=== PATIENT | female | born 1975 | race Caucasian/White ===

== ENCOUNTER 2020-05-12 14:20 | Outpatient (REF) | payer OTHER, SELFPAY ==
--- NOTE | 2020-05-12 14:57 | XR_ITS ---
EXAMINATION: XR FOOT, RIGHT CLINICAL INFORMATION: Pain in right foot COMPARISON: 04/17/2019 right ankle radiographs TECHNIQUE: AP, lateral, and oblique views of the right foot. FINDINGS: There is no fracture or dislocation. Alignment is anatomic. Joint spaces are maintained. The soft tissues are unremarkable. There is moderate hypertrophic spurring of the Achilles insertion to the calcaneus. XR/XR foot RT 2V IMPRESSION: Prominent Achilles heel spur. Otherwise unremarkable study.
== END 2020-05-12 14:21 | disposition home or self-care (01) ==
LOC: HO.XRAY 14:20
PROVIDERS: PCP Internal Medicine Geriatric Medicine; Visit Provider Internal Medicine Geriatric Medicine
DX: M79.671 Pain in right foot (principal)
CPT/HCPCS: 73620

== ENCOUNTER 2020-06-11 09:32 | Outpatient (REF) | payer OTHER, SELFPAY ==
--- NOTE | 2020-06-11 09:45 | EMG_ITS ---
Right median and ulnar motor and sensory studies were performed. Right radial sensory study was performed and paraspinal muscles were tested. IMPRESSION: Mild right median neuropathy across carpal tunnel. MD THERESA Swift/DOLLY / [id number]
== END 2020-06-11 09:33 | disposition home or self-care (01) ==
LOC: HO.NEURO 09:32
PROVIDERS: PCP Internal Medicine Geriatric Medicine; Visit Provider Internal Medicine Geriatric Medicine
DX: R20.0 Anesthesia of skin (principal)
CPT/HCPCS: 95886; 95909

== ENCOUNTER 2020-10-19 15:09 | Outpatient (REF) | payer OTHER, SELFPAY ==
[2020-10-19 16:20] LABS: MANUAL DIFF FLAG NO
[2020-10-19 16:29] LABS: Basophils Percent Auto 0.2 % (0-2); Eosinophils Absolute Auto 0.2 X10*3/uL (0.0-0.4); Eosinophils Percent Auto 1.6 % (0-4); Hematocrit 38.1 % (37-47); Hemoglobin 12.1 g/dl (12.0-16.0); Imm Gran Abs Auto 0.03 X10*3/uL (0.00-0.03); Imm Gran Pct Auto 0.3 % (0.0-0.4); Lymphocytes Absolute Auto 3.2 X10*3/uL (1.2-4.9); Lymphocytes Percent Auto 35.4 % (20-40); Mean Corpuscular HGB Conc 31.8 g/dl (31.0-35.0); Mean Corpuscular Hemoglobin 28.7 pg (27.0-33.0); Mean Corpuscular Volume 90.3 fL (80-98); Mean Platelet Volume 10.3 fL (9.4-12.3); Monocytes Absolute Auto 0.6 X10*3/uL (0.1-1.2); Monocytes Percent Auto 6.8 % (2-11); Neutrophils Absolute Auto 5.1 X10*3/uL (2.0-8.3); Neutrophils Percent Auto 55.7 % (45-73); Platelet Count 377 X10*3/uL (160-400); Red Blood Count 4.22 X10*6/uL (4.20-5.50); Red Cell Distribution Width 13.2 % (11.0-16.0); White Blood Count 9.1 X10*3/uL (4.8-10.8)
[2020-10-19 17:03] LABS: Alanine Aminotransferase 15 U/L (0-31); Albumin Level 4.3 g/dL (3.5-5.0); Alkaline Phosphatase 71 U/L (39-117); Amylase 29 U/L (28-100); Anion Gap 14 (12-20); Aspartate Amino Transferase 14 U/L (5-31); Bilirubin Total 0.2 mg/dL (0.0-1.0); Blood Urea Nitrogen 9 mg/dL (9-16); Calcium 9.3 mg/dL (8.4-10.2); Carbon Dioxide 27 mmol/L (22-29); Chloride 105 mmol/L (96-108); Estimated Glomerular Filt Rate 60; Glucose Random 91 mg/dL (60-115); Lipase 19 U/L (8-78); Potassium 3.7 mmol/L (3.3-5.1); Sodium 142 mmol/L (135-145); Total Protein 7.1 g/dL (6.5-8.0)
[2020-10-19 17:51] LABS: Free T4 (Free Thyroxine) 1.21 ng/dL (0.71-1.85)
[2020-10-19 18:02] LABS: Glucose Urine UA NEG (NEG); Leukocyte Esterase Urine NEG (NEG); Nitrite Urine NEG (NEG); PH 5.5 (5.0-8.0); Specific Gravity - Urine >= 1.030 (1.005-1.025); Urine Blood TRACE (NEG); Urine Ketones 5 MG/DL (NEG); Urine Protein TRACE MG/DL (NEG-TRACE)
[2020-10-19 18:05] LABS: Appearance Urine CLEAR; Color Urine AMBER
[2020-10-19 18:29] LABS: Bacteria Urine 3+ /LPF; RBC Urine 0-2 /HPF (0); Squamous Epithelial Cell Urine 3+ /LPF
== END 2020-10-19 15:10 | disposition home or self-care (01) ==
LOC: HO.HMGCLDS 15:09
PROVIDERS: PCP Internal Medicine Geriatric Medicine; Visit Provider Nurse Practitioner Family
DX: R10.9 Unspecified abdominal pain (principal)
CPT/HCPCS: 36415; 80053; 81001; 81003; 82150; 83690; 84439; 84443; 85025

== ENCOUNTER → 2021-03-16 14:08 | Outpatient (REF) | payer OTHER, SELFPAY | LOC: HO.SL 14:08 | PROVIDERS: PCP Internal Medicine Geriatric Medicine; Visit Provider Internal Medicine Geriatric Medicine | DX: R06.81 Apnea, not elsewhere classified (principal); R06.83 Snoring; R40.0 Somnolence; R51.9 Headache, unspecified | CPT/HCPCS: 95806 ==

== ENCOUNTER 2021-05-04 14:33 | Outpatient (REF) | payer OTHER, SELFPAY ==
--- NOTE | ~2021-05-04 | XR_ITS ---
EXAMINATION: XR FOOT, RIGHT CLINICAL INFORMATION: Pain COMPARISON: Previous x-ray April 2020 TECHNIQUE: AP, lateral, and oblique views of the right foot. FINDINGS: Bone alignment is normal. No fracture or dislocation is seen. Joint spaces are normal. There is a calcaneal spur at the Achilles tendon insertion. XR/XR foot RT min 3V IMPRESSION: Calcaneal spur at the Achilles tendon insertion similar to previous exam.
--- NOTE | ~2021-05-04 | XR_ITS ---
EXAMINATION: XR LUMBOSACRAL SPINE WITH OBLIQUES CLINICAL INFORMATION: Pain COMPARISON: Previous x-ray March 2014 TECHNIQUE: AP, both oblique, and lateral views of the lumbar spine. Lateral view of the lumbosacral junction. FINDINGS: Bone alignment is normal. No fracture or dislocation is seen. There is mild disc space narrowing at L5-S1. There is lower lumbar spine facet arthritis. Paraspinal soft tissues are unremarkable. XR/XR lumbar spine 4V min IMPRESSION: Mild degenerative changes of the lower lumbar spine.
[2021-05-04 15:11] LABS: Hematocrit 35.1 % (37.0-47.0); Hemoglobin 11.6 g/dl (12.0-16.0); Mean Corpuscular Volume 87.8 fL (80.0-98.0); Mean Platelet Volume 9.8 fL (9.4-12.3); Platelet Count 354 X10*3/uL (160-400); Red Cell Distribution Width 13.1 % (11.0-16.0); White Blood Count 9.6 X10*3/uL (4.8-10.8)
[2021-05-04 15:24] LABS: Estimated Average Glucose 123 mg/dL; Hemoglobin A1c % 5.9 %
[2021-05-04 15:39] LABS: Alanine Aminotransferase 26 U/L (0-31); Albumin Level 4.4 g/dL (3.5-5.0); Alkaline Phosphatase 71 U/L (39-117); Anion Gap 12 (12-20); Aspartate Amino Transferase 18 U/L (5-31); Bilirubin Total 0.4 mg/dL (0.0-1.0); Blood Urea Nitrogen 6 mg/dL (9-16); Calcium 8.3 mg/dL (8.4-10.2); Carbon Dioxide 28 mmol/L (22-29); Chloride 105 mmol/L (96-108); Cholesterol 250 mg/dL; Estimated Glomerular Filt Rate > 60; Glucose Random 97 mg/dL (60-115); HDL Cholesterol 32 mg/dL; LDL Cholesterol Calculated 169 mg/dl; Potassium 3.9 mmol/L (3.3-5.1); Sodium 141 mmol/L (135-145); Total Protein 7.2 g/dL (6.5-8.0); Triglycerides 245 mg/dL
[2021-05-04 16:00] LABS: TSH reflex Free T4 0.29 uIU/mL (0.32-4.0)
[2021-05-04 17:28] LABS: Free T4 (Free Thyroxine) 1.15 ng/dL (0.71-1.85)
== END 2021-05-04 14:34 | disposition home or self-care (01) ==
LOC: HO.XRAY 14:33
PROVIDERS: PCP Internal Medicine Geriatric Medicine; Visit Provider Internal Medicine Geriatric Medicine
DX: Z00.00 Encounter for general adult medical examination without abnormal findings (principal); M54.59 Other low back pain; M79.671 Pain in right foot; E03.9 Hypothyroidism, unspecified; G89.29 Other chronic pain; M54.50 Low back pain, unspecified; Z13.1 Encounter for screening for diabetes mellitus; Z13.220 Encounter for screening for lipoid disorders; Z72.0 Tobacco use
CPT/HCPCS: 36415; 72110; 73630; 80053; 80061; 83036; 84439; 84443; 85027

== ENCOUNTER 2021-05-07 13:58 | Outpatient (REF) | payer OTHER, SELFPAY ==
--- NOTE | ~2021-05-07 | XR_ITS ---
EXAMINATION: XR KNEE, RIGHT CLINICAL INFORMATION: Pain COMPARISON: None TECHNIQUE: Four views of the right knee. FINDINGS: Bones and soft tissues are normal. No fracture or joint effusion. Alignment is anatomic. Joint spaces are well maintained. No abnormal soft tissue calcification. XR/XR knee RT 4V IMPRESSION: Normal right knee.
== END 2021-05-07 13:59 | disposition home or self-care (01) ==
LOC: HO.XRAY 13:58
PROVIDERS: Visit Provider Internal Medicine Geriatric Medicine
DX: M25.561 Pain in right knee (principal)
CPT/HCPCS: 73564

== ENCOUNTER 2021-06-03 09:34 | Outpatient (REF) | payer OTHER, SELFPAY ==
--- NOTE | ~2021-06-03 | US_ITS ---
EXAMINATION: US SOFT TISSUE CLINICAL INFORMATION: Posterior right knee pain. Assess for popliteal fossa cyst. COMPARISON: Radiographs right knee 05/07/2021 TECHNIQUE: Ultrasound right popliteal fossa is performed using grayscale imaging and color Doppler. FINDINGS: There is a popliteal fossa cyst measuring 3.5 x 0.8 x 2.6 cm. There is a small satellite fluid extension measuring under 1 cm. US/US extremity nonvascular IMPRESSION: Small popliteal fossa cyst, larger component 3.5 x 0.8 x 2.6 cm.
== END 2021-06-03 09:35 | disposition home or self-care (01) ==
LOC: HO.HMGCX 09:34
PROVIDERS: PCP Internal Medicine Geriatric Medicine; Visit Provider Nurse Practitioner Primary Care
DX: M25.561 Pain in right knee (principal)
CPT/HCPCS: 76882

== ENCOUNTER 2021-06-28 12:50 | Outpatient (REF) | payer OTHER, SELFPAY | END 2021-06-28 12:51 | disposition home or self-care (01) | LOC: HO.HMGCLDS 12:50 | PROVIDERS: Visit Provider Internal Medicine | DX: Z20.822 Contact with and (suspected) exposure to COVID-19 (principal) | CPT/HCPCS: C9803; U0003; U0005 ==

== ENCOUNTER 2021-07-05 12:29 | Outpatient (REF) | payer OTHER, SELFPAY ==
[2021-07-05 13:14] LABS: Binax Internal Control QC Valid; Binax Now Covid-19 Ag Negative (Negative)
== END 2021-07-05 12:30 | disposition home or self-care (01) ==
LOC: HO.EMPCOV 12:29
PROVIDERS: Visit Provider Internal Medicine
DX: Z20.822 Contact with and (suspected) exposure to COVID-19 (principal)
CPT/HCPCS: 36415; C9803

== ENCOUNTER 2021-07-19 06:36 | Outpatient (REF) | payer OTHER, SELFPAY ==
[2021-07-19 07:33] LABS: Cholesterol 288 mg/dL; HDL Cholesterol 35 mg/dL; LDL Cholesterol Calculated 211 mg/dl; Triglycerides 214 mg/dL
== END 2021-07-19 06:37 | disposition home or self-care (01) ==
LOC: HO.LAB 06:36
PROVIDERS: PCP Internal Medicine Geriatric Medicine; Visit Provider Internal Medicine Geriatric Medicine
DX: M25.561 Pain in right knee (principal)
CPT/HCPCS: 36415; 80061

== ENCOUNTER 2021-10-19 14:55 | Outpatient (REF) | payer OTHER, SELFPAY ==
--- NOTE | ~2021-10-19 | MM_ITS ---
EXAMINATION: MM SCREENING DIGITAL BREAST TOMOSYNTHESIS, BILATERAL CLINICAL INFORMATION: Screening. Asymptomatic. The lifetime risk of breast cancer based on the Tyrer-Cuzick Model is 7%. COMPARISON: Mammography: 11/15/2018, 10/06/2016 TECHNIQUE: Digital breast tomosynthesis is performed in both the craniocaudal and mediolateral oblique views along with computer-aided detection (CAD). Synthesized 2D images are generated from the tomosynthesis. FINDINGS: There are scattered areas of fibroglandular density (ACR BI-RADS breast composition Category b). Findings fibronodular parenchymal pattern is similar to prior studies. No interval significant mass or architectural abnormality or abnormal calcifications. The axilla and skin contours are unremarkable. MM/MM tomosynthesis screening BI IMPRESSION: No significant changes from prior studies. ASSESSMENT: BI-RADS 2: Benign RECOMMENDATION: Routine annual mammography screening. This patient's information was entered into a reminder system with a target due date for their next mammogram.
== END 2021-10-19 14:56 | disposition home or self-care (01) ==
LOC: HO.MAMMO 14:55
PROVIDERS: PCP Internal Medicine Geriatric Medicine; Visit Provider Internal Medicine Geriatric Medicine
DX: Z12.31 Encounter for screening mammogram for malignant neoplasm of breast (principal)
CPT/HCPCS: 77063; 77067

== ENCOUNTER 2022-02-14 07:05 | Outpatient (REF) | payer OTHER, SELFPAY ==
[2022-02-14 08:33] LABS: Hematocrit 36.3 % (37.0-47.0); Hemoglobin 11.5 g/dl (12.0-16.0); Mean Corpuscular HGB Conc 31.7 g/dl (31.0-35.0); Mean Corpuscular Hemoglobin 27.6 pg (27.0-33.0); Mean Corpuscular Volume 87.3 fL (80.0-98.0); Mean Platelet Volume 10.3 fL (9.4-12.3); Platelet Count 407 X10*3/uL (160-400); Red Blood Count 4.16 X10*6/uL (4.20-5.50); Red Cell Distribution Width 13.4 % (11.0-16.0); White Blood Count 8.8 X10*3/uL (4.8-10.8)
[2022-02-14 08:38] LABS: Estimated Average Glucose 134 mg/dL; Hemoglobin A1c % 6.3 %
[2022-02-14 08:57] LABS: Alanine Aminotransferase 41 U/L (0-31); Albumin Level 4.2 g/dL (3.5-5.0); Alkaline Phosphatase 86 U/L (39-117); Anion Gap 16 (12-20); Aspartate Amino Transferase 30 U/L (5-31); Bilirubin Direct < 0.2 mg/dL (0.0-0.5); Bilirubin Total 0.2 mg/dL (0.0-1.0); Blood Urea Nitrogen 12 mg/dL (9-16); Calcium 9.3 mg/dL (8.4-10.2); Carbon Dioxide 26 mmol/L (22-29); Chloride 103 mmol/L (96-108); Cholesterol 272 mg/dL; Estimated Glomerular Filt Rate > 60; Glucose Random 137 mg/dL (60-115); HDL Cholesterol 37 mg/dL; LDL Cholesterol Calculated 200 mg/dl; Potassium 3.9 mmol/L (3.3-5.1); Sodium 141 mmol/L (135-145); Total Protein 7.3 g/dL (6.5-8.0); Triglycerides 179 mg/dL
[2022-02-14 10:06] LABS: Free T4 (Free Thyroxine) 0.55 ng/dL (0.71-1.85)
== END 2022-02-14 07:06 | disposition home or self-care (01) ==
LOC: HO.LAB 07:05
PROVIDERS: PCP Internal Medicine Geriatric Medicine; Visit Provider Internal Medicine Geriatric Medicine
DX: E03.9 Hypothyroidism, unspecified (principal); E78.00 Pure hypercholesterolemia, unspecified; R63.5 Abnormal weight gain; Z13.1 Encounter for screening for diabetes mellitus; Z79.899 Other long term (current) drug therapy
CPT/HCPCS: 36415; 80048; 80061; 80076; 83036; 84439; 84443; 85027

== ENCOUNTER 2022-03-11 07:17 | Outpatient (REF) | payer OTHER, SELFPAY ==
--- NOTE | ~2022-03-11 | MR_ITS ---
EXAMINATION: MR LUMBAR SPINE WITHOUT CONTRAST CLINICAL INFORMATION: Bilateral lower extremity weakness and numbness. COMPARISON: Lumbar spine radiographs 05/04/2021. TECHNIQUE: MRI of the lumbar spine was obtained using routine sequences without contrast. FINDINGS: Alignment is normal. Vertebral heights are preserved. No acute bone marrow signal changes. There is slight loss of intervertebral disc height and T2 signal intensity at L5-S1. There is a shallow left central protrusion at L5-S1 causing indentation of the thecal sac and abutment of both traversing S1 nerve roots. Otherwise no mass effect on the traversing or foraminal nerve roots elsewhere within the lumbar spine. No canal stenosis. The tip of the conus medullaris is located at L1. No mass effect on the conus. Visualized distal cord signal intensity is normal. Limited visualization of the retroperitoneal anatomy reveals no abnormal finding. Psoas and paraspinal superficial symmetric. MR/MR lumbar spine wo con IMPRESSION: There is a broad shallow left central protrusion at L5-S1 causing abutment of both traversing S1 nerve roots. Otherwise no substantial mass effect on the traversing or foraminal nerve roots elsewhere the lumbar spine. No canal stenosis.
== END 2022-03-11 07:18 | disposition home or self-care (01) ==
LOC: HO.MRI 07:17
PROVIDERS: Visit Provider Internal Medicine Geriatric Medicine
DX: M54.16 Radiculopathy, lumbar region (principal); R20.0 Anesthesia of skin; R20.2 Paresthesia of skin; R29.898 Other symptoms and signs involving the musculoskeletal system
CPT/HCPCS: 72148

== ENCOUNTER 2022-03-16 05:57 | Outpatient (REF) | payer OTHER, SELFPAY ==
--- NOTE | ~2022-03-16 | FL_ITS ---
EXAMINATION: XR FLUOROSCOPY WITH IMAGES CLINICAL INFORMATION: M54.16 - Radiculopathy, lumbar region COMPARISON: MR lumbar spine 03/11/2022 TECHNIQUE: Fluoroscopy performed by Dr. Tab Arroyo. Fluoroscopy time: 0.1 minutes. Cumulative Dose: 5.29 mGy. DAP: 0.667 Gy-cm2. Images: 2. FINDINGS: There is posterior interlaminar spinal needle at level of L5-S1. There is contrast in the epidural space. No visible vascular communication. FL/FL guidance in treatment room IMPRESSION: Fluoroscopy for pain management procedure.
== END 2022-03-16 05:58 | disposition home or self-care (01) ==
LOC: HO.RADIR 05:57
PROVIDERS: Visit Provider Internal Medicine
DX: M54.16 Radiculopathy, lumbar region (principal)
CPT/HCPCS: 62323; J1040

== ENCOUNTER 2022-05-09 06:23 | Outpatient (REF) | payer OTHER, SELFPAY ==
[2022-05-09 08:10] LABS: Estimated Average Glucose 137 mg/dL; Hemoglobin A1C 143.1744 umol/L; Hemoglobin A1c % 6.4 %
[2022-05-09 08:40] LABS: Anion Gap 16 (12-20); Blood Urea Nitrogen 12 mg/dL (9-16); Calcium 9.6 mg/dL (8.4-10.2); Carbon Dioxide 24 mmol/L (22-29); Chloride 108 mmol/L (96-108); Estimated Glomerular Filt Rate > 60; Glucose Random 115 mg/dL (60-115); Potassium 4.2 mmol/L (3.3-5.1); Sodium 144 mmol/L (135-145); TSH reflex Free T4 0.72 uIU/mL (0.32-4.0)
== END 2022-05-09 06:24 | disposition home or self-care (01) ==
LOC: HO.LAB 06:23
PROVIDERS: PCP Internal Medicine Geriatric Medicine; Visit Provider Internal Medicine Geriatric Medicine
DX: E03.9 Hypothyroidism, unspecified (principal); R73.03 Prediabetes
CPT/HCPCS: 36415; 80048; 83036; 84443

== ENCOUNTER 2022-06-28 16:00 | Outpatient (RCR) | payer OTHER, SELFPAY ==
--- NOTE | 2022-05-10 17:55 | MHC.PT.EP ---
[facility] [place] Office [place] Office [place] Office [address] Julissa Lyon [address] [phone] F: [phone] F: [phone] F: [phone] F: [phone] Physical Therapy Plan of Care Date of Evaluation: Date of Surgery: N/A Diagnosis: lumbar radiculopathy (RC) Assessment: pt is a 47 y/o female presenting to physical therapy w/ referring diagnosis of lumbar radiculopathy. MRI (+) for disc protrusion at level L5-S1 affected B nerve roots. Impairments include pain, decreased range of motion, decreased strength, impaired functional mobility, impaired postural awareness, and altered ambulation mechanics. pt is a good candidate for skilled PT due to age, potential remediation of impairments, typical disease/condition progression and prognosis, comorbidities, and motivation. pt would benefit from skilled PT intervention to provide a tailored strengthening and stretching exercise program, functional training, gait training, postural re-training, neuromuscular re-education, modalities as needed for pain, equipment safety demonstration. Frequency and Duration: The patient will be seen 2x/wk for 4 wks Short Term Goals: pt will be I w/ HEP to promote self-management of condition. pt will demo proper sitting posture w/ lumbar roll to promote neutral spine w/ seated ADLs. 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 pt will report a statistically significant improvement in self-reported outcome measure, Kaley, to promote return to PLOF. Treatment Plan: Modalities to reduce pain, spasms and effusion. Manual therapy to restore motion and function. Therapeutic exercise to improve strength and flexibility. Neuromuscular re-education for posture and balance. Therapeutic activities to return to functional activities of daily living. Electronically signed by: Daniela Locke PT, DPT Please sign and return to therapist. Thank you for your referral.
--- NOTE | 2022-07-27 15:09 | MHC.PT.DC ---
[facility] [place] Office [place] Office [place] Office [address] Julissa Lyon [address] [phone] F: [phone] F: [phone] F: [phone] F: [phone] Physical Therapy Discharge Report Diagnosis: lumbar radiculopathy (RC) Date of Surgery: N/A Date of Evaluation: 05/10/22 Date of Discharge: 07/27/22 Treatments to Date: 8 Cancellations to Date: 4 No Shows to Date: 1 Discharge Status: Improved Function Independent with HEP Discharge Summary: The patient has not followed-up with any additional appointments in nearly a month. At her last appointment on 06/28/22 she was reporting 2/10 pain and was compliant with home exercise program. She was educated in proper lifting mechanics and encouraged to continue with her exercise program at home. She is discharged from this physical therapy plan of care. Electronically signed by: Daniela Locke PT, DPT Please sign and return to therapist. Thank you for your referral.
== END 2022-07-27 15:09 | disposition home or self-care (01) ==
LOC: HO.PT 16:00
PROVIDERS: PCP Internal Medicine Geriatric Medicine; Visit Provider Internal Medicine
DX: M54.16 Radiculopathy, lumbar region (principal)
CPT/HCPCS: 97110; 97112; 97162; 97530

== ENCOUNTER → 2022-07-04 15:48 | Outpatient (BNVA) | payer OTHER, SELFPAY | PROVIDERS: PCP Internal Medicine Geriatric Medicine; Visit Provider Internal Medicine | DX: Z13.89 Encounter for screening for other disorder (principal) ==

== ENCOUNTER 2022-07-13 06:08 | Outpatient (REF) | payer OTHER, SELFPAY ==
--- NOTE | ~2022-07-13 | FL_ITS ---
EXAMINATION: XR FLUOROSCOPY WITH IMAGES CLINICAL INFORMATION: Radiculopathy lumbar region. COMPARISON: 03/16/2022 TECHNIQUE: Fluoroscopy Supervised By: Dr. Tab Arroyo. Fluoroscopy Time: 0.3 minutes. Cumulative Dose: 23.3 mGy. DAP: 1.88 Gycm2. Images: 2. FINDINGS: Very limited AP and oblique fluoroscopic images are available for review. On provided imaging, I cannot tell at what disc space the needle and contrast are. FL/FL guidance in treatment room IMPRESSION: Intraoperative fluoroscopy for pain management procedure.
== END 2022-07-13 06:09 | disposition home or self-care (01) ==
LOC: CF 06:08
PROVIDERS: Visit Provider Internal Medicine
DX: M54.16 Radiculopathy, lumbar region (principal)
CPT/HCPCS: 62323; J1040

== ENCOUNTER → 2022-08-12 10:02 | Outpatient (BNVA) | payer OTHER, SELFPAY | PROVIDERS: PCP Internal Medicine Geriatric Medicine; Visit Provider Internal Medicine | DX: Z13.89 Encounter for screening for other disorder (principal) ==

== ENCOUNTER → 2022-08-19 10:09 | Outpatient (BNVA) | payer OTHER, SELFPAY | PROVIDERS: PCP Internal Medicine Geriatric Medicine; Visit Provider Internal Medicine Gastroenterology | DX: Z13.89 Encounter for screening for other disorder (principal) ==

== ENCOUNTER 2022-08-24 14:15 | Outpatient (REF) | payer OTHER, SELFPAY ==
[2022-08-24 16:18] LABS: MANUAL DIFF FLAG NO
[2022-08-24 17:41] LABS: Basophils Percent Auto 0.3 % (0-2); Eosinophils Absolute Auto 0.2 X10*3/uL (0.0-0.4); Eosinophils Percent Auto 1.7 % (0-4); Hematocrit 38.1 % (37.0-47.0); Hemoglobin 12.1 g/dl (12.0-16.0); Imm Gran Abs Auto 0.09 X10*3/uL (0.00-0.03); Lymphocytes Absolute Auto 3.2 X10*3/uL (1.2-4.9); Lymphocytes Percent Auto 33.6 % (20-40); Mean Corpuscular HGB Conc 31.8 g/dl (31.0-35.0); Mean Corpuscular Hemoglobin 27.9 pg (27.0-33.0); Mean Corpuscular Volume 87.8 fL (80.0-98.0); Mean Platelet Volume 10.4 fL (9.4-12.3); Monocytes Absolute Auto 0.6 X10*3/uL (0.1-1.2); Monocytes Percent Auto 6.1 % (2-11); Neutrophils Absolute Auto 5.4 x10*3/uL (2.0-8.3); Neutrophils Percent Auto 57.3 % (45-73); Platelet Count 399 X10*3/uL (160-400); Red Blood Count 4.34 X10*6/uL (4.20-5.50); Red Cell Distribution Width 14.2 % (11.0-16.0); White Blood Count 9.4 X10*3/uL (4.8-10.8)
[2022-08-24 18:26] LABS: Alanine Aminotransferase 48 U/L (0-31); Albumin Level 4.3 g/dL (3.5-5.0); Alkaline Phosphatase 88 U/L (39-117); Anion Gap 13 (12-20); Aspartate Amino Transferase 34 U/L (5-31); Bilirubin Total 0.2 mg/dL (0.0-1.0); Blood Urea Nitrogen 9 mg/dL (9-16); Calcium 9.3 mg/dL (8.4-10.2); Carbon Dioxide 27 mmol/L (22-29); Chloride 104 mmol/L (96-108); Estimated Glomerular Filt Rate > 60; Glucose Random 105 mg/dL (60-115); Potassium 4.4 mmol/L (3.3-5.1); Sodium 140 mmol/L (135-145); Total Protein 7.6 g/dL (6.5-8.0)
[2022-08-24 18:45] LABS: Ferritin 42 ng/mL (10-250); Folate 10.4 ng/mL (> or = 4.0); Vitamin B12 202 pg/mL (200-900)
== END 2022-08-24 14:16 | disposition home or self-care (01) ==
LOC: HO.LAB 14:15
PROVIDERS: PCP Internal Medicine Geriatric Medicine; Visit Provider Internal Medicine Gastroenterology
DX: K75.81 Nonalcoholic steatohepatitis (NASH) (principal); D64.9 Anemia, unspecified; R10.9 Unspecified abdominal pain
CPT/HCPCS: 36415; 80053; 82607; 82728; 82746; 85025

== ENCOUNTER 2022-08-26 08:25 | Outpatient (REF) | payer OTHER, SELFPAY ==
--- NOTE | ~2022-08-26 | US_ITS ---
EXAMINATION: US COMPLETE ABDOMEN WITH LIVER ELASTOGRAPHY CLINICAL INFORMATION: Abdominal bloating and pain; anemia. COMPARISON: None. TECHNIQUE: Real-time imaging of the abdominal viscera. Noninvasive ultrasound liver fibrosis assessment is performed using Brigid ElastPQ point quantification shear wave elastography (2D-SWE) with a C5-2 MHz transducer. Multiple elastography samples are obtained. FINDINGS: PANCREAS: Largely obscured by overlapping bowel gas. ABDOMINAL AORTA: The proximal, middle, and distal aortic segments are normal in caliber. INFERIOR VENA CAVA: Visualized portions are normal. LIVER: The liver demonstrates normal size, contour and generally increased echogenicity. No focal lesion or intrahepatic biliary duct dilatation. The right lobe measures 22.2 cm in length. The left lobe measures 14.1 cm in length. Portal flow is towards the liver (hepatopetal). Shear wave liver elastography median stiffness is 1.33 m/s (reference: normal median stiffness is 1.3 m/s or less). IQR/median stiffness to assess sampling precision is 0.0. (reference: good quality data set is IQR/median stiffness of 0.15 or less). GALLBLADDER: Normal. The gallbladder is physiologically distended without evidence of stones, sludge, polyps, wall thickening or pericholecystic fluid. COMMON BILE DUCT: Normal in caliber measuring 0.6 cm in diameter. RIGHT KIDNEY: Normal. No hydronephrosis. No renal calculi or focal parenchymal lesions. The kidney measures 11.7 cm in maximum dimension. LEFT KIDNEY: Normal. No hydronephrosis. No renal calculi or focal parenchymal lesions. The kidney measures 11.6 cm in maximum dimension. SPLEEN: Normal. The spleen measures 9.3 cm in maximum dimension. FREE FLUID: None. US/US abdomen comp w elastography IMPRESSION: 1. There is generalized increase in hepatic echotexture, consistent with fatty infiltration or hepatocellular disease. Please correlate clinically. No focal hepatic mass or intrahepatic biliary dilatation is seen. 2. There is hepatomegaly. 3. Liver elastography: In the absence of other known clinical signs, measurements rule out compensated advanced chronic liver disease. If there are known clinical signs, further testing may be needed for confirmation. REFERENCE: Society of Radiologists in Ultrasound Liver Stiffness Thresholds (2020): LIVER STIFFNESS THRESHOLDS: *Liver Stiffness equal or less than 1.3 m/s: High probability of being normal. *Liver Stiffness less than 1.7 m/s: In the absence of other known clinical signs, rules out compensated advanced chronic liver disease. *Liver Stiffness 1.7-2.1 m/s: Suggestive of compensated advanced chronic liver disease but need further test for confirmation. *Liver Stiffness over 2.1 m/s: Rules in compensated advanced chronic liver disease. *Liver Stiffness over 2.4 m/s: Suggestive of clinically significant portal hypertension. QUALITY OF DATA SET: *IQR/Median value equal or less than 0.15 implies a quality data set. *IQR/Median value over 0.15 implies a poor quality data set. SIGNIFICANT CHANGE FROM PRIOR EXAM: Significant change if liver stiffness measurement is 10% or greater from prior exam. OTHER CONSIDERATIONS: The stage of liver fibrosis may be overestimated in the setting of acute hepatitis, liver inflammation, elevated liver function tests, hepatic vascular congestion, obstructive cholestasis, non-fasting state, and infiltrative diseases such as amyloidosis and lymphoma. In some patients with NAFLD, the liver stiffness thresholds for compensated advanced chronic liver disease may be lower. In causes other than viral hepatitis and NAFLD, liver stiffness thresholds are not well established.
== END 2022-08-26 08:26 | disposition home or self-care (01) ==
LOC: HO.US 08:25
PROVIDERS: Visit Provider Internal Medicine Gastroenterology
DX: D64.9 Anemia, unspecified (principal); R10.9 Unspecified abdominal pain
CPT/HCPCS: 76705; 76981

== ENCOUNTER → 2022-09-15 14:51 | Outpatient (BNVA) | payer OTHER, SELFPAY | PROVIDERS: PCP Internal Medicine Geriatric Medicine; Visit Provider Physician Assistant | DX: Z13.89 Encounter for screening for other disorder (principal) ==

== ENCOUNTER 2022-10-05 08:03 | Outpatient (REF) | payer OTHER, SELFPAY ==
--- NOTE | ~2022-10-05 | MR_ITS ---
EXAMINATION: MR ANKLE WITHOUT CONTRAST, RIGHT CLINICAL INFORMATION: Chronic heel pain, right. COMPARISON: X-ray of the right foot April 2021 and x-ray of the right ankle March 2019. TECHNIQUE: MRI of the right ankle performed without contrast on a high-field MRI scanner. FINDINGS: SUBCUTANEOUS SOFT TISSUES: Mild scattered edema circumferentially about the ankle and visualized foot. PLANTAR FASCIA: Normal. MUSCLES/TENDONS: Minimal heterogeneity of the distal Achilles tendon compatible with tendinosis. No definite tear. Remaining muscles and tendons are normal. NEUROVASCULAR STRUCTURES/TARSAL TUNNEL: Normal. LIGAMENTS: Normal. Subchondral cystic change. TALOCRURAL JOINT: Along the medial aspect of the weightbearing tibial articular surface, there is a 5 mm subchondral cystic change likely reflecting a subtle overlying cartilage abnormality/arthrosis. Talar cartilage is normal. No effusion. Overall mild/focal arthrosis. Remaining bone and joints normal. MR/MR ankle RT wo con IMPRESSION: 1. Mild edema in the subcutaneous soft tissues. 2. Mild arthrosis of the talocrural joint. 3. Minimal tendinosis of the distal Achilles tendon.
== END 2022-10-05 08:04 | disposition home or self-care (01) ==
LOC: HO.MRI 08:03
PROVIDERS: PCP Internal Medicine Geriatric Medicine; Visit Provider Internal Medicine Geriatric Medicine
DX: M79.671 Pain in right foot (principal); G89.29 Other chronic pain
CPT/HCPCS: 73721

== ENCOUNTER → 2022-12-09 09:29 | Outpatient (BNVA) | payer OTHER, SELFPAY | PROVIDERS: PCP Internal Medicine Geriatric Medicine; Visit Provider Internal Medicine Gastroenterology ==

== ENCOUNTER 2022-12-13 07:00 | Outpatient (RCR) | payer OTHER, SELFPAY ==
--- NOTE | 2022-11-07 14:44 | MHC.PT.EP ---
[facility] [place] Office [place] Office [place] Office [address] Julissa Lyon [address] [phone] F: [phone] F: [phone] F: [phone] F: [phone] Physical Therapy Plan of Care Date of Evaluation: Date of Surgery: Diagnosis: Rt LE PERONEAL AND ACHILLES' TENDONITIS-> ROM, GENTLE STRENGTH, PROPRIOCEPTION TRAINING, HEEL CORD STRETCHING Assessment: 47 YO FEMALE REF TO PT FOR Rt ACHILLES' / PERONEAL TENDONITIS GRADUALLY PROGRSSIVE SINCE 02/2020 AND THE Pt DENIESTRAUMA OR INCIDENT. Pt HAD ORTHO CONSULT IN 08/2022 AND WAS ISSUED A TALL WALKING BOOT, WHICH SHE USED BRIEFLY, W RELIEF, HOWEVER, SHE D/C'D BOOT DUE TO EXACERBATION OF HER SCIATICA. 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 SHE STATES HER PAIN IS WORSE W PROLONGED STANDING, SITTING, AND DESCENDING STAIRS. OBJECTIVE FINDINGS:DECR AROM REINALDO ANKLES AND HIPS, (+) GENU RECURVATUM, DECR LUMBOPELVIC STAB W (+) ASYMM, CORE AND PROX LEs WEAKNESS, AND PAIN IN MEDAIL Rt ANKLE/ AND ACHILLES Rt. THE Pt WOULD BENEFIT FROM PT TO ADDRESS THE ABOVE AND TREAT Rt PERONEAL/ ACHILLES' TENDONITIS. Frequency and Duration: The patient will be seen 2 X wk X 5 wks Short Term Goals: *DECR Rt ANKLE/FOOT PAIN TO 2-3/10 W REG ADLs *IMPROVE AROM/ FLEXIB REINALDO LEs, ESPEC DISTALLY *INITIATE LUMBOPELVIC STAB / STRENGTH TO REDUCE LLI EFFECT Dry Chain Operator Goals: *Pt DEMON EFFICIENT GAIT MECHANICS ON LEVEL GROUND AND STAIRS *Pt INDEP W HEP PROGRESSIONAND SELF SX MGMT STRATEGIES *Pt RESUME REG ADLs, ESPEC FITNESS WALKING, EVIDENTW IMPROVED LEFI SCORE (AT EVAL 48/80) *Pt INCRLE STRENGTH BY 1 GRADE Treatment Plan: Modalities to reduce pain, spasms and effusion. Manual therapy to restore motion and function. Therapeutic exercise to improve strength and flexibility. Neuromuscular re-education for posture and balance. Therapeutic activities to return to functional activities of daily living. Electronically signed by: ZOE ALEJO,PT Please sign and return to therapist. Thank you for your referral.
== END 2023-02-17 08:38 | disposition home or self-care (01) ==
LOC: HO.PT 07:00
PROVIDERS: PCP Internal Medicine Geriatric Medicine; Visit Provider Physician Assistant
DX: M76.71 Peroneal tendinitis, right leg (principal); M76.61 Achilles tendinitis, right leg
CPT/HCPCS: 97110; 97162; 97530

== ENCOUNTER 2023-01-11 06:48 | Outpatient (REF) | payer OTHER, SELFPAY ==
[2023-01-11 08:23] LABS: TSH reflex Free T4 17.44 uIU/mL (0.32-4.0)
[2023-01-11 08:39] LABS: Folate 5.9 ng/mL (> or = 4.0); Vitamin B12 211 pg/mL (200-900)
[2023-01-11 08:56] LABS: Free T4 (Free Thyroxine) 0.79 ng/dL (0.71-1.85)
[2023-01-15 18:43] LABS: Histamine Plasma <1.5 ng/mL (< OR = 1.8)
[2023-01-17 21:52] LABS: Intrinsic Factor Antibodies Negative (Negative)
[2023-01-18 16:38] LABS: Parietal Cell Antibody <=20.0 Unit (<=20.0)
== END 2023-01-11 06:49 | disposition home or self-care (01) ==
LOC: HO.LAB 06:48
PROVIDERS: Absent Provider Internal Medicine Gastroenterology; Visit Provider Internal Medicine Geriatric Medicine
DX: R19.7 Diarrhea, unspecified (principal); E53.8 Deficiency of other specified B group vitamins; Z91.018 Allergy to other foods
CPT/HCPCS: 36415; 82607; 82746; 83088; 83516; 83520; 84439; 84443; 86003; 86340

== ENCOUNTER 2023-02-02 08:30 | Outpatient (REF) | payer OTHER, SELFPAY | END 2023-02-02 08:31 | disposition home or self-care (01) | LOC: HO.LNP 08:30 | PROVIDERS: PCP Internal Medicine Geriatric Medicine; Visit Provider Surgery | DX: N76.4 Abscess of vulva (principal) | CPT/HCPCS: 10061; 87070; 87205 ==

== ENCOUNTER 2023-02-02 08:30 | Outpatient (AMB) | payer OTHER, SELFPAY ==
--- NOTE | 2023-02-02 08:37 | A.OFFVIS_ITS ---
Intake Vital Signs 02/02/23 08:41 Height 5 ft 2 in Weight 239 lb BMI 43.7 BP 128/60 Blood Pressure Location Lt brachial Position Standing Pulse 91 Intake Visit Reasons: cyst of groin Intake Note: This patient presents for an assessment for cyst on the genitalia. Patient c/o; reports pain and bleeding, denies draining. Manager Battery Required: No Accompanied by: Self / Same As Patient Allergies bupropion [From WELLBUTRIN] Allergy (Severe, Verified 02/02/23 08:37) HIVES hydrocodone [From VICODIN] Allergy (Severe, Verified 02/02/23 08:37) VOMITING oxycodone [From OXYCONTIN] Allergy (Severe, Verified 02/02/23 08:37) VOMITING, itching tramadol [TRAMADOL] Allergy (Severe, Verified 02/02/23 08:37) VOMITING adhesive tape Allergy (Mild, Verified 02/02/23 08:37) Rash APRICOT Allergy (Severe, Uncoded 02/02/23 08:37) HIVES NARCOTICS Allergy (Severe, Uncoded 02/02/23 08:37) VOMITING Medication List - Last Reconciled 02/02/23 by Jason Jasso MD citalopram 40 mg PO DAILY clindamycin phosphate 1% mL topical BID dextroamphetamine-amphetamine 10 mg 1 tab PO DAILY dextroamphetamine-amphetamine 30 mg ER 1 cap PO QAM levothyroxine 150 mcg PO DAILY naproxen 500 mg PO BID omeprazole 40 mg PO DAILY rifaximin 550 mg PO TID 2 weeks topiramate 50 mg PO BID vitamin B complex (B Complex-Vitamin B12 tablet) 1 tab PO DAILY HPI cyst of groin HPI Details [age] year old female who says she has had swelling and pain on the vulvar area for about 4 days now. This had been worsening. She now says she has severe pain and tenderness. 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 She has no fever or chills. She denies any trauma to the area. 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 Review of Systems Const Denies chills and Denies fever(s) Card Denies chest pain, Denies dyspnea and Denies dyspnea on exertion Resp Denies cough, Denies dyspnea and Denies dyspnea on exertion GI Denies hematochezia and Denies change in bowel habits Denies hematuria Musc Denies back pain and Denies limited range of motion Neuro Denies focal weakness and Denies convulsions Psych Denies depression and Denies mood swings Physical Exam Vital Signs: Last Vital Signs Pulse 91 02/02/23 08:41 BP 128/60 02/02/23 08:41 BMI result Body Mass Index 43.7 Const Other: Obese General: comfortable and no acute distress Orientation/consciousness: patient oriented x3 Neck Neck: Yes no lymphadenopathy Resp Auscultation: clear to auscultation bilaterally Cardio Rhythm: regular rhythm GI Palpation (GI): Soft to palpation, nontender and no guarding Other: Large Right labial swelling with fluctuant mass, very tender Neuro General: patient oriented x3 Office Procedures I&D Drain Details: She was in lithotomy position. The above was prepped and draped. Lidocaine 1% was used for local anesthesia. There was note of a fluctuant mass on the labia majora on the right side. An incision was made using blade 11. Large amounts of pus was drained as soon as the cavity was entered. I probed the cavity with a hemostat to make sure that there were no loculations. The procedure was completed. Cultures were taken. She tolerated procedure well. 20527-Bbteyeit of Skin Abscess, complex All charges added?: Procedure code (CPT) selection complete Assessment & Plan Assessment & Plan (1) Labial abscess: Code(s): N76.4 - Abscess of vulva Plan: I explained to her the technique of I and D of the labial abscess. She understood the procedure as well as the risks, benefits, and alternatives and she had given consent. I and D was done here in the office under local anesthesia. She tolerated procedure well. Large amounts of pus was drained. She will be prescribed antibiotics. Cultures had been taken. I explained to her to take ibuprofen and Tylenol for pain at home. She has to change dressings daily and keep the area clean and dry. Coding Level of Care Code New Pt Level 3 (22775) Diagnoses Labial abscess N76.4 CPT Codes I&D Drain - Drain 2: 22975-Svhtwrvt of Skin Abscess, complex ([id number])
[2023-02-02 08:41] VITALS: BP 128/60; PULSE 91; BMI 43.7
== END 2023-02-02 09:00 | disposition home or self-care (01) ==
PROVIDERS: PCP Internal Medicine Geriatric Medicine; Visit Provider Surgery
DX: N76.4 Abscess of vulva (principal)
CPT/HCPCS: 10061; 99203

== ENCOUNTER 2023-02-16 09:56 | Day surgery (SDC) | payer OTHER, SELFPAY ==
[2023-02-14 10:45] VITALS: BMI 44.4
--- NOTE | 2023-02-15 12:56 | HO.ANESPROP2 ---
Documented by User: Brandie Wood NP 02/15/23 12:57 HPI - Anesthesia Eval Consult details Narrative: 48yo F for Upper Endoscopy PMFSH Active Problems Active Problems: All Active Problems (Updated 02/14/23 @ 10:48 by Stacy Hood RN) Abdominal pain (Acute) Lumbar radiculopathy (Acute) Coccyx pain (Acute) Anemia (Acute) Peroneal tendonitis of right lower leg (Acute) Achilles tendinitis, right leg (Acute) B12 deficiency (Acute) Food allergy (Acute) Labial abscess (Acute) Past Medical History Medical History Anemia B12 deficiency History of postoperative nausea and vomiting Hx of pilonidal cyst Labial abscess Lumbar radiculopathy Family History Family History Brother HTN (hypertension) Brother HTN (hypertension) Father HTN (hypertension) Surgical History Surgical History History of esophagogastroduodenoscopy (EGD) History of hand surgery Hx of abdominoplasty Hx of colonoscopy Hx of elbow surgery Hx of hysterectomy Hx of shoulder surgery Social History Social History Patient Tobacco Use Status: Former Tobacco user Tobacco use type: Cigarette e-Cigarette/Vaping Use: Currently Using Use of substances other than those prescribed or required for medical reasons: No Have you been hit, kicked, punched, or otherwise hurt by someone within the past year? 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 Allergies Allergy/AdvReac Type Severity Reaction Status Date / Time bupropion [From WELLBUTRIN] Allergy Severe HIVES Verified 02/02/23 08:37 hydrocodone [From VICODIN] Allergy Severe VOMITING Verified 02/02/23 08:37 oxycodone [From OXYCONTIN] Allergy Severe VOMITING, Verified 02/02/23 08:37 itching tramadol [TRAMADOL] Allergy Severe VOMITING Verified 02/02/23 08:37 adhesive tape Allergy Mild Rash Verified 02/02/23 08:37 APRICOT Allergy Severe HIVES Uncoded 02/02/23 08:37 NARCOTICS Allergy Severe VOMITING Uncoded 02/02/23 08:37 Home Medications Medication Instructions Recorded Confirmed Last Taken Type citalopram 40 mg tablet 40 mg PO DAILY 10/19/20 02/14/23 Unknown History dextroamphetamine-amphetamine 10 1 tab PO DAILY 10/19/20 02/14/23 Unknown History mg tablet dextroamphetamine-amphetamine ER 1 cap PO QAM 10/19/20 02/14/23 Unknown History 30 mg 24hr capsule,extend release levothyroxine 150 mcg tablet 150 mcg PO DAILY 10/19/20 02/14/23 Unknown History naproxen 500 mg tablet 500 mg PO BID 10/19/20 02/14/23 Unknown History omeprazole 40 mg capsule,delayed 40 mg PO DAILY 10/19/20 02/14/23 Unknown History release clindamycin phosphate 1 % topical 1 appl topical BID 08/19/22 02/14/23 Unknown History solution topiramate 25 mg tablet 50 mg PO BID 02/02/23 02/14/23 Unknown History Exam Exam Date and Time: February 15, 2023 1256 Height,Weight and Vital Signs: Height 5 ft 2 in Weight 110.223 kg Assessment and Plan Assessment Anesthesia Assessment: Chart Reviewed Documented by User: Adali Contreras MD 02/16/23 10:24 [facility] Past Medical History Medical History Anemia B12 deficiency History of postoperative nausea and vomiting Hx of pilonidal cyst Labial abscess Lumbar radiculopathy Family History Family History Brother HTN (hypertension) Brother HTN (hypertension) Father HTN (hypertension) Family history of problems with anesthesia: No Surgical History Surgical History History of esophagogastroduodenoscopy (EGD) History of hand surgery Hx of abdominoplasty Hx of colonoscopy Hx of elbow surgery Hx of hysterectomy Hx of shoulder surgery History of Problems with Anesthesia: No Social History Social History Patient Tobacco Use Status: Former Tobacco user Tobacco use type: Cigarette e-Cigarette/Vaping Use: Currently Using Use of substances other than those prescribed or required for medical reasons: No Have you been hit, kicked, punched, or otherwise hurt by someone within the past year? 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 Allergies Allergy/AdvReac Type Severity Reaction Status Date / Time bupropion [From WELLBUTRIN] Allergy Severe HIVES Verified 02/02/23 08:37 hydrocodone [From VICODIN] Allergy Severe VOMITING Verified 02/02/23 08:37 oxycodone [From OXYCONTIN] Allergy Severe VOMITING, Verified 02/02/23 08:37 itching tramadol [TRAMADOL] Allergy Severe VOMITING Verified 02/02/23 08:37 adhesive tape Allergy Mild Rash Verified 02/02/23 08:37 APRICOT Allergy Severe HIVES Uncoded 02/02/23 08:37 NARCOTICS Allergy Severe VOMITING Uncoded 02/02/23 08:37 Home Medications Medication Instructions Recorded Confirmed Last Taken Type citalopram 40 mg tablet 40 mg PO DAILY 10/19/20 02/14/23 Unknown History dextroamphetamine-amphetamine 10 1 tab PO DAILY 10/19/20 02/14/23 Unknown History mg tablet dextroamphetamine-amphetamine ER 1 cap PO QAM 10/19/20 02/14/23 Unknown History 30 mg 24hr capsule,extend release levothyroxine 150 mcg tablet 150 mcg PO DAILY 10/19/20 02/14/23 Unknown History naproxen 500 mg tablet 500 mg PO BID 10/19/20 02/14/23 Unknown History omeprazole 40 mg capsule,delayed 40 mg PO DAILY 10/19/20 02/14/23 Unknown History release clindamycin phosphate 1 % topical 1 appl topical BID 08/19/22 02/14/23 Unknown History solution topiramate 25 mg tablet 50 mg PO BID 02/02/23 02/14/23 Unknown History Exam Airway Mallampati Class: II TM Dist: >3cm Neck ROM: Full Heart: rrr Lungs: cta Assessment and Plan Final Anesthetic Review Family History of Problems with Anesthesia: No History of Problems with Anesthesia: No ASA Class: II Final Preanesthetic Review: No Changes in Pt Med Stat, Meds/Allgs Chart Reviewed, Consent Obtained/Reviewed and Anes Risks/Benef Reviewed Patient Risk: Low Procedure Risk: Low Anesthetic Plan Anesthetic Plan: MAC: Disposition: Standard PACU
[2023-02-16 10:21] VITALS: BP 125/80; PULSE 79; RESP 18; TEMP 36.3; O2SAT 98; BMI 43.7
[2023-02-16 10:42] VITALS: BP 125/80; PULSE 79; RESP 18; TEMP 36.3; O2SAT 98
[2023-02-16] MEDS: Lactated Ringers 1,000 ML 100 ML IVCONT (10:54)
--- NOTE | 2023-02-16 11:12 | MHC.SHP ---
Pre-Procedural Eval Section A Date of Service: 02/16/23 Section B Chief Complaint: Unspecified abdominal pain,anemia, Relevant Family History (Specify if Yes): No Relevant Social History: Other (specify) (vaping) Present Medications: see Short Stay Collaborative assessment Medical History: Significant History (Anemia B12 deficiency History of postoperative nausea and vomiting Hx of pilonidal cyst Labial abscess Lumbar radiculopathy) History of Previous Operations: Relevant previous surgery/procedure and date(s) (History of esophagogastroduodenoscopy (EGD) History of hand surgery Hx of abdominoplasty Hx of colonoscopy Hx of elbow surgery Hx of hysterectomy Hx of shoulder surgery) Allergies: Allergies Allergy/AdvReac Type Severity Reaction Status Date / Time bupropion [From WELLBUTRIN] Allergy Severe HIVES Verified 02/02/23 08:37 hydrocodone [From VICODIN] Allergy Severe VOMITING Verified 02/02/23 08:37 oxycodone [From OXYCONTIN] Allergy Severe VOMITING, Verified 02/02/23 08:37 itching tramadol [TRAMADOL] Allergy Severe VOMITING Verified 02/02/23 08:37 adhesive tape Allergy Mild Rash Verified 02/02/23 08:37 APRICOT Allergy Severe HIVES Uncoded 02/02/23 08:37 NARCOTICS Allergy Severe VOMITING Uncoded 02/02/23 08:37 Review of Systems Sugical H&P ROS: Negative: Constitution, Cardiovascular, Respiratory, Neurological, Psychiatric, Hem-Onc, Allergic/Immunologic, Gastrointestinal, Genitourinary, Musculoskeletal, Integumentary, Endocrine and Eyes/Ears/Nose/Throat Exam Surgical H&P Exam: Normal: HEENT, Normal: Heart, Normal: Lungs, Normal: Extremities, Normal: Abdomen, Normal: Skin and Normal: Neurological Plan Diagnosis/Plan: Unchanged I have reviewed the history and physical and performed a pertinent physical examination on my patient. No changes have occurred unless specified. Time Spent With Patient Time: Total time managing care of this patient today ____ minutes.
--- NOTE | 2023-02-16 11:45 | W.PM.OPN ---
Operative Note Operative Note Date of Service: 02/16/23 Narrative: Procedure Description: EGD Indication: abdominal pain Anesthesia: MAC FLEXIBLE TRANSORAL UPPER GASTROINTESTINAL ENDOSCOPY UPPER ENDOSCOPY Consent: Indications for the procedure and potential complications of bleeding, perforation, reaction to medications and missed diagnosis were discussed with the patient and informed consent was obtained. Instrument: Olympus GIF H 190 J mid size upper endoscope Monitoring: Vital signs and clinical assessment, continuous EKG monitoring, Pulse oximetry, Carbon Dioxide monitoring and blood pressure monitoring were done throughout the procedure. Procedure: The patient was placed in the left lateral decubitis position and pre-procedure medications were administered and a bite block was placed. The endoscope was inserted into the mouth and advanced under direct vision to the third part of duodenum. A careful inspection was made as the upper endoscope was withdrawn including a retroflexed examination of the proximal stomach; Findings and interventions are described below. Findings: Larynx:normal Esophagus: GE junction at 38 cm, diaphragm hiatus at 38 cm, mild congestion at GEJ, bx taken from here and distal esophagus Stomach: Mild patchy gastric erythema. Biopsies were obtained. Grade 2 flap valve on retroflexed examination of the cardia. minimal gastric movement noted. Duodenum: Normal bulb and descending duodenum, bx taken Intervention: Biopsies as noted above Impression/Findings: mild gastritis mild esophagitis possible gastroparesis PLAN: Await bx GES to r/o gastroparesis
[2023-02-16 11:53] VITALS: BP 130/62; PULSE 90; RESP 16; TEMP 36.6; O2SAT 97
[2023-02-16 12:28] VITALS: BP 114/67; PULSE 69; RESP 18; TEMP 36.2; O2SAT 98
== END 2023-02-16 12:59 | disposition home or self-care (01) ==
PROVIDERS: PCP Internal Medicine Geriatric Medicine; Visit Provider Internal Medicine Gastroenterology
PROC: 0DJ08ZZ Inspection of Upper Intestinal Tract, Via Natural or Artificial Opening Endoscopic (ICD-10-PCS; CPT 43235; principal; 2023-02-16 11:40)
DX: D64.9 Anemia, unspecified (principal); R10.9 Unspecified abdominal pain; K20.80 Other esophagitis without bleeding; K29.70 Gastritis, unspecified, without bleeding; K44.9 Diaphragmatic hernia without obstruction or gangrene; E53.8 Deficiency of other specified B group vitamins; F17.290 Nicotine dependence, other tobacco product, uncomplicated; Z98.890 Other specified postprocedural states; Z88.5 Allergy status to narcotic agent; Z88.9 Allergy status to unspecified drugs, medicaments and biological substances; L23.1 Allergic contact dermatitis due to adhesives
CPT/HCPCS: 43239; 88305; 88342

== ENCOUNTER → 2023-02-16 09:56 | Outpatient (BNV) | payer OTHER, SELFPAY | PROVIDERS: PCP Internal Medicine Geriatric Medicine; Visit Provider Internal Medicine Gastroenterology | DX: R10.9 Unspecified abdominal pain (principal); K29.70 Gastritis, unspecified, without bleeding; K20.90 Esophagitis, unspecified without bleeding | CPT/HCPCS: 43239 ==

== ENCOUNTER 2023-03-03 09:33 | Outpatient (AMB) | payer OTHER, SELFPAY ==
--- NOTE | 2023-03-03 09:35 | A.OFFVIS_ITS ---
Intake Vital Signs 03/03/23 09:40 Weight 330 lb Intake Visit Reasons: S/p egd Intake Note: Patient is present for Procedure follow up States no change in medication Patient states that she is doing well after the procedure. States she feels the same Allergies bupropion [From WELLBUTRIN] Allergy (Severe, Verified 03/03/23 09:40) HIVES hydrocodone [From VICODIN] Allergy (Severe, Verified 03/03/23 09:40) VOMITING oxycodone [From OXYCONTIN] Allergy (Severe, Verified 03/03/23 09:40) VOMITING, itching tramadol [TRAMADOL] Allergy (Severe, Verified 03/03/23 09:40) VOMITING adhesive tape Allergy (Mild, Verified 03/03/23 09:40) Rash APRICOT Allergy (Severe, Uncoded 03/03/23 09:40) HIVES NARCOTICS Allergy (Severe, Uncoded 03/03/23 09:40) VOMITING HPI S/p egd HPI Details 48 yr old f here for f/u RECAP: she had been seeing September for IBS and constipation she feels like she digests food slowly she has a lot of bloating and gas for about 1 year--if this happens she gets pain in sides and epigastric stool is soft, and she goes daily she has GERD and takes omeprazole daily which helps a lot she drinks a lot of water she does not take alcohol, uses vape colonoscopy 2018-- hyperplastic polyps and diverticulosis EGD >10 yrs ago--normal per her recall Labs: 08/2022-- HGB 12 g/dl, b12 --200, ferritin- 42, AST/ALT midlly elevated US 08/2022--- fatty liver EGD 01/2023: Impression/Findings: mild gastritis mild esophagitis possible gastroparesis Path:mild inflammation at GEJ INTERIM: reviewed RAST pos for cows milk, eggs--takes eggs daily she has GES pending no blood in stool no nausea or vomiting no dysphagia second course of rifaximin didn't help as well as first course she has been compliant with b12 EXAM: GENERAL: The patient is well developed and nontoxic. VITAL SIGNS:see workflow HEENT: Nonicteric sclerae, PERRLA, EOMI. Oropharynx clear. Moist mucous membranes. Conjunctivae appear well perfused. No thyroid mass. CHEST: Chest wall is nontender. HEART: Regular rate and rhythm without murmurs. LUNGS: Clear to auscultation bilaterally. ABDOMEN: Soft, positive bowel sounds, nontender, no organomegaly.no flank tenderness SKIN: No rash, no excessive bruising, petechiae, or purpura. NEUROLOGIC: Cranial nerves II-XII intact without motor/sensory deficit. Psych: normal affect A/P: 1/ Bloating and gas -- maybe gastropares is, GES pending 2/ B12 defc, poss food allergy as well-- pos RAST for eggs and milk PLAN: 1/ recheck labs, b12 and abs 2/ avoid eggs and milk (allergy to prote ins that are heat resistant) 3/ GES pending 4/ f/u with PCP for thyroid PFSH Medical History Anemia B12 deficiency History of postoperative nausea and vomiting Hx of pilonidal cyst Labial abscess Lumbar radiculopathy Surgical History History of esophagogastroduodenoscopy (EGD) History of hand surgery Hx of abdominoplasty Hx of colonoscopy Hx of elbow surgery Hx of hysterectomy Hx of shoulder surgery Family History Brother HTN (hypertension) Brother HTN (hypertension) Father HTN (hypertension) Social History Patient Tobacco Use Status: Former Tobacco user Tobacco use type: Cigarette e-Cigarette/Vaping Use: Currently Using 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 Assessment & Plan Assessment & Plan (1) B12 deficiency: Code(s): E53.8 - Deficiency of other specified B group vitamins (2) Food allergy: Code(s): Z91.018 - Allergy to other foods Orders: Orders Vitamin B12 and Folate Today E53.8 - Deficiency of other specified B group vitamins, Z91.018 - Allergy to other foods Intrinsic Factor Antibodies Today E53.8 - Deficiency of other specified B group vitamins, Z91.018 - Allergy to other foods Parietal Cell Antibody Today E53.8 - Deficiency of other specified B group vitamins, Z91.018 - Allergy to other foods Coding Level of Care Code Est Pt Level 3 (38279) Diagnoses B12 deficiency E53.8 Food allergy Z91.018
== END 2023-03-03 10:54 | disposition home or self-care (01) ==
PROVIDERS: PCP Internal Medicine Geriatric Medicine; Visit Provider Internal Medicine Gastroenterology
DX: E53.8 Deficiency of other specified B group vitamins (principal); Z91.018 Allergy to other foods
CPT/HCPCS: 99213

== ENCOUNTER → 2023-03-03 09:33 | Outpatient (BNVA) | payer OTHER, SELFPAY | PROVIDERS: PCP Internal Medicine Geriatric Medicine; Visit Provider Internal Medicine Gastroenterology ==

== ENCOUNTER → 2023-03-09 07:52 | Outpatient (REF) | payer OTHER, SELFPAY ==
--- NOTE | ~2023-03-09 | NM_ITS ---
EXAMINATION: RADIONUCLIDE SOLID FOOD GASTRIC EMPTYING 4-HOUR STUDY CLINICAL INFORMATION: Early satiety. COMPARISON: No previous gastric emptying study is available for comparison. TECHNIQUE: A standard meal consisting of 4 oz of Egg Beaters brand equivalent tagged with 1.0 mCi Tc-99m Sulfur Colloid, 8 oz water and 2 slices of toast with jelly was administered orally to the patient. Images were obtained using a dual head gamma camera in the anterior and posterior projections over of the stomach immediately post ingestion and at hourly intervals up to 4 hours post ingestion. The anterior and posterior counts at each time interval were averaged using the geometric mean and expressed as percentage of the immediate post ingestion counts. FINDINGS: There is good visualization of activity in the stomach immediately post ingestion. As the study progresses, there is good clearance of activity from the stomach and visualization of progressively increasing small bowel activity. By the end of the study, there is almost no retention noted in the stomach. Retention in the stomach at each time interval was: 1 hour 71% (normal 37%-90%) 2 hours 20% (normal 30%-60%) 3 hours 6% 4 hours 5% (normal 0%-10%) NM/NM gastric emptying study IMPRESSION: Normal 4-hour solid food gastric emptying study.
== END ==
LOC: HO.NUCMED 07:52
PROVIDERS: PCP Internal Medicine Geriatric Medicine; Visit Provider Internal Medicine Gastroenterology
DX: R68.81 Early satiety (principal)
CPT/HCPCS: 78264; A9541

== ENCOUNTER 2023-05-25 10:35 | Emergency (ER) | payer OTHER, SELFPAY ==
[2023-05-25 10:44] VITALS: BP 134/80; PULSE 94; RESP 18; TEMP 36.2; O2SAT 98; BMI 41.5
--- NOTE | 2023-05-25 10:55 | ED_ITS ---
HPI - General Adult General Chief complaint: Upper Respiratory Symptoms Stated complaint: facial numbness Time Seen by Provider: 05/25/23 11:27 Source: patient and RN notes reviewed Mode of arrival: ambulatory Limitations: no limitations History of Present Illness HPI narrative: This is a 48-year-old female with a history of depression, anxiety, hypothyroidism, GERD, who presents emergency department with complaints of ongoing subjective fevers, chills, headache, cough, sore throat x1 week. Patient also endorsing intermittent headaches. She states that since 9:00 a.m. this morning she has had some numbness in her face. Denies any difficulty swallowing or breathing. No tingling into her tongue or tongue swelling. She has been taking DayQuil and NyQuil for her symptoms which has provided her with some relief. She denies any chest pain, shortness of breath, weakness. Denies any sick contacts. No other complaints or concerns at this time. MD complaint: Headache, sore throat, fatigue Onset (ago): week(s) Radiation: non-radiation Pain Consistency: constant Relieving factors: none Exacerbating factors: none Associated symptoms: cough, fever/chills, headaches and malaise Treatments prior to arrival: none Related Data Home Medications Medication Instructions Recorded Confirmed citalopram 40 mg tablet 40 mg PO DAILY 10/19/20 02/14/23 dextroamphetamine-amphetamine 10 1 tab PO DAILY 10/19/20 02/14/23 mg tablet dextroamphetamine-amphetamine ER 1 cap PO QAM 10/19/20 02/14/23 30 mg 24hr capsule,extend release levothyroxine 150 mcg tablet 150 mcg PO DAILY 10/19/20 02/14/23 naproxen 500 mg tablet 500 mg PO BID 10/19/20 02/14/23 omeprazole 40 mg capsule,delayed 40 mg PO DAILY 10/19/20 02/14/23 release clindamycin phosphate 1 % topical 1 appl topical BID 08/19/22 02/14/23 solution topiramate 25 mg tablet 50 mg PO BID 02/02/23 02/14/23 Previous Rx's Medication Instructions Recorded vitamin B complex (B 1 tab PO DAILY #90 tabs 12/09/22 Complex-Vitamin B12 tablet) Allergies Allergy/AdvReac Type Severity Reaction Status Date / Time bupropion [From WELLBUTRIN] Allergy Severe HIVES Verified 05/25/23 10:44 hydrocodone [From VICODIN] Allergy Severe VOMITING Verified 05/25/23 10:44 oxycodone [From OXYCONTIN] Allergy Severe VOMITING, Verified 05/25/23 10:44 itching tramadol [TRAMADOL] Allergy Severe VOMITING Verified 05/25/23 10:44 egg Allergy Intermediate Stomach Verified 05/25/23 10:44 Upset adhesive tape Allergy Mild Rash Verified 05/25/23 10:44 APRICOT Allergy Severe HIVES Uncoded 03/03/23 09:40 NARCOTICS Allergy Severe VOMITING Uncoded 03/03/23 09:40 Review of Systems Review of Systems: Yes all other systems are reviewed and are negative Constitutional: Constitutional: Reports as per HPI ENT: Reports Normal hearing present Neurologic: Reports Normal hearing present [facility] Past Medical History Attestation statement: The following information was validated with the patient. Medical History History of postoperative nausea and vomiting B12 deficiency Lumbar radiculopathy Anemia Labial abscess Hx of pilonidal cyst Surgical History Hx of elbow surgery History of hand surgery Hx of hysterectomy Hx of shoulder surgery Hx of abdominoplasty Hx of colonoscopy History of esophagogastroduodenoscopy (EGD) Family History Family History Brother HTN (hypertension) Brother HTN (hypertension) Father HTN (hypertension) Social History Social History Patient Tobacco Use Status: Former Tobacco user Tobacco use type: Cigarette Smoked in Last 30 Days: Yes e-Cigarette/Vaping Use: Currently Using Use of substances other than those prescribed or required for medical reasons: No Advance Directives: No Advance Directives Information Provided: Yes Patient : No 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 Vital Signs: Vital Signs - 24 hr 05/25/23 10:44 05/25/23 12:40 05/25/23 12:46 Temperature 97.1 F Pulse Rate 94 84 77 Respiratory Rate 18 Blood Pressure 134/80 113/77 124/68 Pulse Oximetry 98 Oxygen Delivery Method Room Air 05/25/23 12:46 05/25/23 12:47 Temperature Pulse Rate 84 94 Respiratory Rate Blood Pressure 123/80 119/78 Pulse Oximetry Oxygen Delivery Method BMI result Body Mass Index 41.5 Const General: cooperative, comfortable and no acute distress Orientation/consciousness: patient oriented x3 Limitations: no limitations HENMT Head: Yes normal to inspection, Yes normocephalic and Yes atraumatic Ears: hearing grossly normal bilaterally General nose exam: Normal external nose present Face and sinus: Yes normal facial exam Mouth: Normal oral and palatal mucosa present, oropharynx normal and moist mucous membranes Throat: Yes posterior oropharynx normal Eyes General: appearance normal, both eyes and all related structures Eyelids: Yes eyelids normal Conjunctivae: conjunctivae normal Sclerae: sclerae normal Pupils: Equal, round and reactive pupils present EOM: EOMs intact bilaterally Neck Neck: Yes normal visual inspection, Yes full ROM and Yes no lymphadenopathy Lymphatic: no lymphadenopathy noted Chest Chest palpation & inspection: normal inspection of the chest Resp Effort & Inspection: normal respiratory effort and able to speak in complete sentences Auscultation: clear to auscultation bilaterally, no crackles, no rales, no rhonchi and no wheezes Cardio Rate: regular rate Rhythm: regular rhythm Heart sounds: S1 normal heart sound present and S2 normal heart sound present GI Inspection: Yes normal to inspection Skin General skin exam: no rashes or lesions noted Trauma: no lacerations or abrasions Wounds: no wounds Neuro General: patient oriented x3 and moves all extremities Cranial nerves: Yes CN's II-XII intact bilaterally, Yes Facial sensation intact/muscles of mastication intact, Yes Equal, round and reactive pupils present, Yes Nystagmus not present, Yes Normal facial strength present, Yes Midline tongue present, Yes Symmetric palate elevation present, Yes Normal hearing present, Yes Ability to bilaterally rotate head present and Yes Ability to bilaterally elevate shoulders present Cognition (Neuro): normal cognition Gait exam (Neuro): Normal gait present Motor exam (neuro): 5/5 motor strength present throughout Sensory Exam: Normal double simultaneous stimulation for sensation Coordination: [id number] test normal and aokh-sl-lwoz test normal Romberg Test: Negative Extrem General: Yes normal to inspection Right upper extremity: normal to inspection Left upper extremity: normal to inspection Right lower extremity: normal to inspection Left lower extremity: normal to inspection Medical Decision Making Medical Decision Making MDM Narrative: This is a 48-year-old female presenting to the emergency department for evaluation of fevers, headache, chills, cough, sore throat the last week. Patient has been taking [id number] cold medicine with some relief. She has had some numbness to bilateral facial cheeks since 9:00 a.m. this morning. Patient is fully neurologically intact without any neuro deficits. Given that this is bilateral and not unilateral, this is reassuring and may be attributed to anxiety or viral process. Patient has no facial droop, and equal strength. I discussed these findings with my attending physician, . agrees that close monitoring symptoms is warranted however does not need further interventions given patient is fully neurologically intact with no facial droop. Sanchez's palsy was also considered however no facial droop was seen on exam. Patient does not spend any time outdoors, no recent tick bites or rashes seen. Discussed workup with patient. She understands and agrees with plan. Orthostatic vital signs were negative. Patient given return precautions. Patient stable for discharge Differential Diagnosis Differential Diagnoses: The differential diagnosis associated with the presentation includes Influenza, COVID, viral syndrome, sinusitis Lab Data MDM Lab Attestation statement: I reviewed the patient's lab results. Influenza a positive Labs: Lab Results 05/25/23 Range/Units 11:16 Influenza Type A (PCR) POSITIVE A (Negative) Influenza Type B (PCR) NEGATIVE (Negative) RSV RNA Qual (PCR) NEGATIVE (Negative) SARS-CoV-2 RNA (RT-PCR) NEGATIVE (Negative) Discharge Plan Discharge Clinical Impression: Influenza A Patient Disposition: Home, Self-Care Instructions: Influenza (ED) Additional Instructions: You tested positive for flu A today. This is a virus that does not require treatment. You can treat symptomatically with [id number] cold and cough medicines. Take Tylenol and Motrin as needed for pain and fevers. Drink plenty of fluids get plenty of rest. If any new or worsening symptoms occur including but not limited to worsening headache, facial droop, weakness, chest pain, shortness of breath, please return for re-evaluation. Prescriptions: No Action dextroamphetamine-amphetamine 30 mg capsule,extended release 24hr 1 cap PO QAM levothyroxine 150 mcg tablet 150 mcg PO DAILY dextroamphetamine-amphetamine 10 mg tablet 1 tab PO DAILY citalopram 40 mg tablet 40 mg PO DAILY omeprazole 40 mg capsule,delayed release(DR/EC) 40 mg PO DAILY naproxen 500 mg tablet 500 mg PO BID clindamycin phosphate 1 % solution 1 appl topical BID vitamin B complex [B Complex-Vitamin B12] Tablet 1 tab PO DAILY Qty: 90 3RF topiramate 25 mg tablet 50 mg PO BID Interventions: ED Discharge Assessment Last Done: 05/25/23 12:56 Discharge Date/Time: 05/25/23 12:59
--- NOTE | 2023-05-25 11:12 | PC.NURSE ---
today with numbness and tingling under both eyes down to chin. history of sore throat, cough, now resolved taking nyquil and day quil
[2023-05-25 12:17] LABS: Influenza A PCR POSITIVE (Negative); Influenza B PCR NEGATIVE (Negative); Resp Syncy Virus RNA Qual PCR NEGATIVE (Negative); SARS COV2 PCR INHOUSE NEGATIVE (Negative)
[2023-05-25 12:40] VITALS: BP 113/77; PULSE 84
[2023-05-25 12:46] VITALS: BP 123/80; BP 124/68; PULSE 77; PULSE 84
[2023-05-25 12:47] VITALS: BP 119/78; PULSE 94
== END 2023-05-25 12:59 | disposition home or self-care (01) ==
PROVIDERS: Emergency Provider Emergency Medicine Emergency Medical Services; PCP Internal Medicine Geriatric Medicine
DX: J10.1 Influenza due to other identified influenza virus with other respiratory manifestations (principal); Z20.822 Contact with and (suspected) exposure to COVID-19; Z20.828 Contact with and (suspected) exposure to other viral communicable diseases
CPT/HCPCS: 0241U; 99283; 99284

== ENCOUNTER 2023-08-08 06:17 | Outpatient (REF) | payer OTHER, SELFPAY ==
[2023-08-08 08:17] LABS: TSH reflex Free T4 8.19 uIU/mL (0.32-4.0)
[2023-08-08 08:55] LABS: Free T4 (Free Thyroxine) 0.74 ng/dL (0.71-1.85)
== END 2023-08-08 06:18 | disposition home or self-care (01) ==
LOC: CF 06:17
PROVIDERS: PCP Internal Medicine Geriatric Medicine; Visit Provider Internal Medicine Geriatric Medicine
DX: E03.9 Hypothyroidism, unspecified (principal)
CPT/HCPCS: 36415; 84439; 84443

== ENCOUNTER → 2023-11-24 15:15 | Outpatient (BNV) | payer OTHER, SELFPAY | PROVIDERS: Visit Provider Clinical Nurse Specialist Psychiatric/Mental Health | DX: F33.2 Major depressive disorder, recurrent severe without psychotic features (principal); F90.0 Attention-deficit hyperactivity disorder, predominantly inattentive type | CPT/HCPCS: 99204 ==

== ENCOUNTER → 2023-12-20 12:00 | Outpatient (BNV) | payer OTHER, SELFPAY | PROVIDERS: Visit Provider Psychiatry & Neurology Psychiatry | DX: F33.2 Major depressive disorder, recurrent severe without psychotic features (principal) | CPT/HCPCS: 90867; 90868 ==

== ENCOUNTER 2024-02-27 13:00 | Outpatient (RCR) | payer OTHER, SELFPAY ==
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
--- NOTE | 2023-12-06 12:13 | HO.TMSDAILY2 ---
TMS Daily Progress Note Daily TMS Progress Note Date of Service: 12/20/23 Week #: 1 Treatment #(07-25): 1 PHQ-9 Pre-Treatment (07-22): 20 PHQ-9 Most Recent (07-22): 17 Reviewed: TMS Mapping/Re-mapping completed Verification: I have reviewed the TMS Director Hris Note and agree with the contents. The patient remains a candidate to continue TMS treatment per protocol. Assessment and Plan (1) Major depressive disorder, recurrent severe without psychotic features: Status: Acute Plan Initial mapping completed much more success with Topamax being discontinued patient remains quite depressed good candidate for TMS initial treatment tolerated no adverse effects noted
--- NOTE | 2024-02-14 13:59 | P.PNPS_ITS ---
TMS Daily Progress Note Daily TMS Progress Note Date of Service: 12/21/23 Week #: 1 Treatment #(07-25): 2 PHQ-9 Pre-Treatment (07-22): 20 PHQ-9 Most Recent (07-22): 17 Reviewed: TMS Tech Note Reviewed Verification: I have reviewed the TMS Community Engagement Coordinator Note and agree with the contents. The patient remains a candidate to continue TMS treatment per protocol. Assessment and Plan (1) Major depressive disorder, recurrent severe without psychotic features: Status: Acute Plan MT increase to 80% patient tolerating treatment
--- NOTE | 2024-02-14 14:02 | P.PNPS_ITS ---
TMS Daily Progress Note Daily TMS Progress Note Date of Service: 12/22/23 Week #: 1 Treatment #(07-25): 3 PHQ-9 Pre-Treatment (07-22): 20 PHQ-9 Most Recent (07-22): 17 Reviewed: TMS Tech Note Reviewed Verification: I have reviewed the TMS Division Chair Note and agree with the contents. The patient remains a candidate to continue TMS treatment per protocol. Assessment and Plan (1) Major depressive disorder, recurrent severe without psychotic features: Status: Acute Plan MT at 80% patient tolerating treatment some soreness
--- NOTE | 2024-02-14 14:03 | HO.TMSDAILY2 ---
TMS Daily Progress Note Daily TMS Progress Note Date of Service: 12/25/23 Week #: 1 Treatment #(07-25): 4 PHQ-9 Pre-Treatment (07-22): 20 PHQ-9 Most Recent (07-22): 17 Reviewed: TMS Tech Note Reviewed Verification: I have reviewed the TMS Strike Warfare/Missile Systems Officer Note and agree with the contents. The patient remains a candidate to continue TMS treatment per protocol. Assessment and Plan (1) Major depressive disorder, recurrent severe without psychotic features: Status: Acute Plan MT inc 90 % some discomfort patient some soreness
--- NOTE | 2024-02-14 14:05 | P.PNPS_ITS ---
TMS Daily Progress Note Daily TMS Progress Note Date of Service: 12/26/23 Week #: 1 Treatment #(07-25): 5 PHQ-9 Pre-Treatment (07-22): 20 PHQ-9 Most Recent (07-22): 17 Reviewed: TMS Tech Note Reviewed Verification: I have reviewed the TMS Banking Consultant Note and agree with the contents. The patient remains a candidate to continue TMS treatment per protocol. Assessment and Plan (1) Major depressive disorder, recurrent severe without psychotic features: Status: Acute Plan Patient with relatively high MT 1.31 tolerated 90% threshold feeling okay some discomfort
--- NOTE | 2024-02-14 14:07 | P.PNPS_ITS ---
TMS Daily Progress Note Daily TMS Progress Note Date of Service: 12/27/23 Week #: 2 Treatment #(07-25): 6 PHQ-9 Pre-Treatment (07-22): 20 PHQ-9 Most Recent (07-22): 17 Reviewed: TMS Tech Note Reviewed Verification: I have reviewed the TMS Senior Director Of Strategy Note and agree with the contents. The patient remains a candidate to continue TMS treatment per protocol. Assessment and Plan (1) Major depressive disorder, recurrent severe without psychotic features: Status: Acute Plan Patient with relatively high MT 1.31 tolerated 95% threshold feeling okay some discomfort has chronic insomnia
--- NOTE | 2024-02-14 14:09 | HO.TMSDAILY2 ---
TMS Daily Progress Note Daily TMS Progress Note Date of Service: 12/29/23 Week #: 2 Treatment #(07-25): 7 PHQ-9 Pre-Treatment (07-22): 20 PHQ-9 Most Recent (07-22): 17 Reviewed: TMS Tech Note Reviewed Verification: I have reviewed the TMS Can Filling And Closing Machine Tender Note and agree with the contents. The patient remains a candidate to continue TMS treatment per protocol. Assessment and Plan (1) Major depressive disorder, recurrent severe without psychotic features: Status: Acute Plan Patient with relatively high MT 1.31 tolerated 100% threshold feeling okay some discomfort discomfort noted during treatment under the magnet when pulsing we have reviewed different strategies
--- NOTE | 2024-02-14 14:11 | P.PNPS_ITS ---
TMS Daily Progress Note Daily TMS Progress Note Date of Service: 01/01/24 Week #: 2 Treatment #(07-25): 8 PHQ-9 Pre-Treatment (07-22): 20 PHQ-9 Most Recent (07-22): 17 Reviewed: TMS Tech Note Reviewed Verification: I have reviewed the TMS Professor Of Biochemistry Note and agree with the contents. The patient remains a candidate to continue TMS treatment per protocol. Assessment and Plan (1) Major depressive disorder, recurrent severe without psychotic features: Status: Acute Plan Continue plan of care empty increased to 105 % may start on low-dose trazodone
--- NOTE | 2024-02-14 14:24 | P.PNPS_ITS ---
TMS Daily Progress Note Daily TMS Progress Note Date of Service: 01/02/24 Week #: 2 Treatment #(07-25): 9 PHQ-9 Pre-Treatment (07-22): 20 PHQ-9 Most Recent (07-22): 17 Reviewed: TMS Tech Note Reviewed Verification: I have reviewed the TMS It Infrastructure Manager Note and agree with the contents. The patient remains a candidate to continue TMS treatment per protocol. Assessment and Plan (1) Major depressive disorder, recurrent severe without psychotic features: Status: Acute Plan Continue plan of care patient stated 105% today some difficulty with side effects during treatment
--- NOTE | 2024-02-14 14:25 | P.PNPS_ITS ---
TMS Daily Progress Note Daily TMS Progress Note Date of Service: 01/04/24 Week #: 2 Treatment #(07-25): 10 PHQ-9 Pre-Treatment (07-22): 20 PHQ-9 Most Recent (07-22): 10 Reviewed: TMS Tech Note Reviewed Verification: I have reviewed the TMS Research Kennel Supervisor Note and agree with the contents. The patient remains a candidate to continue TMS treatment per protocol. Assessment and Plan (1) Major depressive disorder, recurrent severe without psychotic features: Status: Acute Plan Continue at 105% MT due to discomfort patient has shown a treatment response for both PHQ-9 in GED
--- NOTE | 2024-02-14 14:28 | P.PNPS_ITS ---
TMS Daily Progress Note Daily TMS Progress Note Date of Service: 01/05/24 Week #: 3 Treatment #(07-25): 11 PHQ-9 Pre-Treatment (07-22): 20 PHQ-9 Most Recent (07-22): 10 Reviewed: TMS Mapping/Re-mapping completed Verification: I have reviewed the TMS Circuit Board Inspector Note and agree with the contents. The patient remains a candidate to continue TMS treatment per protocol. Assessment and Plan (1) Major depressive disorder, recurrent severe without psychotic features: Status: Acute Plan MT increased to 110%
--- NOTE | 2024-02-14 14:33 | HO.TMSDAILY2 ---
TMS Daily Progress Note Daily TMS Progress Note Date of Service: 02/14/24 Week #: 3 Treatment #(07-25): 12 PHQ-9 Pre-Treatment (07-22): 20 PHQ-9 Most Recent (07-22): 6 Reviewed: TMS Tech Note Reviewed Verification: I have reviewed the TMS Holistic Health Practitioner Note and agree with the contents. The patient remains a candidate to continue TMS treatment per protocol. Assessment and Plan (1) Major depressive disorder, recurrent severe without psychotic features: Status: Acute Plan Patient is starting to feel like she is doing better
--- NOTE | 2024-02-14 14:34 | HO.TMSDAILY2 ---
TMS Daily Progress Note Daily TMS Progress Note Date of Service: 02/14/24 Week #: 3 Treatment #(07-25): 13 PHQ-9 Pre-Treatment (07-22): 20 PHQ-9 Most Recent (07-22): 6 Reviewed: TMS Tech Note Reviewed Verification: I have reviewed the TMS Airplane Designer Note and agree with the contents. The patient remains a candidate to continue TMS treatment per protocol. Assessment and Plan (1) Major depressive disorder, recurrent severe without psychotic features: Status: Acute Plan Improved tolerance of treatment
--- NOTE | 2024-02-14 21:11 | HO.TMSDAILY2 ---
TMS Daily Progress Note Daily TMS Progress Note Date of Service: 01/10/24 Week #: 3 Treatment #(07-25): 14 PHQ-9 Pre-Treatment (07-22): 20 PHQ-9 Most Recent (07-22): 6 Reviewed: TMS Tech Note Reviewed Verification: I have reviewed the TMS Hardboard Factory Worker Note and agree with the contents. The patient remains a candidate to continue TMS treatment per protocol. Assessment and Plan (1) Major depressive disorder, recurrent severe without psychotic features: Status: Acute Plan improved continue plan of care
--- NOTE | 2024-02-14 21:14 | HO.TMSDAILY2 ---
TMS Daily Progress Note Daily TMS Progress Note Date of Service: 01/11/24 Week #: 3 Treatment #(07-25): 15 PHQ-9 Pre-Treatment (07-22): 20 PHQ-9 Most Recent (07-22): 6 Reviewed: TMS Tech Note Reviewed Verification: I have reviewed the TMS Game Trapper Note and agree with the contents. The patient remains a candidate to continue TMS treatment per protocol. Assessment and Plan (1) Major depressive disorder, recurrent severe without psychotic features: Status: Acute Plan did have headache
--- NOTE | 2024-02-14 21:17 | HO.TMSDAILY2 ---
TMS Daily Progress Note Daily TMS Progress Note Date of Service: 01/12/24 Week #: 4 Treatment #(07-25): 16 PHQ-9 Pre-Treatment (07-22): 20 PHQ-9 Most Recent (07-22): 6 Reviewed: TMS Tech Note Reviewed Verification: I have reviewed the TMS Prevocational/Rehabilitation Counselor Note and agree with the contents. The patient remains a candidate to continue TMS treatment per protocol. Assessment and Plan (1) Major depressive disorder, recurrent severe without psychotic features: Status: Acute Plan pt dealing with work stress computer issues ok with tx cont plan of care
--- NOTE | 2024-02-14 21:30 | HO.TMSDAILY2 ---
TMS Daily Progress Note Daily TMS Progress Note Date of Service: 01/15/24 Week #: 4 Treatment #(07-25): 17 PHQ-9 Pre-Treatment (07-22): 20 PHQ-9 Most Recent (07-22): 6 Reviewed: TMS Tech Note Reviewed Verification: I have reviewed the TMS Refuge Manager Note and agree with the contents. The patient remains a candidate to continue TMS treatment per protocol. Assessment and Plan (1) Major depressive disorder, recurrent severe without psychotic features: Status: Acute Plan doing ok cont plan of care
--- NOTE | 2024-02-14 21:32 | P.PNPS_ITS ---
TMS Daily Progress Note Daily TMS Progress Note Date of Service: 02/16/24 Week #: 4 Treatment #(07-25): 18 PHQ-9 Pre-Treatment (07-22): 20 PHQ-9 Most Recent (07-22): 6 Reviewed: TMS Tech Note Reviewed Verification: I have reviewed the TMS Sheet Metal Shop Helper Note and agree with the contents. The patient remains a candidate to continue TMS treatment per protocol. Assessment and Plan (1) Major depressive disorder, recurrent severe without psychotic features: Status: Acute Plan cont plan of care
--- NOTE | 2024-02-14 21:34 | P.PNPS_ITS ---
TMS Daily Progress Note Daily TMS Progress Note Date of Service: 02/14/24 Week #: 4 Treatment #(07-25): 18 PHQ-9 Pre-Treatment (07-22): 20 PHQ-9 Most Recent (07-22): 6 Reviewed: TMS Tech Note Reviewed Verification: I have reviewed the TMS Warranty Clerk Note and agree with the contents. The patient remains a candidate to continue TMS treatment per protocol. Assessment and Plan (1) Major depressive disorder, recurrent severe without psychotic features: Status: Acute Plan pt had problem with pain ? connection to scalp lowered mt 100 % then reevaluate pt seen settings evaluated
--- NOTE | 2024-02-14 21:38 | P.PNPS_ITS ---
TMS Daily Progress Note Daily TMS Progress Note Date of Service: 01/18/24 Week #: 4 Treatment #(07-25): 19 PHQ-9 Pre-Treatment (07-22): 20 PHQ-9 Most Recent (07-22): 6 Reviewed: TMS Tech Note Reviewed Verification: I have reviewed the TMS Residential Fee Appraiser Note and agree with the contents. The patient remains a candidate to continue TMS treatment per protocol. Assessment and Plan (1) Major depressive disorder, recurrent severe without psychotic features: Status: Acute Plan cont tx at 100 % for today
--- NOTE | 2024-02-14 21:40 | P.PNPS_ITS ---
TMS Daily Progress Note Daily TMS Progress Note Date of Service: 01/19/24 Week #: 5 Treatment #(07-25): 21 PHQ-9 Pre-Treatment (07-22): 20 PHQ-9 Most Recent (07-22): 4 Reviewed: TMS Tech Note Reviewed Verification: I have reviewed the TMS Chief Lock Operator Note and agree with the contents. The patient remains a candidate to continue TMS treatment per protocol. Assessment and Plan (1) Major depressive disorder, recurrent severe without psychotic features: Status: Acute Plan mood improved tx tolerated feeling more motivated
--- NOTE | 2024-02-14 21:43 | HO.TMSDAILY2 ---
TMS Daily Progress Note Daily TMS Progress Note Date of Service: 01/22/24 Week #: 5 Treatment #(07-25): 22 PHQ-9 Pre-Treatment (07-22): 20 PHQ-9 Most Recent (07-22): 4 Reviewed: TMS Tech Note Reviewed Verification: I have reviewed the TMS Outreach Analyst Note and agree with the contents. The patient remains a candidate to continue TMS treatment per protocol. Assessment and Plan (1) Major depressive disorder, recurrent severe without psychotic features: Status: Acute Plan cont plan of care had bryon kirby tx prior otherwise ok
--- NOTE | 2024-02-14 21:46 | P.PNPS_ITS ---
TMS Daily Progress Note Daily TMS Progress Note Date of Service: 01/23/24 Week #: 5 Treatment #(07-25): 23 PHQ-9 Pre-Treatment (07-22): 20 PHQ-9 Most Recent (07-22): 4 Reviewed: TMS Tech Note Reviewed Verification: I have reviewed the TMS Contract Coordinator Note and agree with the contents. The patient remains a candidate to continue TMS treatment per protocol. Assessment and Plan (1) Major depressive disorder, recurrent severe without psychotic features: Status: Acute Plan tx more tolerable
--- NOTE | 2024-02-14 22:04 | HO.TMSDAILY2 ---
TMS Daily Progress Note Daily TMS Progress Note Date of Service: 02/14/24 Week #: 5 Treatment #(07-25): 24 PHQ-9 Pre-Treatment (07-22): 20 PHQ-9 Most Recent (07-22): 4 Reviewed: TMS Tech Note Reviewed Verification: I have reviewed the TMS Drama Therapist Note and agree with the contents. The patient remains a candidate to continue TMS treatment per protocol. Assessment and Plan (1) Major depressive disorder, recurrent severe without psychotic features: Status: Acute Plan pt with more energy feeling better
--- NOTE | 2024-02-14 22:09 | HO.TMSDAILY2 ---
TMS Daily Progress Note Daily TMS Progress Note Date of Service: 01/25/24 Week #: 5 Treatment #(07-25): 25 PHQ-9 Pre-Treatment (07-22): 20 PHQ-9 Most Recent (07-22): 4 Reviewed: TMS Tech Note Reviewed Verification: I have reviewed the TMS Panelboard Operator Note and agree with the contents. The patient remains a candidate to continue TMS treatment per protocol. Assessment and Plan (1) Major depressive disorder, recurrent severe without psychotic features: Status: Acute Plan pt doing better tolerating tx
--- NOTE | 2024-02-14 22:12 | P.PNPS_ITS ---
TMS Daily Progress Note Daily TMS Progress Note Date of Service: 01/29/24 Week #: 6 Treatment #(07-25): 27 PHQ-9 Pre-Treatment (07-22): 20 PHQ-9 Most Recent (07-22): 4 Reviewed: TMS Tech Note Reviewed Verification: I have reviewed the TMS Ceo & Founder Note and agree with the contents. The patient remains a candidate to continue TMS treatment per protocol. Assessment and Plan (1) Major depressive disorder, recurrent severe without psychotic features: Status: Acute Plan having a difficult time situationally
--- NOTE | 2024-02-14 22:15 | P.PNPS_ITS ---
TMS Daily Progress Note Daily TMS Progress Note Date of Service: 01/30/24 Week #: 6 Treatment #(07-25): 28 PHQ-9 Pre-Treatment (07-22): 20 PHQ-9 Most Recent (07-22): 4 Reviewed: TMS Tech Note Reviewed Verification: I have reviewed the TMS Hoisting Engineer Note and agree with the contents. The patient remains a candidate to continue TMS treatment per protocol. Assessment and Plan (1) Major depressive disorder, recurrent severe without psychotic features: Status: Acute Plan pt tolerating tx cont plan of care
--- NOTE | 2024-02-14 22:18 | P.PNPS_ITS ---
TMS Daily Progress Note Daily TMS Progress Note Date of Service: 01/31/24 Week #: 6 Treatment #(07-25): 29 PHQ-9 Pre-Treatment (07-22): 20 PHQ-9 Most Recent (07-22): 4 Reviewed: TMS Tech Note Reviewed Verification: I have reviewed the TMS Restoration Technician Note and agree with the contents. The patient remains a candidate to continue TMS treatment per protocol. Assessment and Plan (1) Major depressive disorder, recurrent severe without psychotic features: Status: Acute Plan cont plan of care
--- NOTE | 2024-02-14 22:21 | P.PNPS_ITS ---
TMS Daily Progress Note Daily TMS Progress Note Date of Service: 02/05/24 Week #: 6 Treatment #(07-25): 30 PHQ-9 Pre-Treatment (07-22): 20 PHQ-9 Most Recent (07-22): 4 Reviewed: TMS Tech Note Reviewed Verification: I have reviewed the TMS Sales Floor Manager Note and agree with the contents. The patient remains a candidate to continue TMS treatment per protocol. Assessment and Plan (1) Major depressive disorder, recurrent severe without psychotic features: Status: Acute Plan cont plan of care
--- NOTE | 2024-02-14 22:25 | P.PNPS_ITS ---
TMS Daily Progress Note Daily TMS Progress Note Date of Service: 02/07/24 Week #: 7 Treatment #(07-25): 31 PHQ-9 Pre-Treatment (07-22): 20 PHQ-9 Most Recent (07-22): 4 Reviewed: TMS Tech Note Reviewed Verification: I have reviewed the TMS Optometry Professor Note and agree with the contents. The patient remains a candidate to continue TMS treatment per protocol. 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
--- NOTE | 2024-02-14 22:26 | P.PNPS_ITS ---
TMS Daily Progress Note Daily TMS Progress Note Date of Service: 02/09/24 Week #: 7 Treatment #(07-25): 32 PHQ-9 Pre-Treatment (07-22): 20 PHQ-9 Most Recent (07-22): 4 Reviewed: TMS Tech Note Reviewed Verification: I have reviewed the TMS Horticultural Nursery Assistant Note and agree with the contents. The patient remains a candidate to continue TMS treatment per protocol. 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
--- NOTE | 2024-02-19 17:39 | P.PNPS_ITS ---
TMS Daily Progress Note Daily TMS Progress Note Date of Service: 02/16/24 Week #: 7 Treatment #(07-25): 33 PHQ-9 Pre-Treatment (07-22): 20 PHQ-9 Most Recent (07-22): 4 Reviewed: TMS Tech Note Reviewed Verification: I have reviewed the TMS Digital Court Reporter Note and agree with the contents. The patient remains a candidate to continue TMS treatment per protocol. Assessment and Plan (1) Major depressive disorder, recurrent severe without psychotic features: Status: Acute Plan Patient had missed treatments secondary to family issues and migraine does not seem to be related to TMS has had good response monitor response the next few treatments she is on a taper
--- NOTE | 2024-02-19 17:41 | P.PNPS_ITS ---
TMS Daily Progress Note Daily TMS Progress Note Date of Service: 02/19/24 Week #: 7 Treatment #(07-25): 34 PHQ-9 Pre-Treatment (07-22): 20 PHQ-9 Most Recent (07-22): 4 Reviewed: TMS Tech Note Reviewed Verification: I have reviewed the TMS Mathematics Lecturer Note and agree with the contents. The patient remains a candidate to continue TMS treatment per protocol. Assessment and Plan (1) Major depressive disorder, recurrent severe without psychotic features: Status: Acute Plan Patient generally improved from the beginning of treatment has some frustrations with work issues and fairness
--- NOTE | 2024-02-27 23:15 | P.PNPS_ITS ---
TMS Daily Progress Note Daily TMS Progress Note Date of Service: 02/21/24 Week #: 8 Treatment #(07-25): 35 PHQ-9 Pre-Treatment (07-22): 20 PHQ-9 Most Recent (07-22): 4 Reviewed: TMS Tech Note Reviewed Verification: I have reviewed the TMS Rn Case Management Note and agree with the contents. The patient remains a candidate to continue TMS treatment per protocol. Assessment and Plan (1) Major depressive disorder, recurrent severe without psychotic features: Status: Acute Plan much improved inc assertiveness
--- NOTE | 2024-02-27 23:17 | HO.TMSDAILY2 ---
TMS Daily Progress Note Daily TMS Progress Note Date of Service: 02/27/24 Week #: 8 Treatment #(07-25): 36 PHQ-9 Pre-Treatment (07-22): 20 PHQ-9 Most Recent (07-22): 4 Reviewed: TMS Tech Note Reviewed Verification: I have reviewed the TMS Advertising Production Manager Note and agree with the contents. The patient remains a candidate to continue TMS treatment per protocol. Assessment and Plan (1) Major depressive disorder, recurrent severe without psychotic features: Status: Acute Plan last tx completed pt seen some RAZO but no major side effect concerns feels ect was quite helpful
== END 2024-02-28 15:22 | disposition home or self-care (01) ==
LOC: HO.PTMS 13:00
PROVIDERS: Visit Provider Clinical Nurse Specialist Psychiatric/Mental Health
DX: F33.2 Major depressive disorder, recurrent severe without psychotic features (principal); F90.0 Attention-deficit hyperactivity disorder, predominantly inattentive type
CPT/HCPCS: 90867; 90868

== ENCOUNTER 2024-03-20 07:02 | Outpatient (REF) | payer OTHER, SELFPAY ==
[2024-03-20 07:26] LABS: MANUAL DIFF FLAG NO
[2024-03-20 08:11] LABS: Basophils Percent Auto 0.4 % (0-2); Eosinophils Absolute Auto 0.2 X10*3/uL (0.0-0.4); Eosinophils Percent Auto 2.3 % (0-4); Hematocrit 36.2 % (37.0-47.0); Imm Gran Abs Auto 0.04 X10*3/uL (0.00-0.03); Imm Gran Pct Auto 0.5 % (0.0-0.4); Lymphocytes Percent Auto 37.9 % (20-40); Mean Corpuscular HGB Conc 33.1 g/dl (31.0-35.0); Mean Corpuscular Hemoglobin 28.2 pg (27.0-33.0); Mean Platelet Volume 10.4 fL (9.4-12.3); Monocytes Absolute Auto 0.5 X10*3/uL (0.1-1.2); Monocytes Percent Auto 5.7 % (2-11); Neutrophils Absolute Auto 4.2 x10*3/uL (2.0-8.3); Neutrophils Percent Auto 53.2 % (45-73); Platelet Count 335 X10*3/uL (160-400); Red Blood Count 4.26 X10*6/uL (4.20-5.50); Red Cell Distribution Width 13.3 % (11.0-16.0); White Blood Count 7.9 X10*3/uL (4.8-10.8)
[2024-03-20 08:36] LABS: Alanine Aminotransferase 22 U/L (0-31); Albumin Level 4.2 g/dL (3.5-5.0); Alkaline Phosphatase 100 U/L (39-117); Anion Gap 15 (12-20); Aspartate Amino Transferase 18 U/L (5-31); Bilirubin Total 0.3 mg/dL (0.0-1.0); Blood Urea Nitrogen 11 mg/dL (9-16); Calcium 9.4 mg/dL (8.4-10.2); Carbon Dioxide 27 mmol/L (22-29); Chloride 104 mmol/L (96-108); Estimated Glomerular Filt Rate 51; Glucose Random 112 mg/dL (60-115); Potassium 3.7 mmol/L (3.3-5.1); Sodium 142 mmol/L (135-145); Total Protein 7.6 g/dL (6.5-8.0)
[2024-03-20 08:53] LABS: TSH reflex Free T4 6.87 uIU/mL (0.32-4.0)
[2024-03-20 09:32] LABS: Free T4 (Free Thyroxine) 0.83 ng/dL (0.71-1.85)
== END 2024-03-20 07:03 | disposition home or self-care (01) ==
LOC: HO.LAB 07:02
PROVIDERS: PCP Internal Medicine Geriatric Medicine; Visit Provider Internal Medicine Geriatric Medicine
DX: E11.9 Type 2 diabetes mellitus without complications (principal); F41.1 Generalized anxiety disorder; E03.9 Hypothyroidism, unspecified; R53.83 Other fatigue
CPT/HCPCS: 36415; 80053; 82306; 84439; 84443; 85025

== ENCOUNTER 2024-10-29 19:53 | Emergency (ER) | payer OTHER, SELFPAY ==
--- NOTE | ~2024-10-29 | CT_ITS ---
CLINICAL HISTORY: left abdominal pain, diarrhea CT abdomen and pelvis with contrast Comparison: US/SR - US ABDOMEN COMP W ELASTOGRAPHY - 08/26/22 08:38 EST Findings: No consolidation or effusion. The liver is enlarged. The liver appears normal in contour. There is diffusely decreased hepatic attenuation. Minimal nonspecific thickening of the left adrenal gland. The gallbladder and solid organs are otherwise within normal limits. No hydronephrosis or hydroureter. No bowel obstruction, pneumoperitoneum, or pneumatosis. Mildly limited evaluation of the stomach related to gastric underdistention. The uterus is surgically absent. No bladder wall thickening. Nondilated appendix. No acute fracture visualized. IMPRESSION: 1. No acute inflammatory process identified within the abdomen or pelvis. 2. Hepatomegaly with fatty infiltration of the liver. This document has been electronically signed by: Nish Hendricks MD on 10/29/2024 23:51:47
[2024-10-29 20:02] VITALS: BP 122/70; PULSE 81; RESP 16; TEMP 36.1; O2SAT 97; BMI 42.1
--- NOTE | 2024-10-29 20:03 | ED.GENADULT ---
HPI - General Adult General Chief complaint: Abdominal Pain Stated complaint: nauseous/diarrhea/vomiting Time Seen by Provider: 10/29/24 22:51 Source: patient, RN notes reviewed and old records reviewed Mode of arrival: ambulatory Limitations: no limitations History of Present Illness ED Provider: Yusuf HPI narrative: 49-year-old female past medical history significant for depression, anemia, obesity presents for evaluation of abdominal pain and diarrhea. Patient reports she has had persistent diarrhea since Monday. She states that anything she eats causes her to have profuse, watery diarrhea. She denies any black or bloody stool. She has left-sided abdominal pain over the last 4 days as well. Denies any history abdominal surgeries. Denies any recent travel or recent antibiotic use. She denies any sick contacts The patient reports having had a similar episode about 2 weeks ago that resolved after about 6 days She is concerned due to the recurrence of her symptoms Related Data Home Medications ?Medication ?Instructions ?Recorded ?Confirmed dextroamphetamine-amphetamine 10 1 tab PO DAILY 10/19/20 11/24/23 mg tablet dextroamphetamine-amphetamine ER 1 cap PO QAM 10/19/20 11/24/23 30 mg 24hr capsule,extend release levothyroxine 150 mcg tablet 150 mcg PO DAILY 10/19/20 11/24/23 naproxen 500 mg tablet 500 mg PO BID 10/19/20 11/24/23 omeprazole 40 mg capsule,delayed 40 mg PO DAILY 10/19/20 11/24/23 release clindamycin phosphate 1 % topical 1 appl topical BID 08/19/22 02/14/23 solution topiramate 25 mg tablet 50 mg PO DAILY 02/02/23 11/24/23 duloxetine 60 mg capsule,delayed 120 mg PO DAILY 11/24/23 11/24/23 release Previous Rx's ?Medication ?Instructions ?Recorded vitamin B complex-folic acid 0.4 1 tab PO DAILY #90 tabs 10/17/23 mg tablet loperamide 2 mg capsule (Imodium 2 mg PO Q4H PRN loose stool #12 10/30/24 A-D) caps ondansetron 4 mg disintegrating 4 mg PO Q8H PRN nausea and 10/30/24 tablet vomiting #20 tabs Allergies Allergy/AdvReac Type Severity Reaction Status Date / Time bupropion [From WELLBUTRIN] Allergy Severe HIVES Verified 10/29/24 20:04 hydrocodone [From VICODIN] Allergy Severe VOMITING Verified 10/29/24 20:04 oxycodone [From OXYCONTIN] Allergy Severe VOMITING, Verified 10/29/24 20:04 itching tramadol [TRAMADOL] Allergy Severe VOMITING Verified 10/29/24 20:04 egg Allergy Intermediate Stomach Verified 10/29/24 20:04 Upset adhesive tape Allergy Mild Rash Verified 10/29/24 20:04 APRICOT Allergy Severe HIVES Uncoded 03/03/23 09:40 NARCOTICS Allergy Severe VOMITING Uncoded 03/03/23 09:40 Review of Systems Constitutional: Constitutional: Denies body ache(s), Denies chills, Denies fever(s) and Denies headache(s) Eyes: Eyes: Denies blurry vision ENT: Denies vertigo, Denies dizziness and Denies headache(s) Cardiovascular: Cardiovascular: Denies chest pain Gastrointestinal: Gastrointestinal: Reports abdominal pain, Denies melena, Denies hematochezia, Reports diarrhea, Reports loose stools, Reports nausea and Reports vomiting Musculoskeletal: Musculoskeletal: Denies back pain Integumentary/Breasts: Skin/Breast: Denies rash Neurologic: Denies vertigo, Denies dizziness and Denies headache(s) [facility] Past Medical History Medical History (Updated 10/29/24 @ 23:36 by Nash Goldberg) Personal history of nicotine dependence History of postoperative nausea and vomiting B12 deficiency Lumbar radiculopathy Anemia Labial abscess Hx of pilonidal cyst Surgical History (Updated 10/22/24 @ 14:55 by Kiah Gross PA-C) History of colonoscopy History of esophagogastroduodenoscopy (EGD) History of abdominoplasty History of hysterectomy History of shoulder surgery History of elbow surgery History of hand surgery Family History Family History Brother HTN (hypertension) Brother HTN (hypertension) Father HTN (hypertension) Social History Social History Patient Tobacco Use Status: Former Tobacco user Tobacco use type: Cigarette e-Cigarette/Vaping Use: Currently Using 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 Vital Signs: Vital Signs - 24 hr 10/29/24 23:11 10/30/24 01:50 10/30/24 02:03 Temperature 97.8 F 98.3 F 98.3 F Pulse Rate 63 66 66 Respiratory Rate 20 20 20 Blood Pressure 118/58 L 129/80 129/80 Pulse Oximetry 95 96 96 Oxygen Delivery Method Room Air Room Air Room Air BMI result Body Mass Index 42.1 Const General: healthy appearing, comfortable, no acute distress, alert and awake Nutritional Appearance: well nourished Orientation/consciousness: patient oriented x3 HENMT Head: Yes normocephalic and Yes atraumatic Eyes Eyelids: Yes eyelids normal Conjunctivae: conjunctivae normal Sclerae: sclerae normal Corneas: corneas normal Pupils: Equal, round and reactive pupils present EOM: EOMs intact bilaterally Neck Neck: Yes full ROM Resp Effort & Inspection: normal respiratory effort, able to speak in complete sentences and not labored GI Inspection: No distended Palpation (GI): Soft to palpation, not firm, Tenderness to palpation present (GI) in the LLQ, in the RLQ and in the LUQ, no guarding and not rigid Skin General skin exam: elasticity normal Neuro General: patient oriented x3 Cranial nerves: Yes Equal, round and reactive pupils present and Yes Bilaterally intact EOM present Cognition (Neuro): normal cognition Extrem Other: Moving all extremities well without any obvious deformities Course Course Course Narrative: RME: 49-year-old female presents to ED for abdominal pain, diarrhea, nausea, vomiting for the past 3 days. Patient denies any fever or chills. Patient denies any chest pain or shortness of breath. Labs ordered Reevaluation(s) Reevaluation #1: Patient's CT scan does not show any acute inflammatory changes due to explain her symptoms. She has not had any provide a stool sample. I feel that C diff was less likely as symptoms no evidence of colitis on CT scan. We will treat the patient with Zofran and Imodium and she would be referred to GI for persistent diarrhea Time: 01:32 Medications Administered Discontinued Medications Generic Name Dose Route Start Last Admin Trade Name Freq PRN Reason Stop Dose Admin Sodium Chloride 1,000 mls @ 999 mls/hr 10/29/24 23:15 10/30/24 01:31 Ns IV 10/30/24 00:15 Infused .Q1H1M APOLINAR Infusion Iohexol 100 ml 10/29/24 23:22 10/29/24 23:23 Iohexol 350 Mg/Ml 100 Ml Infus..Btl IV 10/29/24 23:23 100 ml ONCE ONE Administration Ondansetron HCl 4 mg 10/29/24 23:02 10/29/24 23:15 Ondansetron Hcl 4 Mg/2 Ml Vial IVPUSH 10/29/24 23:03 4 mg ONCE ONE Administration Medical Decision Making Medical Decision Making [facility] Narrative: 49-year-old female past medical history as above presents for evaluation abdominal pain with persistent diarrhea. Denies any black or bloody stool. She has no risk factors for C diff colitis. However the differential includes C diff, colitis, diverticulitis, gastroenteritis. Her labs are reassuring, she has no significant electrolyte abnormalities despite her vomiting and diarrhea. Given the she had similar episodes of persistent diarrhea twice in the last few weeks we will order a stool study to rule out C diff. a CT scan to evaluate for infectious colitis Differential Diagnosis Differential Diagnoses: The differential diagnosis associated with the presentation includes As above Lab Data [facility] Lab Attestation statement: I reviewed the patient's lab results. No leukocytosis or significant anemia. Normal platelet count. No electrolyte abnormalities warranting intervention. Random glucose of 126 but no evidence of DKA. 10/29/24 20:22 10/29/24 20:22 Labs: Lab Results 10/29/24 10/30/24 Range/Units 20:22 00:40 WBC 10.0 (4.8-10.8) X10*3/uL RBC 4.39 (4.20-5.50) X10*6/uL Hgb 12.2 (12.0-16.0) g/dl Hct 36.9 L (37.0-47.0) % MCV 84.1 (80.0-98.0) fL MCH 27.8 (27.0-33.0) pg MCHC 33.1 (31.0-35.0) g/dl RDW 13.6 (11.0-16.0) % Plt Count 379 (160-400) X10*3/uL MPV 9.5 (9.4-12.3) fL Immature Gran % (Auto) 0.7 H (0.0-0.4) % Neut % (Auto) 57.8 (45-73) % Lymph % (Auto) 31.2 (20-40) % Amelia % (Auto) 4.0 (2-11) % Eos % (Auto) 6.1 H (0-4) % Baso % (Auto) 0.2 (0-2) % Lymph # (Auto) 3.1 (1.2-4.9) X10*3/uL Amelia # (Auto) 0.4 (0.1-1.2) X10*3/uL Eos # (Auto) 0.6 H (0.0-0.4) X10*3/uL Baso # (Auto) 0.0 (0.0-0.2) X10*3/uL Abs Immat Gran (auto) 0.07 H (0.00-0.03) X10*3/uL Absolute Neuts (auto) 5.8 (2.0-8.3) x10*3/uL Absolute Nucleated RBC 0.000 (0.0-0.012) X10*3/uL Nucleated RBC % (auto) 0.0 (0.0-0.2) /100WBC Sodium 143 (135-145) mmol/L Potassium 3.4 (3.3-5.1) mmol/L Chloride 108 (96-108) mmol/L Carbon Dioxide 24 (22-29) mmol/L Anion Gap 14 (12-20) BUN 12 (9-16) mg/dL Creatinine 1.04 (0.5-1.4) mg/dL Estim Creat Clear Calc 73.3 Estimated GFR 56 Random Glucose 126 H (60-115) mg/dL Calcium 9.3 (8.4-10.2) mg/dL Total Bilirubin 0.3 (0.0-1.0) mg/dL AST 36 H (5-31) U/L ALT 45 H (0-31) U/L Alkaline Phosphatase 100 (39-117) U/L Total Protein 7.9 (6.5-8.0) g/dL Albumin 4.4 (3.5-5.0) g/dL Lipase 11 (8-78) U/L Beta HCG, Quant 3 mIU/mL Urine Color Yellow Urine Appearance Clear Urine pH 6.0 (5.0-9.0) Ur Specific [place] >= 1.030 H (1.005-1.025) Urine Protein Trace (Neg-Trace) mg/dL Urine Glucose (UA) Negative (Negative) mg/dL Urine Ketones Negative (Negative) mg/dL Urine Blood Negative (Negative) Urine Nitrite Negative (Negative) Ur Leukocyte Esterase Negative (Negative) Urine Test NEGATIVE (NEGATIVE) Radiology Impression Discussion of test interpretation with radiology: I have reviewed the radiologist's reading. Radiologist Impression: Findings: No consolidation or effusion. The liver is enlarged. The liver appears normal in contour. There is diffusely decreased hepatic attenuation. Minimal nonspecific thickening of the left adrenal gland. The gallbladder and solid organs are otherwise within normal limits. No hydronephrosis or hydroureter. No bowel obstruction, pneumoperitoneum, or pneumatosis. Mildly limited evaluation of the stomach related to gastric underdistention. The uterus is surgically absent. No bladder wall thickening. Nondilated appendix. No acute fracture visualized. IMPRESSION: 1. No acute inflammatory process identified within the abdomen or pelvis. 2. Hepatomegaly with fatty infiltration of the liver. This document has been electronically signed by: Nish Hendricks MD on 10/29/2024 23:51:47 Discharge Plan Discharge Clinical Impression: Abdominal pain, Diarrhea Patient Disposition: Home, Self-Care Instructions: Acute Diarrhea (ED) Additional Instructions: Your workup in the emergency department today was reassuring. This includes your blood work and your CT scan. You 1 not able to provide a stool sample I recommend that you follow-up with GI for any persistent diarrhea Drink lots of fluids, small sips at a time You may use Zofran for nausea and vomiting. Use Imodium as needed for diarrhea Return for new or worsening symptoms Prescriptions: New loperamide [Imodium A-D] 2 mg capsule 2 mg PO Q4H PRN (Reason: loose stool) Qty: 12 0RF Rx Instructions: administer after each loose stool until symptoms controlled; do not exceed 8 mg per 24 hrs ondansetron 4 mg tablet,disintegrating 4 mg PO Q8H PRN (Reason: nausea and vomiting) Qty: 20 0RF No Action vitamin B complex-folic acid 0.4 mg tablet 1 tab PO DAILY Qty: 90 2RF duloxetine 60 mg capsule,delayed release(DR/EC) 120 mg PO DAILY dextroamphetamine-amphetamine 30 mg capsule,extended release 24hr 1 cap PO QAM levothyroxine 150 mcg tablet 150 mcg PO DAILY dextroamphetamine-amphetamine 10 mg tablet 1 tab PO DAILY omeprazole 40 mg capsule,delayed release(DR/EC) 40 mg PO DAILY naproxen 500 mg tablet 500 mg PO BID clindamycin phosphate 1 % solution 1 appl topical BID topiramate 25 mg tablet 50 mg PO DAILY Referrals: Makayla Ramos MD [Physician] - (persistent diarrhea) Stand Alone Forms: Work/School Release Interventions: ED Discharge Assessment Last Done: 10/30/24 02:03 Discharge Date/Time: 10/30/24 02:03 Print Language: [place]
--- OUTSIDE RECORDS SUMMARY | 2024-10-29 20:21 | XMS_ITS | Encounter Summary ---
Author Organization [employer] Address [address] [facility] [address] [place] [address] Care Team Providers Care Pollution Control Chemist Name Role Phone Name, Eris FELDMAN Primary Care Provider [phone] Reason for Visit * Reason Onset Date Comments chartprep 10/25/2024 Encounter Details Date Type Department Care Team ([facility] st Contact Info) Description 10/25/2024 Telephone [facility] [address] [place], [place] [phone] Name, MD Eris [address] [place] [address] chartprep Social History Tobacco Use Types Packs/Day Years Used Date Smoking Tobacco: Every Day Cigarettes Comments:vape Alcohol Use Standard Drinks/Week Comments Not Currently 0 (1 standard drink = 0.6 oz pur e alcohol) Depression Answer Date Recorded Patient Health Questionnaire-9 Score 11 06/07/2024 Patient Health Questionnaire-9 Score 11 06/07/2024 Last PHQ-9: Questionnaire Data Not on file 1 08/08/2023 Housing Stability Answer Date Recorded What is your housing situation today? I have jb sidhu 06/07/[address] you li ve. Do you have problems with any of the following? I am not sure 06/07/2024 Food Insecurity Answer Date Recorded Within the past 12 months, y ou worried that your food would run out before you got money to buy more: Sometimes True 2023 Within the past 12 months,th e food you bought just didn't last and you didn't have enough money to get more: Sometimes True 06/07/2024 Transportation Answer Date Recorded In the past 12 months, has l ack of transportation kept you from medical appts, meetings, work or from getting things needed for daily living? No 06/07/2024 Utilities Answer Date Recorded In the past 12 months, has t he electric, gas, oil or water company threatened to shut off services in your home? No 06/07/2024 Depression Answer Date Recorded Patient Health Questionnaire-2 Score 4 06/07/2024 Internet Access Answer Date Recorded Internet Access Q1 Yes 06/07/2024 Internet Access Q2 Not on file 06/07/2024 Comments Unknown Sex and Gender Information Value Date Recorded Sex Assigned at Female 04/25/2022 10:29 AM EDT Legal Sex Female 10:29 AM EDT Gender Identity Female 01/11/2023 10:54 AM EDT Sexual Orientation Straight 01/11/2023 10 :54 AM EDT documented as of this encounter Miscellaneous Notes * Telephone Encounter - Kiah Henning MA - 10/25/2024 2:39 PM EDT .Chart Prep Labs: not done Images: not applicable Vaccines due: Covid Due, Hep B Due, PCV20 Due, Flu Due, and Shingles in pharmacy Due Referrals: Not Applicable Screenings: Eye Exam and Foot Exam Overdue care gaps: A1C, Glucose, SDOH, Disability , and Oral Health documented in this encounter Plan of Treatment Upcoming Encounters Date Type Department Care Team (Late st Contact Info) Description 01/29/2025 3:45 PM EDT Office Visit [facility] [address] [place] [phone] Name, MD Eris [address] [place] [address] documented as of this encounter Visit Diagnoses Not on filedocumented in this encounter Additional Health Concerns Assessment Noted Time PHQ-9 Depression Total Score: 11 024 4:10 PM EST documented as of this encounter Care Teams Pollution Control Chemist Relationship Specialty Start Date End Date NameEris MD [address] [place] [phone] PCP - General Family Medicine 07/14/15 documented as of this encounter
--- OUTSIDE RECORDS SUMMARY | 2024-10-29 20:21 | XMS_ITS | Encounter Summary ---
Author Organization [employer] Address [address] [facility] [address] [place] [address] Care Team Providers Care Ceramics Test Engineer Name Role Phone Name, Eris FELDMAN Primary Care Provider [phone] Encounter Details Date Type Department Care Team (Latest Contact Info) Description 10/24/2024 Travel Social History Tobacco Use Types Packs/Day Years [...] AM EDT documented as of this encounter Plan of Treatment Upcoming Encounters Date Type Department Care Team (Late st Contact Info) Description 01/29/2025 3:45 PM EDT Office Visit [facility] [address] [place] [phone] NameEris MD [address] [place] [phone] documented as of this encounter Visit Diagnoses Not on filedocumented in this encounter Additional Health Concerns Assessment Noted Time PHQ-9 Depression Total Score: 11 024 4:10 PM EST documented as of this encounter Care Teams Ceramics Test Engineer Relationship Specialty Start Date End Date NameEris MD [address] [place] [id number] PCP - General Family Medicine 07/14/15 documented as of this encounter
--- OUTSIDE RECORDS SUMMARY | 2024-10-29 20:21 | XMS_ITS | Data Portability ---
Author Organization [facility], Main Office Address [address] [facility] [address] [place] [id number] Care Team Providers Care Internet Designer Name Role Phone MARLEN FELIX Primary Care Provider MORRIS MOORE OTHER Assessment No assessment recorded. Plan of Treatment Reminders Order Date Submit Date Provider Last Modified By Organization Details Last Modified Time Details Appointments None record ed. Lab T4, free, serum 2014 015 [email or web address] Not available 6 10:08:54 TSH, serum or plasma 2014 015 [email or web address] Not available 6 10:08:54 Referral infect ious diseas e specia list referr al 2014 015 jose carlos Espino MD, [address] [place] [address], [address], 5 11:59:47 Procedures None record ed. Surgeries None record ed. Imaging None record ed. Medication Orders ProAir HFA 90 mcg/ac tuatio n aeroso l inhale r 2014 015 [email or web address] nz Not available 5 15:13:51 Synthr oid 137 mcg tablet 2014 015 [email or web address] nz Not available 5 15:13:52 omepra zole 20 mg capsul e,reyna yed releas e 2013 014 lgladingdilore nz Not available 4 15:01:45 Patient TargetsNo targets recorded. Patient Instructions Encounter Date Encounter Id Patient Instructions Last Modified By Organization Details Last Modified Time 01/13/2014 [id number] insomnia: care instructions [email or web address] Not available 01/13/2014 15:01:44 gastroesophageal reflux disease (GERD): care instructions [email or web address] Not available 01/13/2014 15:01:44 hypothyroidism: care instructions [email or web address] Not available 01/13/2014 15:01:44 attention defici t hyperactivity disorder (ADHD) in adults: care instructions [email or web address] Not available 01/14/2014 09:33:17 02/12/2015 [id number] anxiety disorder : care instructions [email or web address] Not available 02/12/2015 16:42:05 gastroesophageal reflux disease (GERD): care instructions [email or web address] Not available 02/12/2015 16:42:06 hypothyroidism: care instructions [email or web address] Not available 02/12/2015 16:42:06 skin lesions: ca re instructions [email or web address] Not available 02/12/2015 16:42:06 03/19/2015 [id number] controlling your asthma: care instructions [email or web address] Not available 03/19/2015 15:17:18 learning about asthma [email or web address] Not available 03/19/2015 15:17:19 smoking cessatio n counseling, greater than 3 minutes up to 10 minutes* [email or web address] Not available 03/23/2015 13:40:05 fibromyalgia: ca re instructions [email or web address] Not available 03/19/2015 15:17:18 gastroesophageal reflux disease (GERD): care instructions [email or web address] Not available 03/19/2015 15:17:17 hypothyroidism: care instructions [email or web address] Not available 03/19/2015 15:17:18 Reason for Referral Infectious Disease Specialis t Referral for Skin lesion Referring Physician: Marlen Felix, Family Medicine, Encounter Date: 02/12/2015 Results Created Date Observation Date Name Description Value Unit Range Abnormal Flag Note LastModifiedBy Organization Detail LastModifiedTime 02/08/20 14 02/07/2014 thyro id panel free T4 1.20 NG/dL (0.70- 1.80) Not Available [facility] (Centralized Electronic Ordering - All Locations) Patient Can Go To The Location Of Their Choice, [address] 05/05/2014 13:43:06 02/08/20 14 02/07/2014 thyro id panel TSH 5.60 mIU/m L (0.4-4 .0) high Not Available [facility] (Centralized Electronic Ordering - All Locations) Patient Can Go To The Location Of Their Choice, [id number] 05/05/2014 13:43:06 01/24/20 14 01/14/2014 imagi ng/di agnos tic resul t No observ ation record ed. shade espinoza Not Available 02/12/2015 16:15:46 09/07/19 15 09/06/2014 imagi ng/di agnos tic resul t No observ ation record ed. [email or web address] espinoza [facility] Diagnosit Imaging Dept [address] [place] [address], [place], [address], 02/12/2015 16:15:48 03/24/20 15 03/23/2015 MAMMO , scree lauren, digit al, bilat eral Final Result Name RODERICK Huerta 8 Sex F 07 1975 Locati on F Admitt ing Physic marcelino Reques ting Physic marcelino Marlen Alaniz g-Dilo ger Exam DIGITA L MAMMOG SUZY SCREEN ING BILATE RAL 03 24 2015 14 07 DIGITA L MAMMOG SUZY SCREEN ING BILATE RAL INDICA TION Screen ing. Full-f ield digita l mammog myranda of both breast s was perfor med and compar ed to previo us from 2013. There are scatte red fibrog landul ar densit ies (appro ximate ly 25-50 glandu lar). No suspic ious masses suspic ious cluste rs of calcif icatio ns or areas of radha ectura l distor tion are seen in either breast . IMPRES LISA No mammog raphic eviden ce of malign cristobal. BI-RAD S 1-Nega tive Lay letter mailed to héctor garcia Comput er-aid ed detect ion (CAD) was used in the interp retati on of this study. WSN RII-WA [id number] 05 Interp reting Radiol ogist Celso Wilkinson MD Attend ing Radiol ogist Celso Wilkinson MD Finali zing Radiol ogist Celso Wilkinson MD Transc ribed Date 09 29 2015 15 10 Finali zed Date 2014 Dictat ed By: Celso Wilkinson MD Dictat ed Date/T nicki: 3:13 pm Review ed By: Celso Wilkinson MD Signed By: Celso Wilkinson MD Signed Date/T nicki: 3:13 pm Transc ribed By: MIRNA Transc riptio n Date/T nicki: 3:13 pm Birads : Patien t Class: Outpat ient build [facility] (Centralized Electronic Ordering - All Locations) Patient Can Go To The Location Of Their Choice, [address] 06/03/2015 04:10:42 03/24/20 15 03/24/2015 imagi ng/di agnos tic resul t No observ ation record ed. [email or web address] [facility] Imaging Orders [address], [place], [address], 03/27/2015 09:14:31 Result Notes None recorded. Problems Name Problem SNOMED Code Status Onset Date Resolution Date Notes Provider Name and Address Organization Details Recorded Time Abdomina l pain [id number] Completed 201301/07/2014 IMPRESSI ON: CT AND LABS REVIEWED , EXAM AND HX CONSISTE NT WITH CONSTIPA TION, TIRLA OF MIRALAX BID UNTIL CLEANED OUT, RETURN IF ANYTHING IS WORSENIN G; RECORDED 10/10/19 14 10:45AM BY JAYSON GUZMAN MA, ANNOTATI ON/ADDEN DUM Not Available [facility] 4 15:11:10 Acute bronchit is [id number] Completed 200801/07/2014 IMPRESSI ON: PRODUCTI VE COUGH AND WHEEZING , IS A SMOKER, TREAT WITH ZPAK, CALL IF NOT BETTER.I GVE A PROAIR INHALER TO PT FOR SOME WHEEZING AND OUT OF WORK NOTE.; RECORDED 02/13/20 09 11:06AM BY JACK CAMEJO ON/ADDEN DUM Not Available [facility] 4 15:11:10 Acute secretor y otitis media 979729853 Completed 200801/07/2014 IMPRESSI ON: RIGHT OM, TX BELOW, MOTRIN OR TYLENOL AND REST. CALL IF NOT BETTER; RECORDED 04/30/20 09 2:43PM BY BHUMI MCCOY MA, ANNOTATI ON/ADDEN DUM Not Available [facility] 4 15:11:10 Acute pharyngi tis 290105096 Completed 200801/07/2014 RECORDED 07/25/19 09 12:21PM BY TR LLAMAS, ANNOTATI ON/ADDEN DUM Not Available [facility] 4 15:11:10 Acute upper respirat ory infectio n 80001228 Completed 201201/07/2014 RECORDED 08/09/19 13 3:43PM BY JAYCE RENAE, RAVIATI ON/ADDEN DUM Not Available [facility] 4 15:11:10 Allergic rhinitis 05795752 Active 2013 RECORDED 11/22/19 14 3:27PM BY JAYCE RENAE, OFFICE VISIT Not Available [facility] 4 05:42:31 Anxiety state 523747762 Active 2013 IMPRESSI ON: ON MEDS AND IN COUNSELI NG; RECORDED 11/23/19 14 1:31PM BY MARLEN Corley MD, OFFICE VISIT [place] lance [place] - [facility] 5 16:38:42 Disturba nce of attentio n 91811566 Completed 201201/07/2014 IMPRESSI ON: PT NEEDS EVAL FOR ADHD, SHE WILL SET UP APPT WITH A PSYCHIAT RIST; RECORDED 11/09/19 13 10:28AM BY JAYSON GUZMAN MA, JACK ON/ADDEN DUM Not Available [facility] 4 15:11:10 Carbuncl e of skin and/or subcutan eous tissue 10942983 Completed 200701/07/2014 IMPRESSI ON: R INGUINAL FOLD; RECORDED 03/28/20 08 9:38AM BY JACK RIVERA ON/ADDEN DUM Not Available [facility] 4 15:11:10 Cellulit is 014867428 Completed 201101/07/2014 RECORDED 05/14/20 12 10:53AM BY BHUMI MCCOY MA, JACK ON/ADDEN DUM Not Available [facility] 4 15:11:10 Screenin g for malignan t neoplasm of cervix Completed 201101/07/2014 RECORDED 05/14/20 12 10:53AM BY BHUMI MCCOY MA, ANNOTATI ON/ADDEN DUM Not Available [facility] 4 15:11:10 Chest pain 69345861 Completed 200701/07/2014 RECORDED 03/03/20 08 12:17PM BY JACK DAVIDSON ON/ADDEN DUM Not Available [facility] 4 15:11:10 Cough 96228761 Completed 201301/07/2014 IMPRESSI ON: POST VIRAL, MILD NO SIGNS OF ILLNESS GAVE SAMPLE OF ADVAIR TO TRY TO HELP WITH COUGH, NOT INTEREST ED IN ROBITUSS IN WITH CODEINE, CHANGE TO ZYRTEC, CALL IF NOT IMPROVED ; RECORDED 10/10/19 14 10:45AM BY JAYSON GUZMAN MA, JACK ON/ADDEN DUM Not Available [facility] 4 15:11:10 Dysphagi a [id number] Completed 201101/07/2014 RECORDED 05/14/20 12 10:53AM BY BHUMI MCCOY MA, ANNOTATI ON/ADDEN DUM Not Available [facility] 4 15:11:10 Respirat ory finding 813264803 Completed 200701/07/2014 RECORDED 03/03/20 08 12:17PM BY JACK DAVIDSON ON/ADDEN DUM Not Available [facility] 4 15:11:11 Follow-u p encounte r Completed 201301/07/2014 RECORDED 07/04/19 14 10:44AM BY JACK CAMEJO ON/ADDEN DUM Not Available [facility] 4 15:11:11 Gastroes ophageal reflux disease 673170869 Active 2013 RECORDED 11/22/19 14 3:27PM BY JAYCE RENAE, OFFICE VISIT Marlen [place] lance [place] - [facility] 5 15:13:51 Influenz a vaccine needed 90071103329 06 Completed 200901/07/2014 RECORDED 07/03/19 10 9:35AM BY JAYCE RENAE, HISTORIC AL SUMMARY Not Available [facility] 4 15:11:11 Tobacco user 448769349 Active 2013 RECORDED 11/22/19 14 3:27PM BY JAYCE RENAE, OFFICE VISIT Mar[place] l[place] [facility] 5 15:13:51 History of clinical finding in subject 271133393 Active 2013 RECORDED 10/10/19 14 10:45AM BY JAYSON GUZMAN MA, OFFICE VISIT Not Available [facility] 4 15:11:11 Adult health examinat ion Completed 201201/07/2014 IMPRESSI ON: PAP MAMMO AND COLONOWO CY UTD; RECORDED 10/19/19 13 3:08PM BY JACK CAMEJO ON/ADDEN DUM Not Available [facility] 4 15:11:11 Blood in urine 05373706 Completed 201301/07/2014 IMPRESSI ON: NO BLOOD IN URINE CHECK FOR INFECTIO N BUT VERY UNLIKELY ; RECORDED 10/10/19 14 10:45AM BY JAYSON GUZMAN MA, ANNOTATI ON/ADDEN DUM Not Available [facility] 4 15:11:11 Pure hypercho lesterol emia 851518760 Active 2013 RECORDED 11/22/19 14 3:27PM BY JAYCE RENAE, OFFICE VISIT Not Available [facility] 4 05:42:31 Hypothyr oidism 74210929 Active 2013 IMPRESSI ON: CONTINUE MEDS, LEVLE WELL CONTROLL ED WITH DR SANDHU; RECORDED 11/22/19 14 3:27PM BY JAYCE RENAE, OFFICE VISIT Mar[place] lance [facility] 5 15:13:51 Influenz a with non-resp iratory manifest ation 63099600 Completed 200701/07/2014 RECORDED 03/03/20 08 12:17PM BY RAVI DAVIDSONATI ON/ADDEN DUM Not Available [facility] 4 15:11:11 Insomnia 454573232 Active 2013 IMPRESSI ON: BETTER WITH LORAZEPA M CONTINUE MED, SET UP COUNSELI NG; RECORDED 11/22/19 14 3:27PM BY JAYCE RENAE, OFFICE VISIT Not Available [facility] 4 05:42:31 Irritabl e bowel syndrome 93619362 Active 2013 RECORDED 11/22/19 14 3:27PM BY JAYCE RENAE, OFFICE VISIT Not Available [facility] 4 05:42:31 Laborato ry procedur e performe d 083715530 Completed 201301/07/2014 RECORDED 10/10/19 14 10:45AM BY JAYSON GUZMAN MA, ANNOTATI ON/ADDEN DUM Not Available [facility] 4 15:11:12 Low back pain 097683406 Active 2013 IMPRESSI ON: RESOLVED , WAS IN PT BUT MUCH BETTER.; RECORDED 11/22/19 14 3:27PM BY JAYCE RENAE, OFFICE VISIT Not Available [facility] 4 05:42:31 Lumbar sprain 234088441 Completed 200701/07/2014 IMPRESSI ON: WITH LEFT RADICULO PATHIC PAIN; RECORDED 03/03/20 08 12:17PM BY SD KEMP, RAVIATI ON/ADDEN DUM Not Available [facility] 4 15:11:12 Malaise and fatigue 867601899 Completed 200801/07/2014 IMPRESSI ON: BILAT LOWERLEG PAIN, RELIEVED WITH EPIDURAL THEN THEY RETURN WHEN WEARS OFF, RANDOM SUGAR TODAY 101, WILL CHECK FASTING SUGAR; RECORDED 04/02/20 09 9:04AM BY BHUMI MCCOY MA, ANNOTATI ON/ADDEN DUM Not Available [facility] 4 15:11:12 Amnesia 33769498 Completed 201201/07/2014 IMPRESSI ON: EVAL BY ENEDINA DICK; RECORDED 11/09/19 13 10:28AM BY JAYSON GUZMAN MA, ANNOTATI ON/ADDEN DUM Not Available [facility] 4 15:11:12 Migraine 73140205 Active 2013 RECORDED 11/22/19 14 3:27PM BY JAYCE RENAE, OFFICE VISIT Not Available [facility] 4 05:42:31 Cyst of eyelid 28698756 Completed 201101/07/2014 RECORDED 05/14/20 12 10:53AM BY BHUMI MCCOY MA, ANNOTATI ON/ADDEN DUM Not Available [facility] 4 15:11:12 Fibromyo sitis 14231836 Active 2013 IMPRESSI ON: REALLY HELPED WITH SAVELLA INITIALL Y, NOW WITH INCREE IN PAIN INCREASE TO 100MG IN AM AND 5 MG PM, NEEDS DAILY EXERCISE AND STRETCHI NG; RECORDED 11/22/19 14 3:27PM BY JAYCE RENAE, OFFICE VISIT Mar[place] lance [facility] 5 15:13:51 Administ ration of bacteria l and viral vaccine Completed 201001/07/2014 RECORDED 07/23/19 11 2:33PM BY JAYCE RENAE, OFFICE VISIT Not Available 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 DOES NOT FOLLOW TRIGEMIN AL NEURALGI A PATTERN. START GABAPENT IN, REFER TO NEURO; RECORDED 11/22/19 14 3:27PM BY JAYCE RENAE, OFFICE VISIT Not Available [facility] 4 05:42:31 Otalgia 60359314 Completed 201101/07/2014 RECORDED 05/14/20 12 10:53AM BY BHUMI MCCOY MA, JACK ON/ADDEN DUM Not Available [facility] 4 15:11:12 Knee pain Completed 200701/07/2014 IMPRESSI ON: REVIEWED LABS AND XRAY WITH PT, SEEMS MUSCULAR , ENCOURAG ED STRETCHI NG, CHANGE TO SOMA, WALKING AND CALL IF NOT BETTER; RECORDED 03/03/20 08 11:15AM BY JACK KIM ON/ADDEN DUM Not Available [facility] 4 15:11:13 Pain of elbow region 10514366 Completed 200701/07/2014 IMPRESSI ON: PT WITH SIGNIFIC ANT PAIN IN BILAT UPPER ARMS, STATES YEARS AGO HAD AN EMG AND THEY FELT SHE HAD SOME EARLY NERVE DAMAGE, PAIN KEEPS HER UP AT NIGHT, PAIN BILAT TO HANDS, FELL WORKUP WITH DR DE LA VEGA, MILD HELP WITH NSAIDS,C [facility] MRI, TRIAL OF ULTRAM AND FOLLOW UP HERE IN 2 WEEKS; RECORDED 06/11/20 08 1:40PM BY JACK KIM ON/ADDEN DUM Not Available [facility] 4 15:11:13 Pain in limb 64852726 Completed 200801/07/2014 IMPRESSI ON: BILAT LOWER LEGS, CHECK THYROID AND GLUCOSE, TRY LYRICA; RECORDED 04/02/20 09 9:04AM BY BHUMI MCCOY MA, JACK ON/ADDEN DUM Not Available [facility] 4 15:11:13 Pain in thoracic spine 107381725 Completed 200701/07/2014 RECORDED 05/28/20 08 7:51AM BY JACK KIM ON/ADDEN DUM Not Available [facility] 4 15:11:13 Eruption 841918168 Completed 201101/07/2014 RECORDED 05/14/20 12 10:53AM BY BHUMI MCCOY MA, JACK ON/ADDEN DUM Not Available [facility] 4 15:11:13 Allergic rhinitis 42384207 Completed 201101/07/2014 RECORDED 10/04/19 12 10:39AM BY BHUMI MCCOY MA, ANNOTATI ON/ADDEN DUM Not Available [facility] 4 15:11:13 Inflamma tion of sacroili ac joint 41707938 Completed 201101/07/2014 RECORDED 05/14/20 12 10:53AM BY BHUMI MCCOY MA, JACK ON/ADDEN DUM Not Available [facility] 4 15:11:13 Sciatica 37163493 Completed 201101/07/2014 RECORDED 05/14/20 12 10:53AM BY BHUMI MCCOY MA, RAVIATI ON/ADDEN DUM Not Available [facility] 4 15:11:13 Chronic sinusiti s 03956627 Completed 201101/07/2014 RECORDED 05/14/20 12 10:53AM BY BHUMI MCCOY MA, RAVIATI ON/ADDEN DUM Not Available [facility] 4 15:11:13 Screenin g for malignan t neoplasm of colon Completed 201101/07/2014 RECORDED 05/14/20 12 10:53AM BY BHUMI MCCOY MA, JACK ON/ADDEN DUM Not Available [facility] 4 15:11:13 Sign or symptom of the urinary system 71569266 Completed 201101/07/2014 RECORDED 05/14/20 12 10:53AM BY BHUMI MCCOY MA, JACK ON/ADDEN DUM Not Available [facility] 4 15:11:13 Tobacco dependen ce syndrome 34895825 Active 2013 RECORDED 11/22/19 14 3:40PM BY JAYCE RENAE, OFFICE VISIT Not Available [facility] 4 05:42:32 Constipa tion 58129364 Completed 200701/07/2014 IMPRESSI ON: RESOLVED WITH DIET CHANGES, NO PAIN; RECORDED 03/03/20 08 12:17PM BY JACK DAVIDSON ON/ADDEN DUM Not Available [facility] 4 15:11:14 Pruritic disorder 368640099 Completed 200701/07/2014 RECORDED 03/03/20 08 12:17PM BY JACK DAVIDSON ON/ADDEN DUM Not Available [facility] 4 15:11:14 Urinary tract infectio us disease 72539845 Completed 200701/07/2014 IMPRESSI ON: URINARY FREQUENC Y, LEFT FLANK PAIN BUT ALOS RUQ PAIN, RULE OUT UTI AND KIDNEY STONE; RECORDED 05/28/20 08 7:51AM BY TR LLAMAS, ANNOTATI ON/ADDEN DUM Not Available [facility] 4 15:11:14 Vaginiti s and vulvovag initis Completed 200701/07/2014 RECORDED 03/03/20 08 11:15AM BY TR LLAMAS, ANNOTATI ON/ADDEN DUM Not Available [facility] 4 15:11:14 Acute upper respirat ory infectio n 92101775 Active 2013 IMPRESSI ON: ENCOURAG E REST AND HYDRATIO N.; RECORDED 11/22/19 14 3:27PM BY JAYCE RENAE, OFFICE VISIT Not Available [facility] 4 05:42:32 Wheezing 62583568 Active 2013 RECORDED 11/22/19 14 3:27PM BY JAYCE RENAE, OFFICE VISIT Not Available [facility] 4 05:42:32 Attentio n deficit hyperact ivity disorder 506338483 Active 2013 STORY: DIAGNOSE D 10/2013; IMPRESSI ON: ON MEDS; RECORDED 11/23/19 14 1:31PM BY MARLEN Corley MD, OFFICE VISIT Not Available [facility] 4 05:42:31 Abdomina l pain 02740825 Completed 201302/03/2014 IMPRESSI ON: CT AND LABS REVIEWED , EXAM AND HX CONSISTE NT WITH CONSTIPA TION, TIRLA OF MIRALAX BID UNTIL CLEANED OUT, RETURN IF ANYTHING IS WORSENIN G; RECORDED 10/10/19 14 10:45AM BY JAYSON GUZMAN MA, ANNOTATI ON/ADDEN DUM Not Available [facility] 4 05:42:30 Acute bronchit is 56449220 Completed 200802/03/2014 IMPRESSI ON: PRODUCTI VE COUGH AND WHEEZING , IS A SMOKER, TREAT WITH ZPAK, CALL IF NOT BETTER.I GVE A PROAIR INHALER TO PT FOR SOME WHEEZING AND OUT OF WORK NOTE.; RECORDED 02/13/20 09 11:06AM BY JAYCE RENAE, RAVIATI ON/ADDEN DUM Not Available [facility] 4 05:42:30 Acute secretor y otitis media 667293775 Completed 200802/03/2014 IMPRESSI ON: RIGHT OM, TX BELOW, MOTRIN OR TYLENOL AND REST. CALL IF NOT BETTER; RECORDED 04/30/20 09 2:43PM BY BHUMI MCCOY MA, RAVIATI ON/ADDEN DUM Not Available [facility] 4 05:42:30 Acute pharyngi tis 085483945 Completed 200802/03/2014 RECORDED 07/25/19 09 12:21PM BY TR LLAMAS, RAVIATI ON/ADDEN DUM Not Available [facility] 4 05:42:30 Acute upper respirat ory infectio n 09738076 Completed 201202/03/2014 RECORDED 08/09/19 13 3:43PM BY JAYCE RENAE, RAVIATI ON/ADDEN DUM Not Available [facility] 4 05:42:31 Disturba nce of attentio n 38880702 Completed 201202/03/2014 IMPRESSI ON: PT NEEDS EVAL FOR ADHD, SHE WILL SET UP APPT WITH A PSYCHIAT RIST; RECORDED 11/09/19 13 10:28AM BY JAYSON GUZMAN MA, JACK ON/ADDEN DUM Not Available [facility] 4 05:42:31 Carbuncl e of skin and/or subcutan eous tissue 80642162 Completed 200702/03/2014 IMPRESSI ON: R INGUINAL FOLD; RECORDED 03/28/20 08 9:38AM BY JACK RIVERA ON/ADDEN DUM Not Available [facility] 4 05:42:31 Cellulit is 032944430 Completed 201102/03/2014 RECORDED 05/14/20 12 10:53AM BY BHUMI MCCOY MA, JACK ON/ADDEN DUM Not Available [facility] 4 05:42:31 Screenin g for malignan t neoplasm of cervix Completed 201102/03/2014 RECORDED 05/14/20 12 10:53AM BY BHUMI MCCOY MA, ANNOTATI ON/ADDEN DUM Not Available [facility] 4 05:42:31 Chest pain 72388030 Completed 200702/03/2014 RECORDED 03/03/20 08 12:17PM BY JACK DAVIDSON ON/ADDEN DUM Not Available [facility] 4 05:42:31 Cough 56506799 Completed 201302/03/2014 IMPRESSI ON: POST VIRAL, MILD NO SIGNS OF ILLNESS GAVE SAMPLE OF ADVAIR TO TRY TO HELP WITH COUGH, NOT INTEREST ED IN ROBITUSS IN WITH CODEINE, CHANGE TO ZYRTEC, CALL IF NOT IMPROVED ; RECORDED 10/10/19 14 10:45AM BY JAYSON GUZMAN MA, JACK ON/ADDEN DUM Not Available [facility] 4 05:42:31 Dysphagi a 60561289 Completed 201102/03/2014 RECORDED 05/14/20 12 10:53AM BY BHUMI MCCOY MA, JACK ON/ADDEN DUM Not Available [facility] 4 05:42:31 Respirat ory finding 117016507 Completed 200702/03/2014 RECORDED 03/03/20 08 12:17PM BY JACK DAVIDSON ON/ADDEN DUM Not Available [facility] 4 05:42:31 Follow-u p encounte r Completed 201302/03/2014 RECORDED 07/04/19 14 10:44AM BY JACK CAMEJO ON/ADDEN DUM Not Available [facility] 4 05:42:31 Influenz a vaccine needed 80818387204 06 Completed 200902/03/2014 RECORDED 07/03/19 10 9:35AM BY JAYCE RENAE, HISTORIC AL SUMMARY Not Available [facility] 4 05:42:31 Adult health examinat ion Completed 201202/03/2014 IMPRESSI ON: PAP MAMMO AND COLONOWO CY UTD; RECORDED 10/19/19 13 3:08PM BY JACK CAMEJO ON/ADDEN DUM Not Available [facility] 4 05:42:31 Blood in urine 53612937 Completed 201302/03/2014 IMPRESSI ON: NO BLOOD IN URINE CHECK FOR INFECTIO N BUT VERY UNLIKELY ; RECORDED 10/10/19 14 10:45AM BY JAYSON GUZMAN MA, JACK ON/ADDEN DUM Not Available [facility] 4 05:42:31 Influenz a with non-resp iratory manifest ation 34593611 Completed 200702/03/2014 RECORDED 03/03/20 08 12:17PM BY JACK DAVIDSON ON/ADDEN DUM Not Available [facility] 4 05:42:31 Laborato ry procedur e performe d 816114599 Completed 201302/03/2014 RECORDED 10/10/19 14 10:45AM BY JAYSON GUZMAN MA, JACK ON/ADDEN DUM Not Available [facility] 4 05:42:31 Lumbar sprain 142264493 Completed 200702/03/2014 IMPRESSI ON: WITH LEFT RADICULO PATHIC PAIN; RECORDED 03/03/20 08 12:17PM BY JACK DAVIDSON ON/ADDEN DUM Not Available [facility] 4 05:42:31 Malaise and fatigue 423196307 Completed 200802/03/2014 IMPRESSI ON: BILAT LOWERLEG PAIN, RELIEVED WITH EPIDURAL THEN THEY RETURN WHEN WEARS OFF, RANDOM SUGAR TODAY 101, WILL CHECK FASTING SUGAR; RECORDED 04/02/20 09 9:04AM BY BHUMI MCCOY MA, JACK ON/ADDEN DUM Not Available [facility] 4 05:42:31 Amnesia 58219515 Completed 201202/03/2014 IMPRESSI ON: EVAL BY PSYCHAIJose Luis RY; RECORDED 11/09/19 13 10:28AM BY JAYSON GUZMAN MA, JACK ON/ADDEN DUM Not Available [facility] 4 05:42:31 Cyst of eyelid 72298643 Completed 201102/03/2014 RECORDED 05/14/20 12 10:53AM BY BHUMI MCCOY MA, ANNOTATI ON/ADDEN DUM Not Available [facility] 4 05:42:31 Administ ration of bacteria l and viral vaccine Completed 201002/03/2014 RECORDED 07/23/19 11 2:33PM BY JAYCE RENAE, OFFICE VISIT Not Available [facility] 4 05:42:31 Otalgia 97866284 Completed 201102/03/2014 RECORDED 05/14/20 12 10:53AM BY BHUMI MCCOY MA, JACK ON/ADDEN DUM Not Available [facility] 4 05:42:31 Knee pain Completed 200702/03/2014 IMPRESSI ON: REVIEWED LABS AND XRAY WITH PT, SEEMS MUSCULAR , ENCOURAG ED ELEANOR DEGROOT, CHANGE TO SOMA, WALKING AND CALL IF NOT BETTER; RECORDED 03/03/20 08 11:15AM BY TR LLAMAS, RAVIATI ON/ADDEN DUM Not Available [facility] 4 05:42:31 Pain of elbow region 09670139 Completed 200702/03/2014 IMPRESSI ON: PT WITH SIGNIFIC ANT PAIN IN BILAT UPPER ARMS, STATES YEARS AGO HAD AN EMG AND THEY FELT SHE HAD SOME EARLY NERVE DAMAGE, PAIN KEEPS HER UP AT NIGHT, PAIN BILAT TO HANDS, FELL WORKUP WITH DR DE LA VEGA, MILD HELP WITH NSAIDS,C JENIFFER MRI, TRIAL OF ULTRAM AND FOLLOW UP HERE IN 2 WEEKS; RECORDED 06/11/20 08 1:40PM BY JACK KIM ON/ADDEN DUM Not Available [facility] 4 05:42:31 Pain in limb 22178609 Completed 200802/03/2014 IMPRESSI ON: BILAT LOWER LEGS, CHECK THYROID AND GLUCOSE, TRY LYRICA; RECORDED 04/02/20 09 9:04AM BY BHUMI MCCOY MA, JACK ON/ADDEN DUM Not Available [facility] 4 05:42:31 Pain in thoracic spine [id number] Completed 200702/03/2014 RECORDED 05/28/20 08 7:51AM BY JACK KIM ON/ADDEN DUM Not Available [facility] 4 05:42:31 Palpitat ions 32616540 Active 2013 IMPRESSI ON: [facility] NL[facility] RECORDED 11/23/19 14 1:31PM BY MARLEN Corley MD, OFFICE VISIT Not Available [facility] 4 05:42:31 Posttrau matic stress disorder 78201734 Active 2013 DIAGNOSE D 10/2013; RECORDED 11/22/19 14 3:39PM BY JAYCE RENAE, OFFICE VISIT Not Available [facility] 4 05:42:31 Eruption [id number] Completed 201102/03/2014 RECORDED 05/14/20 12 10:53AM BY BHUMI MCCOY MA, ANNOTATI ON/ADDEN DUM Not Available [facility] 4 05:42:31 Inflamma tion of sacroili ac joint 83571288 Completed 201102/03/2014 RECORDED 05/14/20 12 10:53AM BY BHUMI MCCOY MA, ANNOTATI ON/ADDEN DUM Not Available [facility] 4 05:42:32 Sciatica 15516902 Completed 201102/03/2014 RECORDED 05/14/20 12 10:53AM BY BHUMI MCCOY MA, ANNOTATI ON/ADDEN DUM Not Available [facility] 4 05:42:32 Chronic sinusiti s 58735650 Completed 201102/03/2014 RECORDED 05/14/20 12 10:53AM BY BHUMI MCCOY MA, ANNOTATI ON/ADDEN DUM Not Available [facility] 4 05:42:32 Screenin g for malignan t neoplasm of colon Completed 201102/03/2014 RECORDED 05/14/20 12 10:53AM BY BHUMI MCCOY MA, ANNOTATI ON/ADDEN DUM Not Available [facility] 4 05:42:32 Sign or symptom of the urinary system 61635737 Completed 201102/03/2014 RECORDED 05/14/20 12 10:53AM BY BHUMI MCCOY MA, ANNOTATI ON/ADDEN DUM Not Available [facility] 4 05:42:32 Constipa tion 38814758 Completed 200702/03/2014 IMPRESSI ON: RESOLVED WITH DIET CHANGES, NO PAIN; RECORDED 03/03/20 08 12:17PM BY RAVI DAVIDSONATI ON/ADDEN DUM Not Available [facility] 4 05:42:32 Pruritic disorder [id number] Completed 200702/03/2014 RECORDED 03/03/20 08 12:17PM BY RAVI DAVIDSONATI ON/ADDEN DUM Not Available [facility] 4 05:42:32 Urinary tract infectio us disease 27982287 Completed 200702/03/2014 IMPRESSI ON: URINARY FREQUENC Y, LEFT FLANK PAIN BUT ALOS RUQ PAIN, RULE OUT UTI AND KIDNEY STONE; RECORDED 05/28/20 08 7:51AM BY TR LLAMAS, JACK ON/ADDEN DUM Not Available [facility] 4 05:42:32 Vaginiti s and vulvovag initis Completed 200702/03/2014 RECORDED 03/03/20 08 11:15AM BY RAVI KIMATI ON/ADDEN DUM Not Available [facility] 4 05:42:32 Skin lesion 48029855 Active [facility] 5 16:38:42 Asthma 390983732 Active [facility] 5 15:13:51 Notes:10/15/2013: ENDOSCOPY DATE: 2010; NORMAL; RECORDED 10/09/2013 10:45AM BY JAYSON GUZMAN MA, OFFICE VISIT COLONOSCOPY - STATUS IS INACTIVE 1999; RECORDED 10/04/2011 10:37AM BY BHUMI PORTILLO MA, ANNOTATION/ADDENDUM Problem Notes None recorded. Procedures Surgical History Date Name Laterality Status Provider Name and Address Organization Details Recorded Time 01/08/20 14 Most Recent Mammogram completed Bhumi Rolo-Pal os, [facility] 03/19/2015 14:42:26 10/25/19 14 Orthopedic Surgery completed Bhumi Rolo-Pal os, [facility] 03/19/2015 14:50:17 02/26/20 13 Date of Last Pap Smear completed Jayce Renae [facility] 01/13/2014 14:30:09 06/26/19 12 Hysterectomy completed Bhumi Rolo-Pal os, [facility] 03/19/2015 14:50:17 03/26/20 11 Orthopedic Surgery completed Bhumi Rolo-Pal os, [facility] 03/19/2015 14:42:27 10/25/19 11 Colonoscopy completed Bhumi Rolo-Pal os, [facility] 03/19/2015 14:42:27 10/25/19 08 Orthopedic Surgery completed Bhumi Rolo-Pal os, [facility] 03/19/2015 14:50:17 06/26/19 02 Eye Surgery completed Bhumi Rolo-Pal os, [facility] 03/19/2015 14:42:27 03/26/19 97 Tubal Ligation completed Bhumi Rolo-Pal os, [facility] 03/19/2015 14:42:27 Imaging Results Imaging Date Name Status LastModified by Organiz ation Details LastModified Time 01/14/2014 imaging/diagno stic result completed polo Information not available 02/12/2015 16:15:46 09/06/2014 imaging/diagno stic result completed polo [facility] Imaging Dept [address] [place] [address], [place], [address], 02/12/2015 16:15:48 03/23/2015 MAMMO, screening, digital, bilateral completed build [facility] (Centralized Electronic Ordering - All Locations) Patient Can Go To The Location Of Their Choice, [id number] 06/03/2015 04:10:42 03/24/2015 imaging/diagno stic result completed [email or web address] [facility] Orders [address], [place], [address], 03/27/2015 09:14:31 Procedure Notes None recorded. Medical Equipment None Reported. Allergies Allergen ID Allergen Name Allergen Category Reaction Reaction Severity Criticality Documentation Date Start Date Code Code System Note Provider Name and Address Organization Details Recorded Time 91558 Bactrim medicatio n vomiting Not available Not available 01/13/20142013 01678 9 [facility] 5 14:45:11 07073 Oxycontin medicatio n nausea vomiting severe severe Not available 03/19/2015 45903 6 [facility] 5 14:42:25 97383 Tylenol with Codeine medicatio n nausea vomiting severe severe Not available 03/19/2015 18259 6 [facility] 5 14:42:25 06802 tramadol Not available Not available Not available Not available 03/19/2015 27004 Rx[facility] 5 14:42:25 79778 codeine medicatio n nausea vomiting severe severe Not available 03/19/2015 2670 Rx[facility] 5 14:42:25 60999 acetamino phen / oxycodone medicatio n itching nausea vomiting moderate severe severe Not available 03/19/2015 99422 3 [facility] 5 14:42:25 64220 Abilify medicatio n dizziness Not available Not available 03/19/2015 26290 3 TraNorm TR Ag [facility] 5 14:51:54 7221 ibuprofen medicatio n headache Not available Not available 01/07/20142013 5640 RxNorm Bhumi SethNatividadShannan liang [facility] 5 14:44:59 7222 paroxetin e Not available Not available Not available Not available 01/07/20142013 80731 RxNorm [facility]humi YolyShannan liang [facility] 5 14:42:25 7223 Wellbutri n medicatio n hives Not available Not available 01/07/20142013 47447 RxNorm Bhumi UriartegiselleShannan garthTR [facility] 5 14:45:11 Medications Name Sig Start Date Stop Date Status Note LastModified by Organization Details LastModified Time synthroid 137 mcg tabs active Not Available Not Available Not Available citalopra m hydrobrom bony 20 mg tabs 1 PO DAILY active Not Available Not Available No t Available paroxetin e hcl 40 mg tabs active Not Available Not Available Not Available lorazepam 0.5 mg tabs active Not Available Not Available Not Available paroxetin e hcl 20 mg tabs 1 PO DAILY x 1 WEEK, THEN 1/2 TABLET x 1 WEEK active Not Available Not Available No t Available aripipraz ole 5 mg tabs active Not Available Not Available Not Available amphetami ne/dextro amphetami ne 30 mg cp24 active Not Available Not Available Not Available carisopro dol 350 mg tablet [facility] 12/30 completed RECORDED 03/03/20 08 11:15AM BY MARLEN Corley MD, MEDICATI ON AUTO-MIGUEL CTIVATIO N; Not Available Not Available Not Available cyclobenz aprine 10 mg tablet 2011 active Not Available Not Available Not Avai lable metformin 500 mg tablet 07/23 completed RECORDED 07/23/19 11 2:31PM BY JAYCE RENAE, OFFICE VISIT; Not Available Not Available Not Available prednison e 10 mg tablet DAILY 04/27 completed RECORDED 04/28/20 08 9:50AM BY MARLEN Corley MD, MEDICATI ON AUTO-MIGUEL CTIVATIO N;FOR DAY ONE, 3 FOR 3 DAYS, 2 FOR 3 DAYS THEN ONE FOR 3 DAYS THEN ONE EVERY OTHER DAY FOR 3 DAYS Not Available Not Available Not Available paroxetin e 10 mg tablet active Not Available Not Available Not Available trazodone 50 mg tablet QHS PRN INSOMNIA 08/09 completed RECORDED 08/09/19 13 3:55PM BY JAYCE RENAE, OFFICE VISIT; Not Available Not Available Not Available fluconazo le 150 mg tablet SUJIT AND PRN 05/20 completed RECORDED 05/21/20 07 9:22AM BY CATARINO MAKI MD, MEDICATI ON AUTO-MIGUEL CTIVATIO N; Not Available Not Available Not Available valacyclo vir 1 gram tablet THREE TIMES DAILY 03/10 completed RECORDED 03/27/20 08 3:08PM BY RAJI Diaz NP, MEDICATI ON AUTO-MIGUEL CTIVATIO N; Not Available Not Available Not Available meloxicam 15 mg tablet DAILY 01/31 completed RECORDED 05/14/20 12 10:50AM BY GRABIEL CUMMINS, MEDICATI ON AUTO-MIGUEL CTIVATIO N; Not Available Not Available Not Available prednison e 20 mg tablet DAILY 04/02 completed RECORDED 04/14/20 08 10:04AM BY MARLEN Corley MD, MEDICATI ON AUTO-MIGUEL CTIVATIO N; Not Available Not Available Not Available prednison e 5 mg tablet active Not Available Not Available Not Available Zithromax Z-Galo 250 mg tablet QD 09/15 completed RECORDED 12/11/19 09 10:20AM BY MARLEN Corley MD, MEDICATI ON AUTO-MIGUEL CTIVATIO N;2PO QD FOR 1 DAY, THEN 1 QD FOR 4 DAYS. Not Available Not Available Not Available Zyrtec 10 mg tablet QD 09/05 completed RECORDED 09/06/19 08 8:14PM BY RAJI Diaz NP, OFFICE VISIT; Not Available Not Available Not Available sulfameth oxazole 800 mg-trimet hoprim 160 mg tablet active Not Available Not Available Not Available butalbita l-acetami nophen-ca ffeine 50 mg-325 mg-40 mg tablet Q 6HRS PRN HEADACHE 04/07 completed RECORDED 04/14/20 08 10:04AM BY MARLEN Corley MD, MEDICATI ON AUTO-MIGUEL CTIVATIO N; Not Available Not Available Not Available Macrobid 100 mg capsule TWO TIMES DAILY 01/12 completed RECORDED 01/26/20 10 1:08PM BY SANTO FAIRCHILD PA-C, MEDICATI ON AUTO-MIGUEL CTIVATIO N; Not Available Not Available Not Available Adderall XR 30 mg capsule,e xtended release active Not Available Not Available Not Available Fluticaso ne Propionat e (Inhal) 50 mcg/BLIST inhl powd DAILY 10/16 completed RECORDED 12/11/19 10 1:37PM BY HAMMAD SAAVEDRA PA-C, MEDICATI ON AUTO-MIGUEL CTIVATIO N; Not Available Not Available Not Available amoxicill in 875 mg tablet BID 04/12 completed RECORDED 04/30/20 09 1:10PM BY MARLEN Corley MD, MEDICATI ON AUTO-MIGUEL CTIVATIO N; Not Available Not Available Not Available hydromorp astrid 2 mg tablet active Not Available Not Available Not Available lorazepam 0.5 mg tablet active Not Available Not Available Not Available flunisoli de 25 mcg (0.025 %) nasal spray active Not Available Not Available Not Available paroxetin e 30 mg tablet active Not Available Not Available Not Available paroxetin e 20 mg tablet DAILY active Not Available Not Available Not Available pantopraz ole 40 mg tablet,de layed release DAILY 07/23 completed RECORDED 07/23/19 11 2:31PM BY JAYCE RENAE, OFFICE VISIT; Not Available Not Available Not Available lidocaine 5 % topical patch active Not Available Not Available Not Available gabapenti n 300 mg capsule AT BEDTIME 06/13 completed RECORDED 06/14/20 12 10:41AM BY GRABIEL CUMMINS, MEDICATI ON AUTO-MIGUEL CTIVATIO N; Not Available Not Available Not Available omeprazol e 20 mg capsule,d elayed release Take 1 capsule twice a day by oral route before meals for 30 days. active Not Available Not Available No t Available gabapenti n 100 mg capsule TID 04/02 completed RECORDED 04/02/20 09 9:39AM BY BHUMI MCCOY MA, OFFICE VISIT; Not Available Not Available Not Available levofloxa ila 500 mg tablet QD 12/13 completed RECORDED 01/03/20 07 1:11PM BY VIRGILIO HERMOSILLO, MEDICATI ON AUTO-MIGUEL CTIVATIO N; Not Available Not Available Not Available paroxetin e 40 mg tablet active Not Available Not Available Not Available indometha ila ER 75 mg capsule,e xtended release active Not Available Not Available Not Available naproxen 500 mg tablet active Not Available Not Available Not Available amoxicill in 875 mg-potass ium clavulana te 125 mg tablet TWO TIMES DAILY 10/13 completed RECORDED 12/29/19 12 10:41AM BY SANTO FAIRCHILD PA-C, MEDICATI ON AUTO-MIGUEL CTIVATIO N; Not Available Not Available Not Available AcipHex 20 mg tablet,de layed release DAILY 04/02 completed RECORDED 04/02/20 09 9:39AM BY BHUMI MCCOY MA, OFFICE VISIT; Not Available Not Available Not Available nabumeton e 500 mg tablet TWO TIMES DAILY 04/28 completed RECORDED 04/28/20 08 9:56AM BY OBDULIA ST, OFFICE VISIT;GI VING PT MIGRAINE S Not Available Not Available Not Available Amphetami ne Salt Combo 10 mg tablet active Not Available Not Available No t Available paroxetin e ER 25 mg tablet,ex tended release 24 hr DAILY 09/05 completed RECORDED 09/06/19 08 8:14PM BY RAJI Diaz NP, OFFICE VISIT; Not Available Not Available Not Available paroxetin e ER 37.5 mg tablet,ex tended release 24 hr DAILY 09/05 completed RECORDED 09/06/19 08 8:14PM BY RAJI Diaz NP, OFFICE VISIT; Not Available Not Available Not Available albuterol (refill) 90 mcg/actua tion aerosol inhaler EVERY 4 HOURS PRN 2013 active RECORDED 11/22/19 14 3:27PM BY JAYCE RENAE, OFFICE VISIT; Not Available Not Available Not Available Synthroid 137 mcg tablet one a day 2014 active Not Available Not Available Not Avai lable codeine-g uaifenesi n oral syrup Q 4 HOURS PRN 06/22 completed RECORDED 07/13/19 13 12:48PM BY DOLORES SADLER MD, MEDICATI ON AUTO-MIGUEL CTIVATIO N; Not Available Not Available Not Available Amphetami ne Salt Combo 15 mg tablet active Not Available Not Available No t Available flunisoli de 29 mcg (0.025 %) nasal spray 2013 active Not Available Not Available Not Avai lable Prilosec OTC 20 mg tablet,de layed release TWO TIMES DAILY 10/15 completed RECORDED 10/16/19 14 10:56AM BY CATARINO MAKI MD, ANNOTATI ON/ADDEN DUM; Not Available Not Available Not Available etodolac TWICE A DAY 07/23 completed RECORDED 07/23/19 11 2:31PM BY JAYCE RENAE, OFFICE VISIT; Not Available Not Available Not Available spironola ctone 07/23 completed RECORDED 07/23/19 11 2:32PM BY JAYCE RENAE, OFFICE VISIT; Not Available Not Available Not Available paroxetin e HCl DAILY 04/02 completed RECORDED 04/02/20 09 9:39AM BY BHUMI MCCOY MA, OFFICE VISIT; Not Available Not Available Not Available Clindamyc in Phosphate Vaginal QID/PRN 11/15 completed RECORDED 11/16/19 07 2:24PM BY VIRGILIO HERMOSILLO, MEDICATI ON AUTO-MIGUEL CTIVATIO N; Not Available Not Available Not Available Ultram BID 06/27 completed RECORDED 06/27/19 09 10:11AM BY MARLEN Corley MD, MEDICATI ON AUTO-MIGUEL CTIVATIO N; Not Available Not Available Not Available varenicli ne tartrate 1 mg tablet BID 08/09 completed RECORDED 08/09/19 13 3:55PM BY JAYCE RENAE, OFFICE VISIT; Not Available Not Available Not Available Chantix Starting Month Galo 0.5 mg (11)-1 mg (42) tablets in dose pack BID 09/01 completed RECORDED 09/14/19 12 3:36PM BY MARLEN Corley MD, MEDICATI ON AUTO-MIGUEL CTIVATIO N; Not Available Not Available Not Available ProAir HFA 90 mcg/actua tion aerosol inhaler 2 inhalati ons every 4 hours prn 2014 active Not Available Not Available Not Avai lable milnacipr an 50 mg tablet QD 07/04 completed RECORDED 07/04/19 14 10:51AM BY JAYCE RENAE, OFFICE VISIT; Not Available Not Available Not Available milnacipr an 100 mg tablet QD 07/04 completed RECORDED 07/04/19 14 10:51AM BY JAYCE RENAE, OFFICE VISIT; Not Available Not Available Not Available Fluzone 45 mcg (15 mcg x 3)/0.5 mL intramusc ular suspensio n active Not Available Not Available Not Available Fluvirin 45 mcg (15 mcg x 3)/0.5 mL intramusc ular suspensio n active Not Available Not Available Not Available Vitals Date Recorded Oxygen saturation Oxygen saturation in Arterial blood by Pulse oximetry Body weight Body temperature Body height Body mass index (BMI) Heart rate Systolic blood pressure Diastolic blood pressure Provider Name and Address Organization Details Last Updated DateTime 4 100 % 100 % 64045.9 12063 g 98.4 [degF] 154.94 cm 33.3 kg/m2 72 /min 115 mm[Hg] 68 mm[Hg] Jayce Renae MA [facility] 4 14:30:08 Date Recorded Body weight Oxygen saturation Oxygen saturation in Arterial blood by Pulse oximetry Body height Body mass index (BMI) Body temperature Heart rate Systolic blood pressure Diastolic blood pressure Provider Name and Address Organization Details Last Updated DateTime 5 26627.6 266 g 97 % 97 % 154.94 cm 34 kg/m2 98.6 [degF] 86 /min 122 mm[Hg] 68 mm[Hg] Alexi Johnson [facility] 5 16:10:45 Date Recorded Heart rate Body temperature Oxygen saturation Oxygen saturation in Arterial blood by Pulse oximetry Body weight Body height Body mass index (BMI) Systolic blood pressure Diastolic blood pressure Provider Name and Address Organization Details Last Updated DateTime 5 96 /min 99.2 [degF] 97 % 97 % 18541.4 0371 g 157.48 cm 33.5 kg/m2 138 mm[Hg] 72 mm[Hg] Bhumi liang MA [facility] 5 14:44:19 Social History Question Answer Notes LastModified by Organizat ion Details LastModified Time Tobacco Smoking Status Current [facility]/13[facility]2014 14:23:38 Do You Have An Advance Directive? No Information not available 01/13/2014 What Is Your Level Of Alcohol Consumption? Occasional Information not available 01/13/2014 Is Blood Transfusion Acceptable In An Emergency? Yes Information not available 03/19/2015 What Is Your Level Of Caffeine Consumption? Heavy Information not available 03/19/2015 How Much Tobacco Do You Chew? None [email or web address] Information not available 01/13/2014 Are You Currently Employed? Yes Information not available 03/19/2015 Are You Deaf Or Do You Have Serious Difficulty Hearing? No [email or web address] Information not available 01/13/2014 What Type Of Diet Are You Following? REGULAR Information not available 03/19/2015 Which Illicit Or Recreational Drugs Have You Used? 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 No [email or web address] Information not available 01/13/2014 How Many Days In The Past Year Have You Had A Heavy Drinking Consumption (4+ Female, 5+ Male)? 0 [email or web address] Information not available 01/13/2014 Are There Any Guns Present In Your Home? No [email or web address] Information not available 01/13/2014 Single Or Multi-level Home/work? 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 With Others [email or web address] Information not available 01/13/2014 Do You Take Precautions To Prevent Distracted Driving? No Talks On Phone Information not available 03/19/2015 How Often Do You Need To Have Someone Help You When You Read Instructions, Pamphlets, Or Other Written Material From Your Doctor Or Pharmacy? Never Information not available 03/19/2015 Marital Status Single [email or web address] Informatio n not available 01/13/2014 How Many Children Do You Have? 3 Information not available 03/19/2015 Do You Use Protection During Sex? No Information not available 03/19/2015 Difficulty Reading? No [email or web address] Information not available 01/13/2014 Seat Belts Used Routinely Yes Information not available 03/19/2015 Are You Sexually Active? Yes Information not available 03/19/2015 Smoke Alarm In Home Yes [email or web address] Information not available 01/13/2014 At What Age Did You Start Smoking Tobacco? 19 [email or web address] Information not available 01/13/2014 Are You Passively Exposed To Smoke? Yes [email or web address] Information not available 01/13/2014 How Much Tobacco Do You Smoke? 1 PPD Information not available 03/19/2015 General Stress Level Medium Information not available 01/13/2014 Do You Use Any Illicit Or Recreational Drugs? No [email or web address] Information not available 01/13/2014 Do You Use Sunscreen Routinely? Yes Information not available 03/19/2015 How Many Years Have You Smoked Tobacco? 21 Information not available 03/19/2015 Difficulty Watching TV? No [email or web address] Information not available 01/13/2014 Sex: Unknown Functional Status Question Answer Note LastModified by Organization D etails LastModified Time Do you have difficulty walking or climbing stairs? No [email or web address] Information not available 01/13/2014 Difficulty driving at night? No [email or web address] Information not available 01/13/2014 Do you have difficulty doing errands alone? No [email or web address] Information not available 01/13/2014 Are you able to care for yourself? Yes Information n ot available 03/19/2015 Do you have difficulty dressing or bathing? Yes [email or web address] Information not available 01/13/2014 What is your exercise level? None [email or web address] Information not available 01/13/2014 Mental Status Question Answer Note LastModified by Organizat ion Details LastModified Time Do you have difficulty concentrating, remembering or making decisions? No controlled on medication [email or web address] Information not available 01/13/2014 Family History Relationship Description Onset Age of this Age Resolved Age Notes LastModified by Organization Details LastModified Time Mother Disease of liver 59 [email or web address] s Not available 03/19/2015 14:48:52 Mother Osteoporosis [email or web address] to s Not available 03/19/2015 14:48:52 Mother Arthritis 55 [email or web address] s Not available 03/19/2015 14:48:52 Father Diabetes mellitus 60 72 [email or web address] s Not available 03/19/2015 14:42:25 Father Malignant neoplasm of lung 67 72 [email or web address] s Not available 03/19/2015 14:42:25 Father Heart disease 72 [email or web address] s Not available 03/19/2015 14:48:52 Father Cerebrovascu lar accident 72 [email or web address] s Not available 03/19/2015 14:48:52 Paternal Uncle Anxiety disorder [email or web address] s Not available 03/19/2015 14:48:52 Paternal Uncle Depressive disorder [email or web address] s Not available 03/19/2015 14:48:52 Notes:No FH of breast of Col on Cancer Medical History Condition Response Coronary Artery Disease N Gout N Other N Blood Diseases Y Kidney Stones N Hyperthyroidism N Breast Cancer N mrsa exposure N Lung Disease N COPD N Depression Y Hypothyroidism Y Defects or Inherited Disease N Developmental or Behavioral Disorders N Breast Problem N Anesthesia Complications N Headaches/Migraines N Anxiety Disorder Y Varicose Veins N Muscle, Joint, or Bone Problems Y Obesity Y Vision or Eye Problems Y Arthritis N Head Injury/Concussion N Polyps N Infertility N Mental Disorder N Congenital Anomalies N Acid Reflux (GERD) Y Cancer N Stroke N ADHD Y Endometriosis N High Cholesterol N Liver Disease N Fibromyalgia Y Headaches N Kidney Disease N Heart Problems N Ear or Hearing Problems N Hospitalizations N Thyroid Problems Y GI Problems Y Developmental Delay N Acne N Eating Disorder N Skin Problems N Anemia N Constipation N Bladder Problems N Mental Illness N Diabetes N Ovarian Cancer N Bedwetting N Blood Transfusions N Heart Problems/Murmur N Seizures/Epilepsy N Tuberculosis N AIDS/HIV N Congestive Heart Failure (CHF) N Eczema N Abuse/Domestic Violence N Diverticulitis N Asthma N Allergies Y Reflux/GERD Y Hepatitis N Heart Disease N Pulmonary Embolism N Hypertension N Chicken Pox Y Autism Spectrum Disorder (ASD) N Osteoporosis N Gynecological History Statement/Question Response 07/07/2011 Sexually Active? Y STIs/STDs N Date of Last Pap Smear 02/25/2013 Sexual Problems? Y Age at Menarche 13 Most Recent Mammogram 01/07/2014 Age at First Child 17 Obstetrics History GPAL:G 0 P 0 0 0 0 Immunizations Vaccine Type Date Status Note Provider Nam e and Address Organization Details Recorded Time Influenza, split virus, trivalent, preservative 8 completed Not Available [facility] 01/07/2014 14:00:52 Influenza, split virus, trivalent, preservative 0 completed Not Available [facility] 01/07/2014 14:00:52 Novel [id number] , all formulations 0 completed Not Available [facility] 01/07/2014 14:00:52 Tdap 1 completed Not Available [facility] 01/07/2014 14:00:52 Influenza, split virus, trivalent, preservative 1 completed Not Available [facility] 01/07/2014 14:00:52 Influenza, split virus, trivalent, preservative 2 completed Not Available [facility] 01/07/2014 14:00:52 Influenza, split virus, trivalent, preservative 3 completed Not Available [facility] 01/07/2014 14:00:53 Past Encounters Encounter ID Performer Location Encounter Start Date Encounter Closed Date Diagnosis/Indication Diagnosis SNOMED-CT Code Diagnosis ICD10 Code Diagnosis Note [id number] Marlen A. Glading-Di ricki, MD Main Office [address] [place] [address] 01/13/2014 14:03:05 01/13/2014 14:56:32 Adult health examination [id number] Pt is doing very well, will start exercising but is losing weight, mood and focus are so much better on Adderall. Hypothyroidism [id number] Gastroesop hageal reflux disease [id number] Insomnia [id number] Attention deficit hyperactivity disorder [id number] doing great on meds, followed by specialist [id number] [facility] [address] [facility] [place] [address] 10/17/2006 00:00:00 [id number] [facility] [address] [facility],[address] [place] [address] 10/23/2006 00:00:00 [id number] [facility] [address] [facility],[address] [place] [address] 11/10/2006 00:00:00 10600 [facility] [address] [facility],[address] [place] [address] 11/17/2006 00:00:00 [id number] [facility]ce [address] [facility],[address] [place] [address] 12/06/2006 00:00:00 [id number] [facility] [address] [facility],[address] [place] [address] 03/01/2007 00:00:00 [id number] [facility] [address] [place] [address] 04/04/2007 00:00:00 25523 auto[facility]Comm erce [address] [facility],[address] [place] [address] 05/19/2007 00:00:00 68281 [facility] [address] [facility],[address] [place] [address] 06/06/2007 00:00:00 64692 [facility] [facility] [address] [facility],[address] [place] [address] 08/08/2007 00:00:00 52029 auto[facility] erce [address] [facility] [address] [place] [address] 09/06/2007 00:00:00 20712 [facility] [facility]ce [address] [facility] [address] [place] [address] 09/08/2007 00:00:00 28688 [facility] [address] [facility] [address] [place] [address] 10/15/2007 00:00:00 37682 [facility] [address] [facility],[address] [place] [address] 11/01/2007 00:00:00 97469 [facility] [facility] [address] [facility],[address] [place] [address] 11/14/2007 00:00:00 65567 [facility]ce [address] [facility],[address] [place] [address] 12/10/2007 00:00:00 89595 [facility] [address] [facility],[address] [place] [address] 12/11/2007 00:00:00 75367 [facility] [address] [facility],[address] [place] [address] 03/03/2008 00:00:00 69477 [facility]ce [address] [facility],[address] [place] [address] 03/28/2008 00:00:00 13760 [facility] erce [address] [facility],[address] [place] [address] 04/28/2008 00:00:00 76137 [facility] [address] [facility],[address] [place] [address] 05/28/2008 00:00:00 43461 [facility] erce [address] [facility],[address] [place] [address] 06/11/2008 00:00:00 39830 [address] [address] [place] [address] 06/20/2008 00:00:00 48791 [facility] [address] [place] [address] 06/25/2008 00:00:00 45163 auto[facility]ce [address] [facility] [address] [place] [address] 07/25/2008 00:00:00 [id number] auto[facility] erce [address] [facility] [address] [place] [address] 09/10/2008 00:00:00 23505 [facility] [address] [facility] [address] [place] [address] 12/10/2008 00:00:00 89124 auto[facility]Comm erce [address] [facility],[address] [place] [address] 02/12/2009 00:00:00 66133 autoEComm erce [address] [facility],[address] [place] [address] 04/02/2009 00:00:00 73021 autoEComm erce [address] [facility],[address] [place] [address] 04/30/2009 00:00:00 56999 auto[facility]Comm erce [address] [facility],[address] [place] [address] 07/02/2009 00:00:00 48728 autoEComm erce [address] [facility],[address] [place] [address] 07/30/2009 00:00:00 63025 autoEComm erce [address] [facility],[address] [place] [address] 09/16/2009 00:00:00 69773 auto[facility]Comm erce [address] [facility],[address] [place] [address] 12/29/2009 00:00:00 25196 autoEComm erce [address] [facility],[address] [place] [address] 01/26/2010 00:00:00 49468 [facility]ce [address] [place] [address] 03/08/2010 00:00:00 76276 [facility]ce [address] [place] [address] 07/23/2010 00:00:00 37605 [facility] [address] [place] [address] 09/20/2010 00:00:00 89360 [facility] [address] [place] [address] 02/04/2011 00:00:00 70663 autoEComm erce [address] [facility] [address] [place] [address] 03/11/2011 00:00:00 18849 autoEComm erce [address] [facility] [address] [place] [address] 08/05/2011 00:00:00 98408 auto[facility]Comm erce [address] [facility],[address] [place] [address] 09/14/2011 00:00:00 47841 autoEComm erce [address] [facility] [address] [place] [address] 10/04/2011 00:00:00 25063 autoEComm erce [address] [facility] [address] [place] [address] 01/02/2012 00:00:00 01516 autoEComm erce [address] [facility],[address] [place] [address] 05/14/2012 00:00:00 32485 autoEComm erce [address] [facility] [address] [place] [address] 06/14/2012 00:00:00 42111 autoEComm erce [address] [facility],[address] [place] [address] 08/09/2012 00:00:00 12220 autoEComm erce [address] [facility],[address] [place] [address] 10/18/2012 00:00:00 71876 [address]Comm erce [address] [place] [address] 11/08/2012 00:00:00 77469 autoEComm erce [address] [facility],[address] [place] [address] 11/22/2012 00:00:00 30152 autoEComm erce [address] [facility] [address] [place] [address] 02/18/2013 00:00:00 54282 auto[facility]Comm erce [address] [facility],[address] [place] [address] 07/04/2013 00:00:00 24840 autoEComm erce [address] [facility],[address] [place] [address] 08/21/2013 00:00:00 50353 autoEComm erce [address] [facility],[address] [place] [address] 10/09/2013 00:00:00 76131 autoEComm erce [address] [facility],[address] [place] [address] 11/21/2013 00:00:00 [id number] Marlen robison MD Main Office [address] [facility] [address] [place] [address] 02/12/2015 15:58:35 02/12/2015 16:32:48 Anxiety state [id number] not well treated, psychiatry [facility] prescribes and will start up counseling again Gastroesop hageal reflux disease 013711659 well controlled continue meds Hypothyroidism 34119286 on meds from Dr Sandhu, Skin lesion 10059194 rec urrent infected cysts, pt will see ID [id number] Marlen robison MD Main Office [address] [facility] [address] [place] [address] 03/19/2015 14:34:16 03/19/2015 15:18:14 Adult health examination 131533608 Pt is doing very well, will start exercising but is losing weight, mood and focus are so much better on Adderall. Gastroesop hageal reflux disease 161619663 well controlled continue meds Hypothyroidism 65538307 on meds from Dr Sandhu, Fibromyositis 48018282 Asthma 043759731 Tobacco user [id number] Health Concerns Section Related Observation LastModified by Organization Detai ls LastModified Time None Recorded Concern Status LastModified by Organization Details LastModified Time None Recorded Advance Directives Directive N: Payers Encounter Date Sequence Insurance Name Policy Number Policy Haley Covered Member ID Haley Member ID Guarantor Name 01/13/2014 1 [facility] (HMO) [id number] Polina Burris [id number] Polina Burris 02/12/2015 1 [facility] - MEDICAID ESSENTIAL (MEDICAID HMO) [id number] Polina Burris [id number] Polina Burris 02/12/2015 2 [place] Polina Burris [id number] Polina Burris 03/19/2015 1 [facility] - [facility]ALTH[facility] - MEDICAID ESSENTIAL (MEDICAID HMO) [id number] Polina Burris [id number] Polina Burris 03/19/2015 2 [place] Polina Burris [id number] Polina Burris Notes Date Note Type Note Provider Name and Address Organization Details Recorded Time 02/12/2015 text/html Pt is still struggling with anxiety. She is on paxil and uses lorazepam as she needs it. Pt is also treated for GERd, hypothyroid. Pt sees [facility] psychiatric provider, pt had mya recently added. She will get a new counselor due to insurance issues. PT lost her father and quit her job and partner lost his mom. Pt gets thyroid med from Dr Sandhu, her levels are labile. Pt is feeling very forgetful, needs to write everything down. Pt sleeps too much. 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 Marlen lance [facility] 02/12/2015 16:39:03 03/19/2015 text/html PT is here for a n annual exam. Marlen lance [facility] 03/19/2015 15:13:53 OBGyn Episode No OBEpisode recorded.
--- OUTSIDE RECORDS SUMMARY | 2024-10-29 20:21 | XMS_ITS | Encounter Summary ---
Author Organization [employer] Address [address] [facility] 7 [place] [address] Care Team Providers Care Utilization Specialist Name Role Phone Name, Eris FELDMAN Primary Care Provider [phone] Encounter Details Date Type Department Care Team (Late Contact Info) Description 11/25/2022 Abstract [facility] MEDICINE [address] [place] [address] [phone] Eris Chappell MD [address] [place] [address] [phone] Social History Tobacco Use Types Packs/Day Years Used Date Smoking Tobacco: Every Day Cigarettes Alcohol Use Standard Drinks/Week Comments Not Currently 0 (1 standard drink = 0.6 oz pur e alcohol) Comments Unknown Sex and Gender Information Value [...] Description 01/29/2025 3:45 PM EDT Office Visit [facility] MEDICINE [address] [place] [address] [phone] Eris Chappell MD [address] [place] [address] [phone] documented as of this encounter Procedures Procedure Name Priority Date/Time Associated Diagnosis Comments HM COLONOSCOPY Routine 01/29/2019 3:12 PM EDT documented in this encounter Results * Hm Colonoscopy (01/29/2019 3:12 PM EDT) Colonoscopy Normal Normal Narrative Ling Mckeon - 01/29/2019 3:12 PM EDT Recommended 10 year follow up Historical Provider HEALTH MAINTENANCE Final Result documented in this encounter Visit Diagnoses Not on filedocumented in this encounter Care Teams Utilization Specialist Relationship Specialty Start Date End Date Name, MD Eris [address] [place] [address] PCP - General Family Medicine 07/14/15 documented as of this encounter
--- OUTSIDE RECORDS SUMMARY | 2024-10-29 20:21 | XMS_ITS | Clinical Summary ---
Author Organization [employer] Address [address] [facility] 7 [place] [address] Care Team Providers Care Medical Anthropology Director Name Role Phone Name, Eris FELDMAN Primary Care Provider [phone] Allergies Active Allergy Reactions Criticality Noted Date Comments Acetaminophen Itching Low 11/11/2015 Apricot Flavoring Agent (Non-Screening) Hives Medium 02/02/2023 Aripiprazole Dizziness Low 10/27/2023 Bupropion Hives Medium 11/21/2013 Codeine Nausea,Vomiting Low 08/22/2023 Hydrocodone Vomiting Low 02/02/2023 Ibuprofen Headache Low 11/21/2013 Oxycodone Itching,Nausea,Vomiting Medium 02/02/2023 Sulfamethoxazole-Trimethoprim Vomiting Low 2013 Tramadol Vomiting Low 02/02/2023 Wound Dressing Adhesive Itching,Rash Low 01/12/2023 Medications amphetamine-de xtroamphetamin e (Adderall) 10 MG tablet Take 1 tablet by mouth in the morning. 07/25/19 23 Active DULoxetine (Cymbalta) [address] capsule Take 60 mg by mouth 2 times daily. 08/17/19 24 Active B Complex Vitamins (vitamin B complex) tablet Take 1 tablet by mouth in the morning. 12/10/19 23 Active topiramate (Topamax) 25 MG tablet 50 mg. 02/03/20 23 Active Blood Glucose Monitoring Suppl (Contour Next Gen Monitor) w/Device kitIndications :Type 2 diabetes mellitus without complication, without long-term current use of insulin ([facility]),Morb id obesity (CMS/HCC),Brazer Resistance charly pain of right ankle USE DIRECTED TO TEST BLOOD SUGAR ONCE DAILY 1 kit 08/23/19 24 Active glucose blood (Contour Next Test) test strip USE DIRECTED TO TEST BLOOD SUGAR ONCE DAILY 100 each 11 08/23/19 24 Active Microlet Lancets miscIndication s:Type 2 diabetes mellitus without complication, without long-term current use of insulin ([facility]),Morb id obesity ([facility]),Brazer Resistance charly pain of right ankle USE DIRECTED TO TEST BLOOD SUGAR EVERY MORNING 100 each 11 08/23/19 24 Active pen needle 32G x 4 mm miscIndication s:Type 2 diabetes mellitus without complication, without long-term current use of insulin ([facility]) Inject under the skin Once daily. Use as instructed to inject victoza once daily 100 each 3 08/23/19 24 Active ALPRAZolam (Xanax) 0.5 MG tablet 02/20/20 24 Active traZODone (Desyrel) 50 MG tablet 02/20/20 24 Active cholecalcifero l (Vitamin D-3) 25 MCG (1000 UT) tablet Take 1 tablet (25 mcg) by mouth Once per day. 30 tablet 11 03/20/20 24 025 Active omeprazole (PriLOSEC) [address] capsule TAKE 1 CAPSULE BY MOUTH BEFORE BREAKFAST. 90 capsule 3 04/30/20 24 Active Dulaglutide (Trulicity) 1.5 MG/0.5ML solution auto-injectorI ndications:Typ e 2 diabetes mellitus without complication, without long-term current use of insulin ([facility]) Inject 1.5 mg under the skin 1 (one) time per week. 2 mL 3 10/03/19 25 025 Active lidocaine (Lidoderm) 5 % patchIndicatio ns:Chronic bilateral low back pain with right-sided sciatica Apply 1 patch topically Once per day. Remove & discard patch within 12 hours or as directed by . 30 patch 1 10/03/19 25 025 Active levothyroxine (Synthroid, Levoxyl) 112 MCG tablet TAKE 1 TABLET BY MOUTH EACH MORNING BEFORE BREAKFAST 90 tablet 1 10/23/19 25 Active Adderall XR 30 MG 24 hr capsule 06/26/19 17 Active levothyroxine (Synthroid, Levoxyl) 112 MCG tablet TAKE 1 TABLET BY MOUTH EACH MORNING BEFORE BREAKFAST 30 tablet 8 10/17/19 24 025 Discontinued Dulaglutide (Trulicity) 1.5 MG/0.5ML solution auto-injectorI ndications:Typ e 2 diabetes mellitus without complication, without long-term current use of insulin ([facility]) Inject 0.5 mL (1.5 mg) under the skin 1 (one) time per week. 2 mL 3 06/07/20 24 025 Discontinued(Re order (will not trigger notification to Pharmacy)) Active Problems Problem Noted Date Diagnosed Date Low vitamin D level 03/20/2024 Achilles tendinitis, right leg 08/22/2023 Asthma 08/22/2023 B12 deficiency 08/22/2023 Coccyx pain 08/22/2023 Food allergy 08/22/2023 Peroneal tendonitis of right lower leg Lumbar radiculopathy 08/22/2023 Type 2 diabetes mellitus wit hout complication, without long-term current use of insulin 08/22/2023 Chronic ankle pain 01/12/2023 Diverticular disease 01/12/2023 Internal hemorrhoids 01/12/2023 Hyperplastic polyp of large intestine 09/19/2022 Hypercholesterolemia 09/19/2022 Obesity 07/17/2018 Tremor 02/12/2018 Epigastric pain 09/25/2017 Vertigo 09/25/2017 Neck pain 05/10/2016 Acquired hypothyroidism 08/03/2015 H/O: hysterectomy 08/03/2015 Depressive disorder 08/03/2015 Heartburn 08/03/2015 Osteoarthritis 08/03/2015 Anxiety state 11/22/2013 Overview (08/22/2023): IMPRESSION: ON MEDS AND IN COUNSELING; RECORDED 11/22/2013 1:31PM BY YAAKOV UNGER MD, OFFICE VISIT Attention deficit hyperactivity disorder 014 Overview (08/22/2023): STORY: DIAGNOSED 10/2013; IMPRESSION: ON MEDS; RECORDED 11/22/2013 1:31PM BY YAAKOV UNGER MD, OFFICE VISIT Facial nerve disorder 11/21/2013 Overview (08/22/2023): IMPRESSION: UNCLEAR CAUSE. DOES NOT FOLLOW TRIGEMINAL NEURALGIA PATTERN. START GABAPENTIN, REFER TO NEURO; RECORDED 11/21/2013 3:27PM BY JAYCE RENAE, OFFICE VISIT Fibromyositis 11/21/2013 Overview (08/22/2023): IMPRESSION: REALLY HELPED WITH SAVELLA INITIALLY, NOW WITH INCREE IN PAIN INCREASE TO 100MG IN AM AND 5 MG PM, NEEDS DAILY EXERCISE AND STRETCHING; RECORDED 11/21/2013 3:27PM BY JAYCE RENAE, OFFICE VISIT Gastroesophageal reflux disease 11/21/2013 Overview (08/22/2023): RECORDED 11/21/2013 3:27PM BY JAYCE RENAE, OFFICE VISIT Insomnia 11/21/2013 Overview (08/22/2023): IMPRESSION: BETTER WITH LORAZEPAM CONTINUE MED, SET UP COUNSELING; RECORDED 11/21/2013 3:27PM BY JAYCE RENAE, OFFICE VISIT Irritable bowel syndrome 11/21/2013 Overview (08/22/2023): RECORDED 11/21/2013 3:27PM BY JAYCE RENAE, OFFICE VISIT Migraine 11/21/2013 Overview (08/22/2023): RECORDED 11/21/2013 3:27PM BY JAYCE RENAE, OFFICE VISIT Posttraumatic stress disorder 11/21/2013 Overview (08/22/2023): DIAGNOSED 10/2013; RECORDED 11/21/2013 3:39PM BY JAYCE RENAE, OFFICE VISIT Tobacco dependence syndrome 11/21/2013 Overview (08/22/2023): RECORDED 11/21/2013 3:40PM BY JAYCE RENAE, OFFICE VISIT Low back pain, unspecified 11/21/2013 Overview (10/27/2023): IMPRESSION: RESOLVED, WAS IN PT BUT MUCH BETTER.; RECORDED 11/21/2013 3:27PM BY JAYCE RENAE, OFFICE VISIT Abdominal pain 10/09/2013 Overview (08/22/2023): IMPRESSION: CT AND LABS REVIEWED, EXAM AND HX CONSISTENT WITH CONSTIPATION, TIRLA OF MIRALAX BID UNTIL CLEANED OUT, RETURN IF ANYTHING IS WORSENING; RECORDED 10/09/2013 10:45AM BY JAYSON GUZMAN MA, ANNOTATION/ADDENDUM Dysphagia 05/14/2012 Overview (08/22/2023): RECORDED 05/14/2012 10:53AM BY HIRA PORTILLO MA, ANNOTATION/ADDENDUM Chronic sinusitis 05/14/2012 Overview (08/22/2023): RECORDED 05/14/2012 10:53AM BY HIRA PORTILLO MA, ANNOTATION/ADDENDUM Inflammation of sacroiliac joint 05/14/2012 Overview (08/22/2023): RECORDED 05/14/2012 10:53AM BY HIRA PORTILLO MA, ANNOTATION/ADDENDUM Sciatica 05/14/2012 Overview (08/22/2023): RECORDED 05/14/2012 10:53AM BY HIRA PORTILLO MA, ANNOTATION/ADDENDUM Otalgia 05/14/2012 Overview (10/27/2023): RECORDED 05/14/2012 10:53AM BY HIRA PORTILLO MA, ANNOTATION/ADDENDUM Allergic rhinitis 10/04/2011 Overview (08/22/2023): RECORDED 10/04/2011 10:39AM BY HIRA PORTILLO MA, ANNOTATION/ADDENDUM RECORDED 11/21/2013 3:27PM BY JAYCE RENAE, OFFICE VISIT Pain in limb 04/02/2009 Overview (08/22/2023): IMPRESSION: BILAT LOWER LEGS, CHECK THYROID AND GLUCOSE, TRY LYRICA; RECORDED 04/02/2009 9:04AM BY HIRA PORTILLO MA, ANNOTATION/ADDENDUM Constipation 03/03/2008 Overview (08/22/2023): IMPRESSION: RESOLVED WITH DIET CHANGES, NO PAIN; RECORDED 03/03/2008 12:17PM BY SD KEMP, ANNOTATION/ADDENDUM Pruritic disorder 03/03/2008 Overview (08/22/2023): RECORDED 03/03/2008 12:17PM BY SD KEMP, ANNOTATION/ADDENDUM Lumbar sprain 03/03/2008 Overview (08/22/2023): IMPRESSION: WITH LEFT RADICULOPATHIC PAIN; RECORDED 03/03/2008 12:17PM BY SD KEMP, ANNOTATION/ADDENDUM Resolved Problems Problem Noted Date Diagnosed Date Resolved Date Anemia 08/22/2023 08/22/2023 Labial abscess 08/22/2023 08/22/2023 Skin lesion 08/22/2023 08/22/2023 Prediabetes 09/19/2022 01/16/2023 Cutaneous abscess 04/16/2018 08/22/2023 Knee pain 03/15/2016 08/22/2023 Palpitations 11/22/2013 08/22/2023 Overview (08/22/2023): IMPRESSION: EKG IS NL,WILL SEND IT TO PSYCHIATRIST.; RECORDED 11/22/2013 1:31PM BY YAAKOV UNGER MD, OFFICE VISIT Tobacco user 11/21/2013 08/22/2023 Overview (08/22/2023): RECORDED 11/21/2013 3:27PM BY JAYCE RENAE, OFFICE VISIT Wheezing 11/21/2013 08/22/2023 Overview (08/22/2023): RECORDED 11/21/2013 3:27PM BY JAYCE RENAE, OFFICE VISIT Hypothyroidism 11/21/2013 08/22/2023 Overview (08/22/2023): IMPRESSION: CONTINUE MEDS, LEVLE WELL CONTROLLED WITH DR SANDHU; RECORDED 11/21/2013 3:27PM BY JAYCE RENAE, OFFICE VISIT Blood in urine 10/09/2013 08/22/2023 Overview (08/22/2023): IMPRESSION: NO BLOOD IN URINE CHECK FOR INFECTION BUT VERY UNLIKELY; RECORDED 10/09/2013 10:45AM BY JAYSON GUZMAN MA, ANNOTATION/ADDENDUM Cough 10/09/2013 08/22/2023 Overview (08/22/2023): IMPRESSION: POST VIRAL, MILD NO SIGNS OF ILLNESS GAVE SAMPLE OF ADVAIR TO TRY TO HELP WITH COUGH, NOT INTERESTED IN ROBITUSSIN WITH CODEINE, CHANGE TO ZYRTEC, CALL IF NOT IMPROVED; RECORDED 10/09/2013 10:45AM BY JAYSON GUZMAN MA, ANNOTATION/ADDENDUM Amnesia 11/08/2012 08/22/2023 Overview (08/22/2023): IMPRESSION: EVAL BY PSYCHAITRY; RECORDED 11/08/2012 10:28AM BY JAYSON GUZMAN MA, ANNOTATION/ADDENDUM Attention disturbance 11/08/20122023 Overview (08/22/2023): IMPRESSION: PT NEEDS EVAL FOR ADHD, SHE WILL SET UP APPT WITH A PSYCHIATRIST; RECORDED 11/08/2012 10:28AM BY JAYSON GUZMAN MA, ANNOTATION/ADDENDUM Acute upper respiratory infection 08/09/2012 08/22/2023 Overview (08/22/2023): IMPRESSION: ENCOURAGE REST AND HYDRATION.; RECORDED 11/21/2013 3:27PM BY JAYCE RENAE, OFFICE VISIT RECORDED 08/09/2012 3:43PM BY JAYCE RENAE, ANNOTATION/ADDENDUM Cellulitis 05/14/2012 08/22/2023 Overview (08/22/2023): RECORDED 05/14/2012 10:53AM BY HIRA PORTILLO MA, ANNOTATION/ADDENDUM Cyst of eyelid 05/14/2012 08/22/2023 Overview (08/22/2023): RECORDED 05/14/2012 10:53AM BY HIRA PORTILLO MA, ANNOTATION/ADDENDUM Acute nonsuppurative otitis media 04/30/2009 08/22/2023 Overview (08/22/2023): IMPRESSION: RIGHT OM, TX BELOW, MOTRIN OR TYLENOL AND REST. CALL IF NOT BETTER; RECORDED 04/30/2009 2:43PM BY HIRA PORTILLO MA, ANNOTATION/ADDENDUM Malaise and fatigue 04/02/2009 08/22/19 24 Overview (08/22/2023): IMPRESSION: BILAT LOWERLEG PAIN, RELIEVED WITH EPIDURAL THEN THEY RETURN WHEN WEARS OFF, RANDOM SUGAR TODAY 101, WILL CHECK FASTING SUGAR; RECORDED 04/02/2009 9:04AM BY HIRA PORTILLO MA, ANNOTATION/ADDENDUM Acute bronchitis 02/12/2009 08/22/2023 Overview (08/22/2023): IMPRESSION: PRODUCTIVE COUGH AND WHEEZING, IS A SMOKER, TREAT WITH ZPAK, CALL IF NOT BETTER.I GVE A PROAIR INHALER TO PT FOR SOME WHEEZING AND OUT OF WORK NOTE.; RECORDED 02/12/2009 11:06AM BY JAYCE RENAE, ANNOTATION/ADDENDUM Acute pharyngitis 07/25/2008 08/22/2023 Overview (08/22/2023): RECORDED 07/25/2008 12:21PM BY TR LLAMAS, ANNOTATION/ADDENDUM Pain in thoracic spine 05/28/200808/22 Overview (08/22/2023): RECORDED 05/28/2008 7:51AM BY TR LLAMAS, NATI/ADDENDUM Urinary tract infectious disease 05/28/2008 08/22/2023 Overview (08/22/2023): IMPRESSION: URINARY FREQUENCY, LEFT FLANK PAIN BUT ALOS RUQ PAIN, RULE OUT UTI AND KIDNEY STONE; RECORDED 05/28/2008 7:51AM BY TR LLAMAS, ANNOTATION/ADDENDUM Carbuncle of skin and/or subcutaneous tissue 8 08/22/2023 Overview (08/22/2023): IMPRESSION: R INGUINAL FOLD; RECORDED 03/28/2008 9:38AM BY OBDULIA ST, ANNOTATION/ADDENDUM Chest pain 03/03/2008 08/22/2023 Overview (08/22/2023): RECORDED 03/03/2008 12:17PM BY SD KEMP, ANNOTATION/ADDENDUM Influenza with non-respiratory manifestation 8 08/22/2023 Overview (08/22/2023): RECORDED 03/03/2008 12:17PM BY SD KEMP, ANNOTATION/ADDENDUM Encounters Date Type Department Care Team Description 10/25/2024 Telephone [facility] [place] [address] Eris Chappell MD chartprep 10/24/2024 Travel 10/21/2024 Refill [facility] [place] [address] Eris Chappell MD 10/10/2024 Telephone [facility] [place] [address] Maude Horton MA december recalls 10/03/2024 Telephone [facility] [place] [place] [address] Maude Horton MA faxed - Lung screening 10/02/2024 4:00 PM EDT Office Visit [facility] [place] [address] Eris Chappell MD Type 2 diabetes mellitus without complication, without long-term current use of insulin (CMS/HCC) (Primary Dx); Morbid obesity (CMS/HCC); Acquired hypothyroidism; Elevated blood pressure reading; Low vitamin D level; Encounter for screening mammogram for malignant neoplasm of breast; Tobacco dependence syndrome; Chronic bilateral low back pain with right-sided sciatica 10/02/2024 Travel 09/25/2024 Travel from Last 3 Months Immunizations Name Administration Dates Next Due Influenza injectable quadriv alent preservative free 03/15/2016,08/03/2015 Influenza, IIV3, injectable 03/26/2013,1 ,03/26/2011,07/03,04/03/2008 Novel Grzoheyud-P2H0-11, all formulations 07/03/2009 Pneumococcal Polysaccharide PPSV23 08/03/2015 Tdap 04/16/2018,07/23/2010 Social History Tobacco Use Types Packs/Day Years Used Date Smoking Tobacco: Every Day Cigarettes Tobacco Cessation:Ready to Q uit: Not Asked; Counseling Given: Not Answered Comments:vape Alcohol Use Standard Drinks/Week Comments Not [...] Orientation Straight 01/11/2023 10 :54 AM EDT Last Filed Vital Signs Vital Sign Reading Time Taken Comments Blood Pressure 118/79 10/02/2024 4:04 PM EDT Pulse 109 10/02/2024 4:04 PM EDT Temperature 36.4 ??C (97.5 ??F) 10/02/2024 4:04 PM ED T Respiratory Rate 14 10/02/2024 4:04 PM EDT Oxygen Saturation 95% 10/02/2024 4:04 PM EDT Inhaled Oxygen Concentration - - Weight 105 kg (230 lb 9.6 oz) 10/02/2024 4:04 PM EDT Height 157.5 cm (5' 2 ) 10/02/2024 4:04 PM EDT Body Mass Index 42.18 10/02/2024 4:04 PM EDT Plan of Treatment Upcoming Encounters Date Type Department Care Team (Late st Contact Info) Description 01/29/2025 3:45 PM EDT Office Visit [facility] [address] [place] [phone] Name, MD Eris [address] [place] [address] Health Maintenance Due Date Last Done Comments CT Colonography 1974 FIT DNA/Cologuard 1974 FIT 1974 FOBT 1974 HIV Screening 1974 Sigmoidoscopy 1974 Diabetes: Foot Exam 01/04/1984 Eye Exam 01/04/1984 Family Planning (PISQ) 1989 Hepatitis C Screening 01/04/1992 Diabetes: Urine Protein Screening 1993 Hepatitis B Vaccines (1 of 3 - 19+ 3-dose series) 1993 Pap Smear 1995 Pneumococcal Vaccine: 50+ Years (2 of 2 - PCV) 08/03/2016 08/03/2015 Cervical Cancer Screening 04/26/2022 HPV/Cotest 04/26/2022 04/26/2017 Lipid Panel 07/19/2022 07/19/2021, 05/04/2021 Mammogram 10/20/2023 10/19/2021, 10/25, 11/20/2018 Zoster Vaccines (1 of 2) 01/04/2024 COVID-19 Vaccine ( - season) 2024 06/21/2021, 05/28/2021 Influenza Vaccine (#1) 2024 6, 08/03/2015, 03/26/2013, Additional history exists Diabetes: Hemoglobin A1C 04/03/2025 025, 03/04/2024, 08/22/2023, Additional history exists Alcohol/Substance Use Screening 06/07/2025 06/07/2024 Depression Screening 06/07/2025 06/07/2024, 06/07/20 SDOH Screening 06/07/2025 06/07/2024 Tobacco Screening 10/02/2025 10/02/2024 DTaP/Tdap/Td Vaccines (3 - Td or Tdap) 04/16/2028 04/16/2018, 07/23/2010 Colonoscopy 01/29/2029 01/29/2019 Colorectal Cancer Screening 01/29/2029 RSV Patients and Patients Aged 60 years or older (1 - 1-dose 75+ series) 2049 HIB Vaccines Aged Out No longer eligi ble based on patient's age to complete this topic HPV Vaccines Aged Out No longer eligi ble based on patient's age to complete this topic Hepatitis A Vaccines Aged Out No long er eligible based on patient's age to complete this topic IPV Vaccines Aged Out No longer eligi ble based on patient's age to complete this topic Meningococcal Vaccine Aged Out No lasha masha eligible based on patient's age to complete this topic RSV under 20 months Aged Out No longe r eligible based on patient's age to complete this topic Rotavirus Vaccines Aged Out No longer eligible based on patient's age to complete this topic Procedures Procedure Name Priority Date/Time Associated Diagnosis Comments POCT GLYCATED HEMOGLOBIN, TOTAL Routine 10/02/2024 4:10 PM EDT Type 2 diabetes mellitus without complication, without long-term current use of insulin ([facility]) POCT GLUCOSE Routine 10/02/2024 4:09 PM EDT Type 2 diabetes mellitus without complication, without long-term current use of insulin ([facility]) MAMMOGRAM GENERIC Routine 10/19/2021 3:3 0 PM EDT [facility] HISTORICAL LIPID PANEL Routine 07/19/2021 6:45 AM EST HM COLONOSCOPY Routine 01/29/2019 3:[address] [facility] HISTORICAL HPV MRNA E6/E7 Routine 04/26/2017 10:15 AM EDT from Last 3 Months or Most Recently Relevant to Health Maintenance Results * (ABNORMAL) POCT HGB A1C (10/02/2024 4:10 PM EDT) Hemoglobin A1C 6.7(A) 4.0 - 6.0 % QC Media Lot # [id number] Lot# Expiration Date [id number] Blood 10/02/2024 4:10 PM EDT us Eris Chappell MD POINT OF CARE TEST ENTER/EDIT OR DERABLES Final Result * POCT Glucose (10/02/2024 4:09 PM EDT) Glucose Blood, POC 138 60 - 200 mg/dL QC Media Lot # [id number] Lot# Expiration Date [id number] Blood Capillary blood specimen / Unknown 10/02/2024 4:09 PM EDT us Eris Chappell MD POINT OF CARE TEST ENTER/EDIT OR DERABLES Final Result * Mammography Report 1 (10/19/2021 3:30 PM EDT) Anatomical Region Laterality Modality Breast Bilateral Mammography 10/19/2021 3:30 PM EDT Narrative 10/21/2021 1:24 PM EDT Refer to the Notes tab for result details [facility] Procedure: Mammography Report 1 Procedure Note Provider, Jeff, - 09/18/2022 Refer to the Notes tab for result details [facility] Procedure: Mammography Report 1 us Eris Name MD STEPHENS BI PROCEDURES Final Result * LIPID PANEL (07/19/2021 6:45 AM EST) Cholesterol 288 mg/dL [facility] Comment: Desirable Cholesterol: ?less than 200 mg/dL Borderline High Cholesterol: ??200-239 mg/dL High Cholesterol: ? greater than 239 mg/dL HDL Cholesterol 35 mg/dL [facility] Comment: Desirable HDL: ??greater than 40 mg/dL ?? Note: This HDL assay may give artificially ? low results in patients with liver disease. LDL Cholesterol Calculated 211 mg/dl [facility] Comment: Desirable LDL: ? less than 100 mg/dL Near Optimal/Above Optimal LDL: ??110-129 mg/dL Borderline High LDL: ? 130-159 mg/dL High LDL: ?160-189 mg/dL Very High LDL: ? greater than or equal to ?190 mg/dL Triglycerides 214 mg/dL [facility] Comment: Desirable Triglyceride: ? less than 150 mg/dL Borderline High Triglyceride ??150-199 mg/dL High Triglyceride: ?200-499 mg/dL Very High Triglyceride: ? greater than or equal to ? 5OO mg/dL 07/19/2021 6:45 AM EST Eris Chappell MD HISTORICAL/NON ORDERABLE LABS Fi nal Result Performing Organization Address [facility]/ZIP Co de Phone Number [facility] [address] [place] [address], * Hm Colonoscopy (01/29/2019 3:12 PM EDT) Colonoscopy Normal Normal Narrative Ling Mckeon - 01/29/2019 3:12 PM EDT Recommended 10 year follow up Historical Provider MD HEALTH MAINTENANCE Final Result * HPV mRNA E6/E7 (04/26/2017 10:15 AM EDT) HPV mRNA E6/E7 Not Detected NOT DETECTED [facility] Comment: This test was performed using the APTIMA(R) HPV Assay ([employer] This assay detects E6/E7 viral messenger RNA (mRNA) from 14 high-risk HPV types (16,18,31,33,35,39,45,51, 52,56,58,59,66,68). For additional information please refer to: http://education.Singular/faq/HZL827r2 (This link is being provided for informational/ educational purposes only.) Test Performed by [facility], [facility], [address] [place] [address] John Ji M.D., Ph.D., Director of Laboratories , [facility] [id number] Please note: ??Effective 03/07/2016, HPV testing will be performed using [employer]'s APTIMA test which targets mRNA. Detecting mRNA instead of DNA, as in older methods, offers significant improvements in specificity. 04/26/2017 10:1 5 AM EDT Tamia Barger CNM HISTORICAL/NON ORDERABLE LABS Final Result Performing Organization Address [facility]/ZIP Co de Phone Number [facility] [address] [place] [address], from Last 3 Months or Most Recently Relevant to Health Maintenance Insurance [employer] Care Teams Medical Anthropology Director Relationship Specialty Start Date End Date Name, MD Eris [address] [place] [id number] PCP - General Family Medicine 07/14/15
[2024-10-29 20:26] LABS: MANUAL DIFF FLAG NO
[2024-10-29 20:27] LABS: Basophils Percent Auto 0.2 % (0-2); Eosinophils Absolute Auto 0.6 X10*3/uL (0.0-0.4); Eosinophils Percent Auto 6.1 % (0-4); Hematocrit 36.9 % (37.0-47.0); Hemoglobin 12.2 g/dl (12.0-16.0); Imm Gran Abs Auto 0.07 X10*3/uL (0.00-0.03); Imm Gran Pct Auto 0.7 % (0.0-0.4); Lymphocytes Absolute Auto 3.1 X10*3/uL (1.2-4.9); Lymphocytes Percent Auto 31.2 % (20-40); Mean Corpuscular HGB Conc 33.1 g/dl (31.0-35.0); Mean Corpuscular Hemoglobin 27.8 pg (27.0-33.0); Mean Corpuscular Volume 84.1 fL (80.0-98.0); Mean Platelet Volume 9.5 fL (9.4-12.3); Monocytes Absolute Auto 0.4 X10*3/uL (0.1-1.2); Neutrophils Absolute Auto 5.8 x10*3/uL (2.0-8.3); Neutrophils Percent Auto 57.8 % (45-73); Platelet Count 379 X10*3/uL (160-400); Red Blood Count 4.39 X10*6/uL (4.20-5.50); Red Cell Distribution Width 13.6 % (11.0-16.0)
[2024-10-29 21:03] LABS: Alanine Aminotransferase 45 U/L (0-31); Albumin Level 4.4 g/dL (3.5-5.0); Alkaline Phosphatase 100 U/L (39-117); Anion Gap 14 (12-20); Aspartate Amino Transferase 36 U/L (5-31); Bilirubin Total 0.3 mg/dL (0.0-1.0); Blood Urea Nitrogen 12 mg/dL (9-16); Calcium 9.3 mg/dL (8.4-10.2); Carbon Dioxide 24 mmol/L (22-29); Chloride 108 mmol/L (96-108); Creatinine Clr Calc Pharmacy 73.3; Estimated Glomerular Filt Rate 56; Glucose Random 126 mg/dL (60-115); HCG Quantitative 3 mIU/mL; Lipase 11 U/L (8-78); Potassium 3.4 mmol/L (3.3-5.1); Sodium 143 mmol/L (135-145); Total Protein 7.9 g/dL (6.5-8.0)
[2024-10-29 23:11] VITALS: BP 118/58; PULSE 63; RESP 20; TEMP 36.6; O2SAT 95
[2024-10-29] MEDS: 0.9 % Sodium Chloride 1,000 ML 999 ML IV (23:15)
[2024-10-29] MEDS: ondansetron HCL 4 MG/2 ML VIAL IVPUSH (23:15)
--- NOTE | 2024-10-29 23:19 | PC.NURSE ---
Pt to imaging
[2024-10-29] MEDS: iohexoL 350 MG/ML 100 ML INFUS..BTL IV (23:23)
--- NOTE | 2024-10-30 00:43 | PC.NURSE ---
Urine collected and sent to lab. Pt denies any other needs at this time.
[2024-10-30 00:48] LABS: Appearance Urine Clear; Color Urine Yellow; Glucose Urine UA Negative (Negative); Leukocyte Esterase Urine Negative (Negative); Nitrite Urine Negative (Negative); Specific Gravity - Urine >= 1.030 (1.005-1.025); Urine Blood Negative (Negative); Urine Ketones Negative (Negative); Urine Protein Trace mg/dL (Neg-Trace)
[2024-10-30 00:49] LABS: UPreg QC Valid YES; Urine Pregnancy NEGATIVE (NEGATIVE)
[2024-10-30 01:50] VITALS: BP 129/80; PULSE 66; RESP 20; TEMP 36.8; O2SAT 96
[2024-10-30 02:03] VITALS: BP 129/80; PULSE 66; RESP 20; TEMP 36.8; O2SAT 96
== END 2024-10-30 02:03 | disposition home or self-care (01) ==
PROVIDERS: Physician Assistant; Emergency Provider Internal Medicine; PCP Internal Medicine Geriatric Medicine
DX: R10.9 Unspecified abdominal pain (principal); R19.7 Diarrhea, unspecified; R11.2 Nausea with vomiting, unspecified; R10.31 Right lower quadrant pain; Z87.891 Personal history of nicotine dependence
CPT/HCPCS: 36415; 74177; 80053; 81003; 81025; 83690; 84702; 85025; 96361; 96374; 99284; J2405; Q9967

== ENCOUNTER → 2024-10-29 23:02 | Outpatient (BNV) | payer OTHER, SELFPAY | PROVIDERS: Emergency Provider Internal Medicine; PCP Internal Medicine Geriatric Medicine; Visit Provider Radiology Diagnostic Radiology | DX: K76.0 Fatty (change of) liver, not elsewhere classified (principal); R16.0 Hepatomegaly, not elsewhere classified | CPT/HCPCS: 74177 ==

== ENCOUNTER 2024-11-08 10:57 | Outpatient (AMB) | payer OTHER, SELFPAY ==
--- NOTE | 2024-11-08 08:00 | MHC.OFFVIS ---
Intake Visit Reasons: Former Smoker Allergies bupropion [From WELLBUTRIN] Allergy (Severe, Verified 10/29/24 20:04) HIVES hydrocodone [From VICODIN] Allergy (Severe, Verified 10/29/24 20:04) VOMITING oxycodone [From OXYCONTIN] Allergy (Severe, Verified 10/29/24 20:04) VOMITING, itching tramadol [TRAMADOL] Allergy (Severe, Verified 10/29/24 20:04) VOMITING egg Allergy (Intermediate, Verified 10/29/24 20:04) Stomach Upset adhesive tape Allergy (Mild, Verified 10/29/24 20:04) Rash APRICOT Allergy (Severe, Uncoded 03/03/23 09:40) HIVES NARCOTICS Allergy (Severe, Uncoded 03/03/23 09:40) VOMITING HPI HPI Former Smoker: Details: Initial visit for this 49yo smoker with a 75PYH. Patient started smoking at age 14 for 33 years at 2-3ppd. She quit cigarets 2 years ago and switch to vape . Denies marijuana use. Denies second hand smoke exposure. Denies exposure to chemicals or substances like asbestos. . Reports family history of lung cancer. Father age 71. Denies personal history of cancers. Denies chest CT in last year. . Denies recent travel outside the [place]. Denies recent respiratory illness or recent hospitalization for respiratory issues. Denies testing positive for COVID. Admits receiving COVID Vaccine. . Denies fever, chills, new/worsening cough, hemoptysis, hoarseness or dysphagia. Denies significant chest pain, significant dyspnea or unintentional weight loss. Patient Lung Cancer Screening Questionnaire reviewed with patient by provider. . Shared Decision Making Completed. Patient meets criteria. Discussed in detail with patient, the risk vs benefit of LDCT screening. Patient consents to proceed with scan. Discussed smoking cessation. [facility] Medical History (Updated 11/08/24 @ 11:24 by Kiah Gross PA-C) Personal history of nicotine dependence History of postoperative nausea and vomiting B12 deficiency Lumbar radiculopathy Anemia Labial abscess Hx of pilonidal cyst Surgical History (Updated 11/08/24 @ 11:20 by Kiah Gross PA-C) History of colonoscopy History of esophagogastroduodenoscopy (EGD) History of abdominoplasty History of hysterectomy History of shoulder surgery History of elbow surgery History of hand surgery Family History Brother HTN (hypertension) Brother HTN (hypertension) Father HTN (hypertension) Social History (Updated 11/08/24 @ 11:24 by Kiah Gross PA-C) Patient Tobacco Use Status: Former Tobacco user Tobacco use type: Cigarette Years Smoked: (onset 14yo, 2-3ppd x 33yrs, 75pyh - quit 2022 - now vaping) e-Cigarette/Vaping Use: Currently Using 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 - Patient meets criteria for LDCT for lung cancer screening purposes and is asymptomatic. - Smoking cessation counseling offered. Patients can always call [phone]. - Will arrange for a LDCT scan of the chest for screening purposes at [facility]. - Risks, benefits, and alternatives were discussed in detail and the patient agrees to proceed. - Risks discussed include but are not limited to: radiation exposure, anxiety during testing and while awaiting results, false negatives, false positives and possibility of additional intervention such as further imaging or surgical procedures for benign disease. - Benefits are obviously detection of lung cancer at an early stage which can lead to improved outcomes. - Discussed the importance of screening program compliance with adherence to yearly LDCT scan as scheduled - or sooner interval scans for personalized screening regimen. - Discussed follow up plan. Our office will send a letter discussing results and if needed set up phone call and office visit based on CT findings. - Patient educated on results categorization and the management decisions for suspicious findings potentially found on the screening LDCT scan. Any patient with a Lung RADS score of 3 or 4 will be reviewed by a multidisciplinary team at [facility] to form a plan of action in regards to scan findings. - If further work up is warranted for a suspicious lung finding this will be followed by the Lung Cancer Screening program in conjunction with the Thoracic Surgery Department at [facility]. - A copy of the office note and LDCT will be sent to the patient's PCP - as well as documentation on any associated further plans of care. - Incidental findings on LDCT are the PCP's responsibility. These findings are indicated with an S finding on the LDCT Assessment. A note discussing the findings will be sent to the PCP who is then responsible for further management. - All questions answered.? Coding Level of Care Code Lung Cancer Screening G0296 Diagnoses Personal history of nicotine dependence Z87.891
--- OUTSIDE RECORDS SUMMARY | 2024-11-08 11:28 | XMS_ITS | Data Portability ---
Author Organization [facility], Main Office Address [address] [facility] [address] [place] [id number] Care Team Providers Care Cable Installer Name Role Phone MARLEN FELIX Primary Care Provider MORRIS MOORE OTHER Assessment No assessment recorded. Plan of Treatment Reminders Order Date Submit Date Provider Last Modified By Organization Details Last Modified Time Details Appointments None record ed. Lab T4, free, serum 2014 015 [email or web address] Not available 6 10:08:54 TSH, serum or plasma 2014 015 [email or web address] Not available 6 10:08:54 Referral infect ious diseas e specia list referr al 2014 015 jose carlos Espino MD, [address] [place] [address], [address], 5 11:59:47 Procedures None record ed. Surgeries [...] hyperactivity disorder (ADHD) in adults: care instructions [email or web address] Not available 01/14/2014 09:33:17 02/12/2015 [id number] anxiety disorder : care instructions [email or web address] Not available 02/12/2015 16:42:05 gastroesophageal reflux disease (GERD): care instructions [email or web address] Not available 02/12/2015 16:42:06 hypothyroidism: care instructions [email or web address] Not available 02/12/2015 16:42:06 skin lesions: ca re instructions [email or web address] Not available 02/12/2015 16:42:06 03/19/2015 [id number] controlling your asthma: care instructions [email or web address] Not available 03/19/2015 15:17:18 learning about asthma [email or web address] Not available 03/19/2015 15:17:19 smoking cessatio n counseling, greater than 3 minutes up to 10 minutes* [email or web address] Not available 03/23/2015 13:40:05 fibromyalgia: ca re instructions Not available 03/19/2015 15:17:18 gastroesophageal reflux disease (GERD): care instructions [email or web address] Not available 03/19/2015 15:17:17 hypothyroidism: care instructions [email or web address] Not available 03/19/2015 15:17:18 Reason for Referral [...] Go To The Location Of Their Choice, [id number] 05/05/2014 13:43:06 02/08/20 14 02/07/2014 thyro id panel TSH 5.60 mIU/m L (0.4-4 .0) high Not Available [facility] (Centralized Electronic Ordering - All Locations) Patient Can Go To The Location Of Their Choice, [id number] 05/05/2014 13:43:06 01/24/20 14 01/14/2014 imagi ng/di agnos tic resul t No observ ation record ed. shade espinoza Not Available 02/12/2015 16:15:46 09/07/19 15 09/06/2014 imagi ng/di agnos tic resul t No observ ation record ed. [email or web address] espinoza [facility] [address] [place] [address], [place], [address], 02/12/2015 16:15:48 03/24/20 15 03/23/2015 MAMMO , [...] Go To The Location Of Their Choice, [id number] 06/03/2015 04:10:42 03/24/20 15 03/24/2015 imagi ng/di agnos tic resul t No observ ation record ed. [email or web address] [facility] Orders [address], [place], [address], 03/27/2015 09:14:31 Result Notes None recorded. Problems Name Problem SNOMED Code Status Onset Date Resolution Date Notes Provider Name and Address Organization Details Recorded Time Abdomina l pain 82016507 Completed 201301/07/2014 IMPRESSI ON: CT AND LABS REVIEWED , EXAM AND HX CONSISTE NT WITH CONSTIPA TION, TIRLA OF MIRALAX BID UNTIL CLEANED OUT, RETURN IF ANYTHING IS WORSENIN G; RECORDED 10/10/19 14 10:45AM BY JAYSON GUZMAN MA, ANNOTATI ON/ADDEN DUM Not Available [facility] 4 15:11:10 Acute bronchit is [id number] Completed 200801/07/2014 IMPRESSI ON: PRODUCTI VE COUGH AND WHEEZING , IS A SMOKER, TREAT WITH ZPAK, CALL IF NOT BETTER.I GVE A PROAIR INHALER TO PT FOR SOME WHEEZING AND OUT OF WORK NOTE.; RECORDED 02/13/20 09 11:06AM BY JACK CAMEJO ON/ADDEN DUM Not Available [facility] 4 15:11:10 Acute secretor y otitis media [id number] Completed 200801/07/2014 IMPRESSI ON: RIGHT OM, TX BELOW, MOTRIN OR TYLENOL AND REST. CALL IF NOT BETTER; RECORDED 04/30/20 09 2:43PM BY BHUMI MCCOY MA, ANNOTATI ON/ADDEN DUM Not Available [facility] 4 15:11:10 Acute pharyngi tis 051066414 Completed 200801/07/2014 RECORDED 07/25/19 09 12:21PM BY TR LLAMAS, ANNOTATI ON/ADDEN DUM Not Available [facility] 4 15:11:10 Acute upper respirat ory infectio n 21270451 Completed 201201/07/2014 RECORDED 08/09/19 13 3:43PM BY JAYCE RENAE, RAVIATI ON/ADDEN DUM Not Available [facility] 4 15:11:10 Allergic rhinitis 89930568 Active 2013 RECORDED 11/22/19 14 3:27PM BY JAYCE RENAE, OFFICE VISIT Not Available [facility] 4 05:42:31 Anxiety state 840134000 Active 2013 IMPRESSI ON: ON MEDS AND IN COUNSELI NG; RECORDED 11/23/19 14 1:31PM BY MARLEN Corley MD, OFFICE VISIT Marlen lance [place] - [facility] 5 16:38:42 Disturba nce of attentio n 77401566 Completed 201201/07/2014 IMPRESSI ON: PT NEEDS EVAL FOR ADHD, SHE WILL SET UP APPT WITH A PSYCHIAT RIST; RECORDED 11/09/19 13 10:28AM BY JAYSON GUZMAN MA, JACK ON/ADDEN DUM Not Available [facility] 4 15:11:10 Carbuncl e of skin and/or subcutan eous tissue 74810140 Completed 200701/07/2014 IMPRESSI ON: R INGUINAL FOLD; RECORDED 03/28/20 08 9:38AM BY JACK RIVERA ON/ADDEN DUM Not Available [facility] 4 15:11:10 Cellulit is 397169256 Completed 201101/07/2014 RECORDED 05/14/20 12 10:53AM BY BHUMI MCCOY MA, JACK ON/ADDEN DUM Not Available [facility] 4 15:11:10 Screenin g for malignan t neoplasm of cervix Completed 201101/07/2014 RECORDED 05/14/20 12 10:53AM BY BHUMI MCCOY MA, ANNOTATI ON/ADDEN DUM Not Available [facility] 4 15:11:10 Chest pain 43354213 Completed 200701/07/2014 RECORDED 03/03/20 08 12:17PM BY JACK DAVIDSON ON/ADDEN DUM Not Available [facility] 4 15:11:10 Cough 49308007 Completed 201301/07/2014 IMPRESSI ON: POST VIRAL, MILD NO SIGNS OF ILLNESS GAVE SAMPLE OF ADVAIR TO TRY TO HELP WITH COUGH, NOT INTEREST ED IN ROBITUSS IN WITH CODEINE, CHANGE TO ZYRTEC, CALL IF NOT IMPROVED ; RECORDED 10/10/19 14 10:45AM BY JAYSON GUZMAN MA, JACK ON/ADDEN DUM Not Available [facility] 4 15:11:10 Dysphagi a [id number] Completed 201101/07/2014 RECORDED 05/14/20 12 10:53AM BY BHUMI MCCOY MA, ANNOTATI ON/ADDEN DUM Not Available [facility] 4 15:11:10 Respirat ory finding 336686395 Completed 200701/07/2014 RECORDED 03/03/20 08 12:17PM BY JACK DAVIDSON ON/ADDEN DUM Not Available [facility] 4 15:11:11 Follow-u p encounte r Completed 201301/07/2014 RECORDED 07/04/19 14 10:44AM BY JACK CAMEJO ON/ADDEN DUM Not Available [facility] 4 15:11:11 Gastroes ophageal reflux disease 334925931 Active 2013 RECORDED 11/22/19 14 3:27PM BY JAYCE RENAE, OFFICE VISIT Marlen Garland-L[place] lance [place] - [facility] 5 15:13:51 Influenz a vaccine needed [id number] 06 Completed 200901/07/2014 RECORDED 07/03/19 10 9:35AM BY JAYCE RENAE, HISTORIC AL SUMMARY Not Available [facility] 4 15:11:11 Tobacco user 202126238 Active 2013 RECORDED 11/22/19 14 3:27PM BY JAYCE RENAE, OFFICE VISIT Marlen lance [facility] 5 15:13:51 History of clinical finding in subject 498779404 Active 2013 RECORDED 10/10/19 14 10:45AM BY JAYSON GUZMAN MA, OFFICE VISIT Not Available [facility] 4 15:11:11 Adult health examinat ion Completed 201201/07/2014 IMPRESSI ON: PAP MAMMO AND COLONOWO CY UTD; RECORDED 10/19/19 13 3:08PM BY JACK CAMEJO ON/ADDEN DUM Not Available [facility] 4 15:11:11 Blood in urine [id number] Completed 201301/07/2014 IMPRESSI ON: NO BLOOD IN URINE CHECK FOR INFECTIO N BUT VERY UNLIKELY ; RECORDED 10/10/19 14 10:45AM BY JAYSON GUZMAN MA, ANNOTATI ON/ADDEN DUM Not Available [facility] 4 15:11:11 Pure hypercho lesterol emia 536409431 Active 2013 RECORDED 11/22/19 14 3:27PM BY JAYCE RENAE, OFFICE VISIT Not Available [facility] 4 05:42:31 Hypothyr oidism 93150334 Active 2013 IMPRESSI ON: CONTINUE MEDS, LEVLE WELL CONTROLL ED WITH DR SANDHU; RECORDED 11/22/19 14 3:27PM BY JAYCE RENAE, OFFICE VISIT Marlen lance [facility] 5 15:13:51 Influenz a with non-resp iratory manifest ation 63841400 Completed 200701/07/2014 RECORDED 03/03/20 08 12:17PM BY RAVI DAVIDSONATI ON/ADDEN DUM Not Available [facility] 4 15:11:11 Insomnia 826296844 Active 2013 IMPRESSI ON: BETTER WITH LORAZEPA M CONTINUE MED, SET UP COUNSELI NG; RECORDED 11/22/19 14 3:27PM BY JAYCE RENAE, OFFICE VISIT Not Available [facility] 4 05:42:31 Irritabl e bowel syndrome 90950209 Active 2013 RECORDED 11/22/19 14 3:27PM BY JAYCE RENAE, OFFICE VISIT Not Available [facility] 4 05:42:31 Laborato ry procedur e performe d 107327310 Completed 201301/07/2014 RECORDED 10/10/19 14 10:45AM BY JAYSON GUZMAN MA, ANNOTATI ON/ADDEN DUM Not Available [facility] 4 15:11:12 Low back pain 251865051 Active 2013 IMPRESSI ON: RESOLVED , WAS IN PT BUT MUCH BETTER.; RECORDED 11/22/19 14 3:27PM BY JAYCE RENAE, OFFICE VISIT Not Available [facility] 4 05:42:31 Lumbar sprain 716021617 Completed 200701/07/2014 IMPRESSI ON: WITH LEFT RADICULO PATHIC PAIN; RECORDED 03/03/20 08 12:17PM BY SD KEMP, RAVIATI ON/ADDEN DUM Not Available [facility] 4 15:11:12 Malaise and fatigue 936544574 Completed 200801/07/2014 IMPRESSI ON: BILAT LOWERLEG PAIN, RELIEVED WITH EPIDURAL THEN THEY RETURN WHEN WEARS OFF, RANDOM SUGAR TODAY 101, WILL CHECK FASTING SUGAR; RECORDED 04/02/20 09 9:04AM BY BHUMI MCCOY MA, ANNOTATI ON/ADDEN DUM Not Available [facility] 4 15:11:12 Amnesia 00713325 Completed 201201/07/2014 IMPRESSI ON: EVAL BY ENEDINA DICK; RECORDED 11/09/19 13 10:28AM BY JAYSON GUZMAN MA, ANNOTATI ON/ADDEN DUM Not Available [facility] 4 15:11:12 Migraine 67453759 Active 2013 RECORDED 11/22/19 14 3:27PM BY JAYCE RENAE, OFFICE VISIT Not Available [facility] 4 05:42:31 Cyst of eyelid 58737231 Completed 201101/07/2014 RECORDED 05/14/20 12 10:53AM BY BHUMI MCCOY MA, ANNOTATI ON/ADDEN DUM Not Available [facility] 4 15:11:12 Fibromyo sitis 79614758 Active 2013 IMPRESSI ON: REALLY HELPED WITH SAVELLA INITIALL Y, NOW WITH INCREE IN PAIN INCREASE TO 100MG IN AM AND 5 MG PM, NEEDS DAILY EXERCISE AND STRETCHI NG; RECORDED 11/22/19 14 3:27PM BY JAYCE RENAE, OFFICE VISIT Marlen lance [facility] 5 15:13:51 Administ ration of bacteria l and viral vaccine Completed 201001/07/2014 RECORDED 07/23/19 11 2:33PM BY JAYCE RENAE, OFFICE VISIT Not Available [facility] 4 15:11:12 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 DOES NOT FOLLOW TRIGEMIN AL NEURALGI A PATTERN. START GABAPENT IN, REFER TO NEURO; RECORDED 11/22/19 14 3:27PM BY JAYCE RENAE, OFFICE VISIT Not Available [facility] 4 05:42:31 Otalgia 27630477 Completed 201101/07/2014 RECORDED 05/14/20 12 10:53AM BY BHUMI MCCOY MA, JACK ON/ADDEN DUM Not Available [facility] 4 15:11:12 Knee pain Completed 200701/07/2014 IMPRESSI ON: REVIEWED LABS AND XRAY WITH PT, SEEMS MUSCULAR , ENCOURAG ED STRETCHI NG, CHANGE TO SOMA, WALKING AND CALL IF NOT BETTER; RECORDED 03/03/20 08 11:15AM BY JACK KIM ON/ADDEN DUM Not Available [facility] 4 15:11:13 Pain of elbow region 00283630 Completed 200701/07/2014 IMPRESSI ON: PT WITH SIGNIFIC [...] BY JACK KIM ON/ADDEN DUM Not Available [facility] 4 15:11:13 Pain in limb 39223855 Completed 200801/07/2014 IMPRESSI ON: BILAT LOWER LEGS, CHECK THYROID AND GLUCOSE, TRY LYRICA; RECORDED 04/02/20 09 9:04AM BY BHUMI MCCOY MA, JACK ON/ADDEN DUM Not Available [facility] 4 15:11:13 Pain in thoracic spine 055713701 Completed 200701/07/2014 RECORDED 05/28/20 08 7:51AM BY JACK KIM ON/ADDEN DUM Not Available [facility] 4 15:11:13 Eruption 574464764 Completed 201101/07/2014 RECORDED 05/14/20 12 10:53AM BY BHUMI MCCOY MA, JACK ON/ADDEN DUM Not Available [facility] 4 15:11:13 Allergic rhinitis 05704902 Completed 201101/07/2014 RECORDED 10/04/19 12 10:39AM BY BHUMI MCCOY MA, ANNOTATI ON/ADDEN DUM Not Available [facility] 4 15:11:13 Inflamma tion of sacroili ac joint 64099877 Completed 201101/07/2014 RECORDED 05/14/20 12 10:53AM BY BHUMI MCCOY MA, JACK ON/ADDEN DUM Not Available [facility] 4 15:11:13 Sciatica 44269647 Completed 201101/07/2014 RECORDED 05/14/20 12 10:53AM BY BHUMI MCCOY MA, RAVIATI ON/ADDEN DUM Not Available [facility] 4 15:11:13 Chronic sinusiti s 20868172 Completed 201101/07/2014 RECORDED 05/14/20 12 10:53AM BY BHUMI MCCOY MA, RAVIATI ON/ADDEN DUM Not Available [facility] 4 15:11:13 Screenin g for malignan t neoplasm of colon Completed 201101/07/2014 RECORDED 05/14/20 12 10:53AM BY BHUMI MCCOY MA, JACK ON/ADDEN DUM Not Available [facility] 4 15:11:13 Sign or symptom of the urinary system 49983160 Completed 201101/07/2014 RECORDED 05/14/20 12 10:53AM BY BHUMI MCCOY MA, JACK ON/ADDEN DUM Not Available [facility] 4 15:11:13 Tobacco dependen ce syndrome 46867430 Active 2013 RECORDED 11/22/19 14 3:40PM BY JAYCE RENAE, OFFICE VISIT Not Available [facility] 4 05:42:32 Constipa tion 43296692 Completed 200701/07/2014 IMPRESSI ON: RESOLVED WITH DIET CHANGES, NO PAIN; RECORDED 03/03/20 08 12:17PM BY JACK DAVIDSON ON/ADDEN DUM Not Available [facility] 4 15:11:14 Pruritic disorder 103307966 Completed 200701/07/2014 RECORDED 03/03/20 08 12:17PM BY JACK DAVIDSON ON/ADDEN DUM Not Available [facility] 4 15:11:14 Urinary tract infectio us disease 04031062 Completed 200701/07/2014 IMPRESSI ON: URINARY FREQUENC Y, LEFT FLANK PAIN BUT ALOS RUQ PAIN, RULE OUT UTI AND KIDNEY STONE; RECORDED 05/28/20 08 7:51AM BY TR LLAMAS, ANNOTATI ON/ADDEN DUM Not Available [facility] 4 15:11:14 Vaginiti s and vulvovag initis Completed 200701/07/2014 RECORDED 03/03/20 08 11:15AM BY TR LLAMAS, ANNOTATI ON/ADDEN DUM Not Available [facility] 4 15:11:14 Acute upper respirat ory infectio n 81234507 Active 2013 IMPRESSI ON: ENCOURAG E REST AND HYDRATIO N.; RECORDED 11/22/19 14 3:27PM BY JAYCE RENAE, OFFICE VISIT Not Available [facility] 4 05:42:32 Wheezing 46491340 Active 2013 RECORDED 11/22/19 14 3:27PM BY JAYCE RENAE, OFFICE VISIT Not Available [facility] 4 05:42:32 Attentio n deficit hyperact ivity disorder 258839613 Active 2013 STORY: DIAGNOSE D 10/2013; IMPRESSI ON: ON MEDS; RECORDED 11/23/19 14 1:31PM BY MARLEN Corley MD, OFFICE VISIT Not Available [facility] 4 05:42:31 Abdomina l pain 72197387 Completed 201302/03/2014 IMPRESSI ON: CT AND LABS REVIEWED , EXAM AND HX CONSISTE NT WITH CONSTIPA TION, TIRLA OF MIRALAX BID UNTIL CLEANED OUT, RETURN IF ANYTHING IS WORSENIN G; RECORDED 10/10/19 14 10:45AM BY JAYSON GUZMAN MA, ANNOTATI ON/ADDEN DUM Not Available [facility] 4 05:42:30 Acute bronchit is 02851757 Completed 200802/03/2014 IMPRESSI ON: PRODUCTI VE COUGH AND WHEEZING , IS A SMOKER, TREAT WITH ZPAK, CALL IF NOT BETTER.I GVE A PROAIR INHALER TO PT FOR SOME WHEEZING AND OUT OF WORK NOTE.; RECORDED 02/13/20 09 11:06AM BY JAYCE RENAE, RAVIATI ON/ADDEN DUM Not Available [facility] 4 05:42:30 Acute secretor y otitis media 380835782 Completed 200802/03/2014 IMPRESSI ON: RIGHT OM, TX BELOW, MOTRIN OR TYLENOL AND REST. CALL IF NOT BETTER; RECORDED 04/30/20 09 2:43PM BY BHUMI MCCOY MA, RAVIATI ON/ADDEN DUM Not Available [facility] 4 05:42:30 Acute pharyngi tis 121240465 Completed 200802/03/2014 RECORDED 07/25/19 09 12:21PM BY TR LLAMAS, RAVIATI ON/ADDEN DUM Not Available [facility] 4 05:42:30 Acute upper respirat ory infectio n 43667515 Completed 201202/03/2014 RECORDED 08/09/19 13 3:43PM BY JAYCE RENAE, RAVIATI ON/ADDEN DUM Not Available [facility] 4 05:42:31 Disturba nce of attentio n 84225232 Completed 201202/03/2014 IMPRESSI ON: PT NEEDS EVAL FOR ADHD, SHE WILL SET UP APPT WITH A PSYCHIAT RIST; RECORDED 11/09/19 13 10:28AM BY JAYSON GUZMAN MA, JACK ON/ADDEN DUM Not Available [facility] 4 05:42:31 Carbuncl e of skin and/or subcutan eous tissue 24810775 Completed 200702/03/2014 IMPRESSI ON: R INGUINAL FOLD; RECORDED 03/28/20 08 9:38AM BY JACK RIVERA ON/ADDEN DUM Not Available [facility] 4 05:42:31 Cellulit is 136168475 Completed 201102/03/2014 RECORDED 05/14/20 12 10:53AM BY BHUMI MCCOY MA, JACK ON/ADDEN DUM Not Available [facility] 4 05:42:31 Screenin g for malignan t neoplasm of cervix Completed 201102/03/2014 RECORDED 05/14/20 12 10:53AM BY BHUMI MCCOY MA, ANNOTATI ON/ADDEN DUM Not Available [facility] 4 05:42:31 Chest pain 35549313 Completed 200702/03/2014 RECORDED 03/03/20 08 12:17PM BY JACK DAVIDSON ON/ADDEN DUM Not Available [facility] 4 05:42:31 Cough 04017766 Completed 201302/03/2014 IMPRESSI ON: POST VIRAL, MILD NO SIGNS OF ILLNESS GAVE SAMPLE OF ADVAIR TO TRY TO HELP WITH COUGH, NOT INTEREST ED IN ROBITUSS IN WITH CODEINE, CHANGE TO ZYRTEC, CALL IF NOT IMPROVED ; RECORDED 10/10/19 14 10:45AM BY JAYSON GUZMAN MA, JACK ON/ADDEN DUM Not Available [facility] 4 05:42:31 Dysphagi a 54803249 Completed 201102/03/2014 RECORDED 05/14/20 12 10:53AM BY BHUMI MCCOY MA, JACK ON/ADDEN DUM Not Available [facility] 4 05:42:31 Respirat ory finding 001952614 Completed 200702/03/2014 RECORDED 03/03/20 08 12:17PM BY JACK DAVIDSON ON/ADDEN DUM Not Available [facility] 4 05:42:31 Follow-u p encounte r Completed 201302/03/2014 RECORDED 07/04/19 14 10:44AM BY JACK CAMEJO ON/ADDEN DUM Not Available [facility] 4 05:42:31 Influenz a vaccine needed 38885463112 06 Completed 200902/03/2014 RECORDED 07/03/19 10 9:35AM BY JAYCE RENAE, HISTORIC AL SUMMARY Not Available [facility] 4 05:42:31 Adult health examinat ion Completed 201202/03/2014 IMPRESSI ON: PAP MAMMO AND COLONOWO CY UTD; RECORDED 10/19/19 13 3:08PM BY JACK CAMEJO ON/ADDEN DUM Not Available [facility] 4 05:42:31 Blood in urine 95489534 Completed 201302/03/2014 IMPRESSI ON: NO BLOOD IN URINE CHECK FOR INFECTIO N BUT VERY UNLIKELY ; RECORDED 10/10/19 14 10:45AM BY JAYSON GUZMAN MA, JACK ON/ADDEN DUM Not Available [facility] 4 05:42:31 Influenz a with non-resp iratory manifest ation 92490575 Completed 200702/03/2014 RECORDED 03/03/20 08 12:17PM BY JACK DAVIDSON ON/ADDEN DUM Not Available [facility] 4 05:42:31 Laborato ry procedur e performe d 285897546 Completed 201302/03/2014 RECORDED 10/10/19 14 10:45AM BY JAYSON GUZMAN MA, JACK ON/ADDEN DUM Not Available [facility] 4 05:42:31 Lumbar sprain 227510753 Completed 200702/03/2014 IMPRESSI ON: WITH LEFT RADICULO PATHIC PAIN; RECORDED 03/03/20 08 12:17PM BY JACK DAVIDSON ON/ADDEN DUM Not Available [facility] 4 05:42:31 Malaise and fatigue 233395873 Completed 200802/03/2014 IMPRESSI ON: BILAT LOWERLEG PAIN, RELIEVED WITH EPIDURAL THEN THEY RETURN WHEN WEARS OFF, RANDOM SUGAR TODAY 101, WILL CHECK FASTING SUGAR; RECORDED 04/02/20 09 9:04AM BY BHUMI MCCOY MA, JACK ON/ADDEN DUM Not Available [facility] 4 05:42:31 Amnesia 68123098 Completed 201202/03/2014 IMPRESSI ON: EVAL BY PSYCHAIJose Luis RY; RECORDED 11/09/19 13 10:28AM BY JAYSON GUZMAN MA, JACK ON/ADDEN DUM Not Available [facility] 4 05:42:31 Cyst of eyelid 05803616 Completed 201102/03/2014 RECORDED 05/14/20 12 10:53AM BY BHUMI MCCOY MA, ANNOTATI ON/ADDEN DUM Not Available [facility] 4 05:42:31 Administ ration of bacteria l and viral vaccine Completed 201002/03/2014 RECORDED 07/23/19 11 2:33PM BY JAYCE RENAE, OFFICE VISIT Not Available [facility] 4 05:42:31 Otalgia 47685136 Completed 201102/03/2014 RECORDED 05/14/20 12 10:53AM BY BHUMI MCCOY MA, JACK ON/ADDEN DUM Not Available [facility] 4 05:42:31 Knee pain Completed 200702/03/2014 IMPRESSI ON: REVIEWED LABS AND XRAY WITH PT, SEEMS MUSCULAR , ENCOURAG ED ELEANOR DEGROOT, CHANGE TO SOMA, WALKING AND CALL IF NOT BETTER; RECORDED 03/03/20 08 11:15AM BY TR LLAMAS, RAVIATI ON/ADDEN DUM Not Available [facility] 4 05:42:31 Pain of elbow region 79722730 Completed 200702/03/2014 IMPRESSI ON: PT WITH SIGNIFIC [...] BY JACK KIM ON/ADDEN DUM Not Available [facility] 4 05:42:31 Pain in limb 21809952 Completed 200802/03/2014 IMPRESSI ON: BILAT LOWER LEGS, CHECK THYROID AND GLUCOSE, TRY LYRICA; RECORDED 04/02/20 09 9:04AM BY BHUMI MCCOY MA, JACK ON/ADDEN DUM Not Available [facility] 4 05:42:31 Pain in thoracic spine 335965604 Completed 200702/03/2014 RECORDED 05/28/20 08 7:51AM BY JACK IKM ON/ADDEN DUM Not Available [facility] 4 05:42:31 Palpitat ions 87084492 Active 2013 IMPRESSI ON: [facility] IS NL[facility] RECORDED 11/23/19 14 1:31PM BY MARLEN Corley MD, OFFICE VISIT Not Available [facility] 4 05:42:31 Posttrau matic stress disorder 87523089 Active 2013 DIAGNOSE D 10/2013; RECORDED 11/22/19 14 3:39PM BY JAYCE RENAE, OFFICE VISIT Not Available [facility] 4 05:42:31 Eruption 973415322 Completed 201102/03/2014 RECORDED 05/14/20 12 10:53AM BY BHUMI MCCOY MA, ANNOTATI ON/ADDEN DUM [facility] Available [facility] 4 05:42:31 Inflamma tion of sacroili ac joint 82830066 Completed 201102/03/2014 RECORDED 05/14/20 12 10:53AM BY BHUMI MCCOY MA, ANNOTATI ON/ADDEN DUM [facility] Available [facility] 4 05:42:32 Sciatica 52374122 Completed 201102/03/2014 RECORDED 05/14/20 12 10:53AM BY BHUMI MCCOY MA, ANNOTATI ON/ADDEN DUM Not Available [facility] 4 05:42:32 Chronic sinusiti s 14731776 Completed 201102/03/2014 RECORDED 05/14/20 12 10:53AM BY BHUMI MCCOY MA, ANNOTATI ON/ADDEN DUM [facility] Available [facility] 4 05:42:32 Screenin g for malignan t neoplasm of colon Completed 201102/03/2014 RECORDED 05/14/20 12 10:53AM BY BHUMI MCCOY MA, ANNOTATI ON/ADDEN DUM [facility] Available [facility] 4 05:42:32 Sign or symptom of the urinary system 80819183 Completed 201102/03/2014 RECORDED 05/14/20 12 10:53AM BY BHUMI MCCOY MA, ANNOTATI ON/ADDEN DUM Not Available [facility] 4 05:42:32 Constipa tion 34992464 Completed 200702/03/2014 IMPRESSI ON: RESOLVED WITH DIET CHANGES, NO PAIN; RECORDED 03/03/20 08 12:17PM BY RAVI DAVIDSONATI ON/ADDEN DUM Not Available [facility] 4 05:42:32 Pruritic disorder 544456460 Completed 200702/03/2014 RECORDED 03/03/20 08 12:17PM BY RAVI DAVIDSONATI ON/ADDEN DUM Not Available [facility] 4 05:42:32 Urinary tract infectio us disease 49731402 Completed 200702/03/2014 IMPRESSI ON: URINARY FREQUENC Y, LEFT FLANK PAIN BUT ALOS RUQ PAIN, RULE OUT UTI AND KIDNEY STONE; RECORDED 05/28/20 08 7:51AM BY TR LLAMAS, JACK ON/ADDEN DUM Not Available [facility] 4 05:42:32 Vaginiti s and vulvovag initis Completed 200702/03/2014 RECORDED 03/03/20 08 11:15AM BY RAVI KIMATI ON/ADDEN DUM Not Available [facility] 4 05:42:32 Skin lesion 61472273 Active Marlen lance [facility] 5 16:38:42 Asthma 125432280 Active Marlen lance [facility] 5 15:13:51 Notes:10/15/2013: ENDOSCOPY DATE: 2010; NORMAL; RECORDED 10/09/2013 10:45AM BY JAYSON GUZMAN MA, OFFICE VISIT COLONOSCOPY - STATUS IS INACTIVE 1999; RECORDED 10/04/2011 10:37AM BY BHUMI PORTILLO MA, ANNOTATION/ADDENDUM Problem Notes None recorded. Procedures Surgical History Date Name Laterality Status Provider Name and Address Organization Details Recorded Time 01/08/20 14 Most Recent Mammogram completed Bhumi Rolo-Pal os, [facility] 03/19/2015 14:42:26 10/25/19 14 Orthopedic Surgery completed Bhumi Rolo-Pal os, [facility] 03/19/2015 14:50:17 02/26/20 13 Date of Last Pap Smear completed Jayce Renae [facility] 01/13/2014 14:30:09 06/26/19 12 Hysterectomy completed Bhumi Rolo-Pal os, [facility] 03/19/2015 14:50:17 03/26/20 11 Orthopedic Surgery completed Bhumi Rolo-Pal os, [facility] 03/19/2015 14:42:27 10/25/19 11 Colonoscopy completed Bhumi Rolo-Pal os, [facility] 03/19/2015 14:42:27 10/25/19 08 Orthopedic Surgery completed Bhumi Rolo-Pal os, [facility] 03/19/2015 14:50:17 06/26/19 02 Eye Surgery completed Bhumi Rolo-Pal os, [facility] 03/19/2015 14:42:27 03/26/19 97 Tubal Ligation completed Bhumi Rolo-Pal os, [facility] 03/19/2015 14:42:27 Imaging Results Imaging Date Name Status LastModified by Organiz ation Details LastModified Time 01/14/2014 imaging/diagno stic result completed polo Information not available 02/12/2015 16:15:46 09/06/2014 imaging/diagno stic result completed polo [facility] Diagnosit Imaging Dept [address] [place] [address], [place], [address], 02/12/2015 16:15:48 03/23/2015 MAMMO, screening, digital, bilateral completed build [facility] (Centralized Electronic Ordering - All Locations) Patient Can Go To The Location Of Their Choice, [id number] 06/03/2015 04:10:42 03/24/2015 imaging/diagno stic result completed [email or web address] [facility] Orders [address], [place], [address], 03/27/2015 09:14:31 Procedure Notes None recorded. Medical Equipment None Reported. Allergies Allergen ID Allergen Name Allergen Category Reaction Reaction Severity Criticality Documentation Date Start Date Code Code System Note Provider Name and Address Organization Details Recorded Time 84860 Bactrim medicatio n vomiting Not available Not available 01/13/20142013 28296 9 [facility] 14:[facility]11 18129 Oxycontin medicatio n nausea vomiting severe severe Not available 03/19/2015 74191 6 [facility] 5 14:42:25 86030 Tylenol with Codeine medicatio n nausea vomiting severe severe Not available 03/19/2015 80044 6 [facility] 5 14:42:25 12019 tramadol Not available Not available Not available Not available 03/19/2015 11523 [facility] 5 14:42:25 07504 codeine medicatio n nausea vomiting severe severe Not available 03/19/2015 2670 [facility] 5 14:42:25 73679 acetamino phen / oxycodone medicatio n itching nausea vomiting moderate severe severe Not available 03/19/2015 51662 3 [facility] 5 14:42:25 36965 Abilify medicatio n dizziness Not available Not available 03/19/2015 57619 3 TraNorm TR Ag [facility] 5 14:51:54 7221 ibuprofen medicatio n headache Not available Not available 01/07/20142013 5640 RxNorm Bhumi SethNatividadShannan liang [place] [facility] 5 14:44:59 7222 paroxetin e Not available Not available Not available Not available 01/07/20142013 36444 RxNorm Bhumi YolyShannan liang [place] [facility] 5 14:42:25 7223 Wellbutri n medicatio n hives Not available Not available 01/07/20142013 59528 RxNorm Bhumi UriartegiselleShannan garthTR [facility] 5 14:45:11 Medications Name Sig Start Date [...] Not Available carisopro dol 350 mg tablet [facility] 12/30 completed RECORDED 03/03/20 08 11:15AM BY [...] Updated DateTime 4 100 % 100 % 70522.9 62782 g 98.4 [degF] 154.94 cm 33.3 kg/m2 72 /min 115 mm[Hg] 68 mm[Hg] Jayce Renae MA [facility] 4 14:30:08 Date Recorded Body weight Oxygen saturation Oxygen saturation in Arterial blood by Pulse oximetry Body height Body mass index (BMI) Body temperature Heart rate Systolic blood pressure Diastolic blood pressure Provider Name and Address Organization Details Last Updated DateTime 5 16159.6 266 g 97 % 97 % 154.94 cm 34 kg/m2 98.6 [degF] 86 /min 122 mm[Hg] 68 mm[Hg] Alexi Johnson [facility] 5 16:10:45 Date Recorded Heart rate Body temperature Oxygen saturation Oxygen saturation in Arterial blood by Pulse oximetry Body weight Body height Body mass index (BMI) Systolic blood pressure Diastolic blood pressure Provider Name and Address Organization Details Last Updated DateTime 5 96 /min 99.2 [degF] 97 % 97 % 43510.4 0371 g 157.48 cm 33.5 kg/m2 138 mm[Hg] 72 mm[Hg] Bhumi liang MA [facility] 5 14:44:19 Social History Question Answer Notes LastModified by Organizat ion Details LastModified Time Tobacco Smoking Status Current Every Day [facility] 01/13/2014 14:23:38 Do You Have An Advance Directive? No Information not available 01/13/2014 Is Blood Transfusion Acceptable In An Emergency? Yes Information not available 03/19/2015 What Is Your Level Of Caffeine Consumption? Heavy Information not available 03/19/2015 How Much Tobacco Do You Chew? None [email or web address] Information not available 01/13/2014 Are You Deaf Or Do You Have Serious Difficulty Hearing? No [email or web address] Information not available 01/13/2014 What Type Of Diet Are You Following? REGULAR Information not available 03/19/2015 Which Illicit Or Recreational Drugs Have You Used? None [email or web address] Information not available 01/13/2014 Have There Been Any Changes To Your Family Or Social Situation? No [email or web address] Information not available 01/13/2014 How Many Days In The Past Year Have You Had A Heavy Drinking Consumption (4+ Female, 5+ Male)? 0 [email or web address] Information not available 01/13/2014 Are There Any Guns Present In Your Home? No [email or web address] Information not available 01/13/2014 Single Or Multi-level Home/work? 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 With Others [email or web address] Information not available 01/13/2014 Do You Take Precautions To Prevent Distracted Driving? No Talks On Phone Information not available 03/19/2015 How Often Do You Need To Have Someone Help You When You Read Instructions, Pamphlets, Or Other Written Material From Your Doctor Or Pharmacy? Never Information not available 03/19/2015 Marital Status Single [email or web address] Informatio n not available 01/13/2014 How Many Children Do You Have? 3 Information not available 03/19/2015 Do You Use Protection During Sex? No Information not available 03/19/2015 Difficulty Reading? No [email or web address] Information not available 01/13/2014 Seat Belts Used Routinely Yes Information not available 03/19/2015 Are You Sexually Active? Yes Information not available 03/19/2015 Smoke Alarm In Home Yes Information not available 01/13/2014 At What Age Did You Start Smoking Tobacco? 19 Information not available 01/13/2014 Are You Passively Exposed To Smoke? Yes [email or web address] Information not available 01/13/2014 How Much Tobacco Do You Smoke? 1 PPD Information not available 03/19/2015 General Stress Level Medium [email or web address] Information not available 01/13/2014 Do You Use Sunscreen Routinely? Yes Information not available 03/19/2015 How Many Years Have You Smoked Tobacco? 21 Information not available 03/19/2015 Difficulty Watching TV? No [email or web address] Information not available 01/13/2014 Do You Have Difficulty Walking Or Climbing Stairs? No [email or web address] Information not available 01/13/2014 Sex: Unknown Functional Status Question Answer Note LastModified by Organizat ion Details LastModified Time Do you use any illicit or recreational drugs? No [email or web address] Information not available 01/13/2014 What is your level of alcohol consumption? Occasional Information not available 01/13/2014 Are you currently employed? Yes Information not available 03/19/2015 Difficulty driving at night? No Information no t available 01/13/2014 Do you have difficulty doing errands alone? No [email or web address] Information not available 01/13/2014 Are you able to care for yourself? 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 Yes [email or web address] Information not available 01/13/2014 What is your exercise level? None [email or web address] Information not available 01/13/2014 Mental Status Question Answer Note LastModified by Organizat ion Details LastModified Time Do you have difficulty concentrating, remembering or making decisions? No controlled on medication [email or web address] Information not available 01/13/2014 Family History Relationship [...] History Condition Response Coronary Artery Disease N Other N Gout N Kidney Stones N Blood Diseases Y Hyperthyroidism N Breast Cancer N mrsa exposure N Hypothyroidism Y Depression Y COPD N Lung Disease N Developmental or Behavioral Disorders N Defects or Inherited Disease N Breast Problem N Anesthesia Complications N Headaches/Migraines N Varicose Veins N Anxiety Disorder Y Muscle, Joint, or Bone Problems Y Obesity Y Vision or Eye Problems Y Arthritis N Head Injury/Concussion N Infertility N Polyps N Mental Disorder N Congenital Anomalies N Acid Reflux (GERD) Y Cancer N Stroke N ADHD Y Endometriosis N High Cholesterol N Liver Disease N Headaches N Fibromyalgia Y Kidney Disease N Heart Problems N Ear [...] virus, trivalent, preservative 8 completed Not Available [facility] 01/07/2014 14:00:52 Influenza, split virus, trivalent, preservative 0 completed Not Available [facility] 01/07/2014 14:00:52 Novel [id number] , all formulations 0 completed Not Available [facility] 01/07/2014 14:00:52 Tdap 1 completed Not Available [facility] 01/07/2014 14:00:52 Influenza, split virus, trivalent, preservative 1 completed Not Available [facility] 01/07/2014 14:00:52 Influenza, split virus, trivalent, preservative 2 completed Not Available [facility] 01/07/2014 14:00:52 Influenza, split virus, trivalent, preservative 3 completed Not Available [facility] 01/07/2014 14:00:53 Past Encounters Encounter ID Performer Location Encounter Start Date Encounter Closed Date Diagnosis/Indication Diagnosis SNOMED-CT Code Diagnosis ICD10 Code Diagnosis Note [id number] Marlen robison MD Main Office [address] [place] [address] 01/13/2014 14:03:05 01/13/2014 14:56:32 Adult health examination 227384984 Pt is doing very well, will start exercising but is losing weight, mood and focus are so much better on Adderall. Hypothyroidism 06832697 Gastroesop hageal reflux disease 595392149 Insomnia 890113515 Attention deficit hyperactivity disorder 866000505 doing great on meds, followed by specialist 99007 [facility] [address] [place] [place] [address] 10/17/2006 00:00:00 79109 [facility] [address] [facility],[address] [place] [address] 10/23/2006 00:00:00 52767 auto[facility]Comm erce [address] [facility],[address] [place] [address] 11/10/2006 00:00:00 [id number] auto[facility]Comm erce [address] [facility],[address] [place] [address] 11/17/2006 00:00:00 [id number] auto[facility]Comm erce [address] [facility],[address] [place] [address] 12/06/2006 00:00:00 [id number] auto[facility] erce [address] [facility],[address] [place] [address] 03/01/2007 00:00:00 72978 auto[facility]Comm erce [address] [place],[address] [place] [address] 04/04/2007 00:00:00 32976 auto[facility]Comm erce [address] [facility],[address] [place] [address] 05/19/2007 00:00:00 70121 auto[facility]Comm erce [address] [facility],[address] [place] [address] 06/06/2007 00:00:00 39988 [facility] [address] [place] [address] 08/08/2007 00:00:00 43845 auto[facility]Comm erce [address] [facility],[address] [place] [address] 09/06/2007 00:00:00 01635 auto[facility]Comm erce [address] [facility],[address] [place] [address] 09/08/2007 00:00:00 97026 auto[facility]Comm erce [address] [facility],[address] [place] [address] 10/15/2007 00:00:00 84155 auto[facility] erce [address] [facility],[address] [place] [address] 11/01/2007 00:00:00 24631 auto[facility] erce [address] [facility],[address] [place] [address] 11/14/2007 00:00:00 36944 auto[facility]Comm erce [address] [facility],[address] [place] [address] 12/10/2007 00:00:00 05500 auto[facility]Comm erce [address] [facility],[address] [place] [address] 12/11/2007 00:00:00 19943 auto[facility]Comm erce [address] [facility],[address] [place] [address] 03/03/2008 00:00:00 85039 auto[facility]Comm erce [address] [facility],[address] [place] [address] 03/28/2008 00:00:00 92113 auto[facility]Comm erce [address] [facility],[address] [place] [address] 04/28/2008 00:00:00 01350 autoEComm erce [address] [facility],[address] [place] [address] 05/28/2008 00:00:00 36017 auto[facility]Comm erce [address] [facility],[address] [place] [address] 06/11/2008 00:00:00 82507 [address] [place] [address] 06/20/2008 00:00:00 59752 [facility] [address] [place] [address] 06/25/2008 00:00:00 17544 autoEComm erce [address] [facility] [address] [place] [address] 07/25/2008 00:00:00 36774 autoEComm erce [address] [facility] [address] [place] [address] 09/10/2008 00:00:00 63361 autoEComm erce [address] [facility] [address] [place] [address] 12/10/2008 00:00:00 96438 autoEComm erce [address] [facility],[address] [place] [address] 02/12/2009 00:00:00 [id number] auto[facility]Comm erce [address] [facility],[address] [place] [address] 04/02/2009 00:00:00 53309 auto[facility]Comm erce [address] [facility],[address] [place] [address] 04/30/2009 00:00:00 01754 autoEComm erce [address] [facility],[address] [place] [address] 07/02/2009 00:00:00 42685 auto[facility]Comm erce [address] [facility],[address] [place] [address] 07/30/2009 00:00:00 34298 auto[facility]Comm erce [address] [facility],[address] [place] [address] 09/16/2009 00:00:00 09072 autoEComm erce [address] [facility],[address] [place] [address] 12/29/2009 00:00:00 90052 auto[facility]Comm erce [address] [facility],[address] [place] [address] 01/26/2010 00:00:00 78063 auto[facility]Comm erce [address] [place] [address] 03/08/2010 00:00:00 16769 auto[facility]Comm erce [address] [place] [address] 07/23/2010 00:00:00 21776 auto[facility]Comm erce [address] [place] [address] 09/20/2010 00:00:00 71313 autoEComm erce [address] [facility] [address] [place] [address] 02/04/2011 00:00:00 41462 autoEComm erce [address] [facility] [address] [place] [address] 03/11/2011 00:00:00 69759 autoEComm erce [address] [facility] [address] [place] [address] 08/05/2011 00:00:00 46026 autoEComm erce [address] [facility],[address] [place] [address] 09/14/2011 00:00:00 79259 autoEComm erce [address] [facility] [address] [place] [address] 10/04/2011 00:00:00 46177 autoEComm erce [address] [facility],[address] [place] [address] 01/02/2012 00:00:00 19165 autoEComm erce [address] [facility],[address] [place] [address] 05/14/2012 00:00:00 10123 autoEComm erce [address] [facility] [address] [place] [address] 06/14/2012 00:00:00 98848 autoEComm erce [address] [facility],[address] [place] [address] 08/09/2012 00:00:00 19333 autoEComm erce [address] [facility],[address] [place] [address] 10/18/2012 00:00:00 85141 [facility]Comm erce [address] [place] [address] 11/08/2012 00:00:00 10974 autoEComm erce [address] [facility],[address] [place] [address] 11/22/2012 00:00:00 48747 auto[facility]Comm erce [address] [place] [address] 02/18/2013 00:00:00 95448 autoEComm erce [address] [facility],[address] [place] [address] 07/04/2013 00:00:00 10449 autoEComm erce [address] [facility],[address] [place] [address] 08/21/2013 00:00:00 97108 autoEComm erce [address] [facility],[address] [place] [address] 10/09/2013 00:00:00 35104 auto[facility]Comm erce [address] [facility],[address] [place] [address] 11/21/2013 00:00:00 [id number] Marlen robison MD Main Office [address] [facility] [address] [place] [address] 02/12/2015 15:58:35 02/12/2015 16:32:48 Anxiety state 529836902 not well treated, psychiatry [facility] prescribes and will start up counseling again Gastroesop hageal reflux disease 921045365 well controlled continue meds Hypothyroidism 07841191 on meds from Dr Sandhu, Skin lesion 93233758 rec urrent infected cysts, pt will see ID [id number] Marlen robison MD Main Office [address] [facility] [address] [place] [address] 03/19/2015 14:34:16 03/19/2015 15:18:14 Adult health examination 600081179 Pt is doing very well, will start exercising but is losing weight, mood and focus are so much better on Adderall. Gastroesop hageal reflux disease 798070000 well controlled continue meds Hypothyroidism 90779906 on meds from Dr Sandhu, Fibromyositis 15979268 Asthma 058223336 Tobacco user 764615565 Health Concerns Section Related Observation LastModified by Organization Detai ls LastModified Time None Recorded Concern Status LastModified by Organization Details LastModified Time None Recorded Advance Directives Directive N: Payers Encounter Date Sequence Insurance Name Policy Number Policy Haley Covered Member ID Haley Member ID Guarantor Name 01/13/2014 1 [facility] (HMO) [id number] Polina Burris [id number] Polina Burris 02/12/2015 1 [facility] - MEDICAID ESSENTIAL (MEDICAID HMO) [id number] Polina Burris [id number] Polina Burris 02/12/2015 2 [place] Polina Burris [id number] Polina Burris 03/19/2015 1 [facility] - [facility] - MEDICAID ESSENTIAL (MEDICAID HMO) [id number] Polina Burris [id number] Polina Burris 03/19/2015 2 [place] Polina Burris [id number] Polina Burris Notes Date Note Type Note Provider Name and Address Organization Details Recorded Time 02/12/2015 text/html Pt is still struggling with anxiety. She is on paxil and uses lorazepam as she needs it. Pt is also treated for GERd, hypothyroid. Pt sees [facility] psychiatric provider, pt had abilify recently added. She will get a new [...] groin, has them for years, scars. Marlen lance, [place] - [facility] 02/12/2015 16:39:03 03/19/2015 text/html PT is here for a n annual exam. [facility] 15:13:53 OBGyn Episode No OBEpisode recorded.
--- OUTSIDE RECORDS SUMMARY | 2024-11-08 11:28 | XMS_ITS | Clinical Summary ---
Author Organization [employer] Address [address] [facility] 7 [place] [address] Care Team Providers Care Navy Diver Name Role Phone Name, Eris FELDMAN Primary Care Provider [phone] Allergies Active Allergy Reactions Criticality Noted Date [...] complication, without long-term current use of insulin ([facility]),Morb id obesity (CMS/HCC),Kiln Car Unloader charly pain of right ankle USE DIRECTED TO TEST BLOOD SUGAR ONCE DAILY 1 kit 08/23/19 24 Active glucose blood (Contour Next Test) test strip USE DIRECTED TO TEST BLOOD SUGAR ONCE DAILY 100 each 11 08/23/19 24 Active Microlet Lancets miscIndication s:Type 2 diabetes mellitus without complication, without long-term current use of insulin ([facility]),Morb id obesity (CMS/[facility]),Kiln Car Unloader charly pain of right ankle USE DIRECTED TO TEST BLOOD SUGAR EVERY MORNING 100 each 11 08/23/19 24 Active pen needle 32G x 4 mm miscIndication s:Type 2 diabetes mellitus without complication, without long-term current use of insulin ([facility]) Inject under the skin Once daily. Use [...] complication, without long-term current use of insulin ([facility]) Inject 1.5 mg under the skin 1 (one) time per week. 2 mL 3 10/03/19 25 Active levothyroxine (Synthroid, Levoxyl) 112 MCG tablet TAKE 1 TABLET BY MOUTH EACH MORNING BEFORE BREAKFAST 90 tablet 1 10/23/19 25 Active Adderall XR 30 MG 24 hr capsule 06/26/19 17 Active levothyroxine (Synthroid, Levoxyl) 112 MCG tablet TAKE 1 TABLET BY MOUTH EACH MORNING BEFORE BREAKFAST 30 tablet 8 10/17/19 24 025 Discontinued lidocaine (Lidoderm) 5 % patchIndicatio ns:Chronic bilateral low back pain with right-sided sciatica Apply 1 patch topically Once per day. Remove & discard patch within 12 hours or as directed by . 30 patch 1 10/03/19 25 025 Active Problems Problem Noted Date Diagnosed Date [...] MA, ANNOTATION/ADDENDUM Malaise and fatigue 04/02/2009 08/22/19 Overview (08/22/2023): IMPRESSION: BILAT LOWERLEG PAIN, RELIEVED [...] (08/22/2023): RECORDED 05/28/2008 7:51AM BY TR LLAMAS, ANNOTATION/ADDENDUM Urinary tract infectious disease 05/28/2008 08/22/2023 Overview [...] SD KEMP, ANNOTATION/ADDENDUM Influenza with non-respiratory manifestation 08/22/2023 Overview (08/22/2023): RECORDED 03/03/2008 12:17PM BY SD KEMP, ANNOTATION/ADDENDUM Encounters Date Type Department Care Team Description 10/30/2024 Orders Only GENERIC EXTERNAL DATA DEPARTMENT Provider, Generic External Data 10/29/2024 Orders Only GENERIC EXTERNAL DATA DEPARTMENT Provider, Generic External Data 10/25/[address] [address] Eris Chappell MD chartprep 10/24/2024 Travel 10/21/2024 Refill [facility] [address] [place] [phone] Eris Chappell MD 10/10/[address] [address] Maude Horton [place] december recalls 10/03/[address] [address] Maude Horton [place] faxed - Lung screening 10/02/2024 4:00 PM EDT Office Visit [facility]INE [address] [place] [phone] Eris Chappell MD Type 2 diabetes mellitus without complication, without long-term current use of insulin (CMS/HCC) (Primary Dx); Morbid obesity (CMS/HCC); Acquired hypothyroidism; Elevated blood pressure reading; Low vitamin D level; Encounter for screening mammogram for malignant neoplasm of breast; Tobacco dependence syndrome; Chronic bilateral low back pain with right-sided sciatica 10/02/2024 Travel 09/25/2024 Travel from Last 3 Months Immunizations Immunization Administration Dates Next Due Influenza injectable quadriv alent preservative free 03/15/2016,08/03/2015 Influenza, IIV3, injectable 03/26/2013,1 ,03/26/2011,07/03,04/03/2008 Novel [id number], all formulations 07/03/2009 Pneumococcal Polysaccharide PPSV23 08/03/2015 [...] Description 01/29/2025 3:45 PM EDT Office Visit [facility] MEDICINE [address] [place] [address] Name, MD Eris [address] [place] [address] Health Maintenance Due Date Last Done Comments [...] Vaccines (1 of 2) 01/04/2024 COVID-19 Vaccine (3 season) 2024 06/21/2021, 05/28/2021 Influenza Vaccine (#1) 2024 6, 08/03/2015, 03/26/2013, Additional history exists Diabetes: Hemoglobin A1C 04/03/2025 025, 03/04/2024, 08/22/2023, Additional history exists Alcohol/Substance Use Screening 06/07/2025 06/07/2024 Depression Screening 06/07/2025 06/07/2024, 06/07/20 24 SDOH Screening 06/07/2025 06/07/2024 Tobacco Screening 10/02/2025 [...] patient's age to complete this topic Meningococcal B Vaccine Aged Out No l onger eligible based on patient's age to complete [...] Procedure Name Priority Date/Time Associated Diagnosis Comments HCG, QL, URINE Routine 10/30/2024 12:40 AM EDT URINALYSIS WITH REFLEX MICROSCOPIC Routine 10/30/2024 12:[address] ABDOMEN PELVIS W CONTRAST Routine 10/29/2024 11:51 PM EDT HCG, TOTAL, QN Routine 10/29/2024 8:22 PM EDT LIPASE Routine 10/29/2024 8:22 PM EDT COMPREHENSIVE METABOLIC PANEL Routine 10/29/2024 8:22 PM EDT CBC WITH AUTO DIFFERENTIAL Routine 10/29/2024 8:22 PM EDT POCT GLYCATED HEMOGLOBIN, TOTAL Routine 10/02/2024 4:10 PM EDT Type 2 diabetes mellitus without complication, without long-term current use of insulin ([facility]/HCC) POCT GLUCOSE Routine 10/02/2024 4:09 PM EDT Type 2 diabetes mellitus without complication, without long-term current use of insulin (CMS/[facility]) MAMMOGRAM GENERIC Routine 10/19/2021 3:3 0 PM EDT ZZZ HISTORICAL LIPID PANEL Routine 07/19/2021 6:45 AM EST HM COLONOSCOPY Routine 01/29/2019 3:12 PM EDT ZZZ HISTORICAL HPV MRNA E6/E7 Routine 04/26/2017 10:15 AM EDT from Last 3 Months or Most Recently Relevant to Health Maintenance Results * HCG, Qualitative, Urine (10/30/2024 12:40 AM EDT) Urine NEGATIVE NEGATIVE [facility] Comment:This test was develo ped to detect early . Falsenegative results may occur after the 5th - 7th week ofpregnancy when using this test method. If clinicallyindicated, consider a serum hCG. 10/30/2024 12:4 0 AM EDT 10/30/2024 12:44 AM EDT us Generic External Data Provider LAB URINE ORDERAB LES Final Result Performing Organization Address [facility] de Phone Number [facility] [address] [place] [address] [phone] * (ABNORMAL) Urinalysis w/reflex microscopic (10/30/2024 12:40 AM EDT) Color Urine Yellow [facility] Appearance Urine Clear [facility] PH 6.0 5.0 - 9.0 [facility] Glucose Urine UA Negative Negative mg/dL [facility] Urine Blood Negative Negative [facility] Specific Reeders - Urine >=1.030(H) 1.005 - 1.025 [facility] Urine Protein Trace Neg-Trace mg/dL [facility] Urine Ketones Negative Negative mg/dL [facility] Nitrite Urine Negative Negative [facility] Leukocyte Esterase Urine Negative Negative [facility] 10/30/2024 12:4 0 AM EDT 10/30/2024 12:44 AM EDT Narrative [facility] - 10/30/2024 12:49 AM EDT Urine, Clean Catch Generic External Data Provider LAB URINE ORDERAB LES Final Result Performing Organization Address [facility] de Phone Number [facility] [address] [place] [address] [phone] * CT Abdomen Pelvis w/ Contrast (10/29/2024 11:51 PM EDT) Anatomical Region Laterality Modality Body, Pelvis, Abdomen Computed T omography 10/29/2024 11:5 1 PM EDT Narrative 10/29/2024 11:53 PM EDT ? [facility] ?[address] ?[place] [address] ? CT Scan Report ? Signed ? Patient: Burris,Polina ?MR#: [id number] ?? [id number] ? : 1975 ?Acct:[id number] ? Age/Sex: 49 / F ?ADM Date: 05/06/25 ? Loc: HO.ED ? Attending Dr: ? Ordering Physician: Nash Goldberg ?? Date of Service: 10/29/24 ?? Procedure(s): CT abdomen pelvis w IV con ?? Accession Number(s): [id number] ? cc: Name,Eris FELDMAN; Nash Goldberg ? Report Number: ?? [id number]: Total DLP = ??754.00 mGy-cm ? CLINICAL HISTORY: left abdominal pain, diarrhea ? CT abdomen and pelvis with contrast ? Comparison: US/SR - US ABDOMEN COMP W ELASTOGRAPHY - 08/26/22 08:38 EST ? Findings: ?? No consolidation or effusion. ? The liver is enlarged. The liver appears normal in contour. There is ?? diffusely decreased hepatic attenuation. Minimal nonspecific thickening of ?? the left adrenal gland. The gallbladder and solid organs are otherwise ?? within normal limits. No hydronephrosis or hydroureter. ?? No bowel obstruction, pneumoperitoneum, or pneumatosis. Mildly limited ?? evaluation of the stomach related to gastric underdistention. ? The uterus is surgically absent. No bladder wall thickening. Nondilated ?? appendix. ?? No acute fracture visualized. ? IMPRESSION: ?? 1. No acute inflammatory process identified within the abdomen or pelvis. ?? 2. Hepatomegaly with fatty infiltration of the liver. ? This document has been electronically signed by: Nish Hendricks MD on ?? 10/29/2024 23:51:47 ? Dictated By: ?Nish Hendricks MD ? Signed By: ?<Electronically signed by Nish Hendricks MD in OV> ? 10/29/24 2353 ? DD/ 2351 ? TD/TT: 10/29/24 2351 ? Tub Mender: ? Procedure Note Taty New - 10/30/[address] [address] [address] Scan Report Signed Patient: Kadie Burris#: [id number] : 1975Acct:[id number] Age/Sex: 49 / FADM Date: 10/29/24 Loc: HO.ED Attending Dr: Ordering Physician: Nash Goldberg Date of Service: 10/29/24 Procedure(s): CT abdomen pelvis w IV con Accession Number(s): [id number] cc: Name,Eris FELDMAN; Nash Goldberg Report Number: [id number]: Total DLP = 754.00 mGy-cm CLINICAL HISTORY: left abdominal pain, diarrhea CT abdomen and pelvis with contrast Comparison: US/SR - US ABDOMEN COMP W ELASTOGRAPHY - 08/26/22 08:38 EST Findings: No consolidation or effusion. The liver is enlarged. The liver appears normal in contour. There is diffusely decreased hepatic attenuation. Minimal nonspecific thickening of the left adrenal gland. The gallbladder and solid organs are otherwise within normal limits. No hydronephrosis or hydroureter. No bowel obstruction, pneumoperitoneum, or pneumatosis. Mildly limited evaluation of the stomach related to gastric underdistention. The uterus is surgically absent. No bladder wall thickening. Nondilated appendix. No acute fracture visualized. IMPRESSION: 1. No acute inflammatory process identified within the abdomen or pelvis. 2. Hepatomegaly with fatty infiltration of the liver. This document has been electronically signed by: Nish Hendricks MD on 10/29/2024 23:51:47 Dictated By: Nish Hendricks MD Signed By: <Electronically signed by Nish Hendricks MD in OV> 10/29/242352 DD/ 50 TD/TT: 10/29/242350 Tub Mender: [facility] External Provider IMG CT PROCEDURES Edited Result - Final * (ABNORMAL) CBC auto differential (10/29/2024 8:22 PM EDT) White Blood Count 10.0 4.8 - 10.8 X10*3/uL [facility] Red Blood Count 4.39 4.20 - 5.50 X10*6/uL [facility] Hemoglobin 12.2 12.0 - 16.0 g/dl [facility] Hematocrit 36.9(L) 37.0 - 47.0 % [facility] Mean Corpuscular Volume 84.1 80.0 - 98.0 fL [facility] Mean Corpuscular Hemoglobin 27.8 27.0 - 33.0 pg [facility] Mean Corpuscular HGB Conc 33.1 31.0 - 35.0 g/dl [facility] Red Cell Distribution Width 13.6 11.0 - 16.0 % [facility] Platelet Count 379 160 - 400 X10*3/uL [facility] Mean Platelet Volume 9.5 9.4 - 12.3 fL [facility] Neutrophils Percent Auto 57.8 45 - 73 % [facility] Imm Gran Pct Auto 0.7(H) 0.0 - 0.4 % [facility] Lymphocytes Percent Auto 31.2 20 - 40 % [facility] Monocytes Percent Auto 4.0 2 - 11 % [facility] Eosinophils Percent Auto 6.1(H) 0 - 4 % [facility] Basophils Percent Auto 0.2 0 - 2 % [facility] NRBC Pct Auto 0.0 0.0 - 0.2 /100WBC [facility] Neutrophils Absolute Auto 5.8 2.0 - 8.3 x10*3/uL [facility] Imm Gran Abs Auto 0.07(H) 0.00 - 0.03 X10*3/uL [facility] Lymphocytes Absolute Auto 3.1 1.2 - 4.9 X10*3/uL [facility] Monocytes Absolute Auto 0.4 0.1 - 1.2 X10*3/uL [facility] Eosinophils Absolute Auto 0.6(H) 0.0 - 0.4 X10*3/uL [facility] Basophils Absolute Auto 0.0 0.0 - 0.2 X10*3/uL [facility] NRBC Abs Auto 0.000 0.0 - 0.012 X10*3/uL [facility] 10/29/2024 8:22 PM EDT 10/29/2024 8:24 PM EDT us Generic External Data Provider LAB BLOOD ORDERAB LES Final Result [facility] [address] [place] [address] [phone] * hCG, Total, Quantitative (10/29/2024 8:22 PM EDT) HCG Quantitative 3 mIU/mL [facility] Comment:Weeks post LMP Appro ximate hCG(Last Menstrual Period) Range (mIU/ml)3 - 4 weeks 9 - 1304 - 5 weeks 75 - 2,6005 - 6 weeks 850 - 20,8006 - 7 weeks 4000 - 100,2007 - 12 weeks 11,500 - 289,41706 - 16 weeks 18,300 - 137,38984 - 29 weeks (2nd trimester) 1,400 - 53,04024 - 41 weeks (3rd trimester) 940 - 60,000The Gonzalez B- hCG assay is used for the early detection ofpregnancy; it cannot be used to diagnose any conditionunrelated to . If a B-hCG level is not supportedby the clinical evidence, results should be confirmed by analternative method (qualitative urine hCG, for example). 10/29/2024 8:22 PM EDT 10/29/2024 8:24 PM EDT Generic External Data Provider LAB BLOOD ORDERAB LES Final Result Performing Organization Address City/[facility]/ZIP Co de Phone Number [facility] [address] [place] [phone] * Lipase (10/29/2024 8:22 PM EDT) Lipase 11 8 - 78 U/L [facility] 10/29/2024 8:22 PM EDT 10/29/2024 8:24 PM EDT Generic External Data Provider LAB BLOOD ORDERAB LES Final Result Performing Organization Address City/[facility]/ZIP Co de Phone Number [facility] [address] [place] [phone] * (ABNORMAL) Comprehensive Metabolic Panel (10/29/2024 8:22 PM EDT) Sodium 143 135 - 145 mmol/L [facility] Potassium 3.4 3.3 - 5.1 mmol/L [facility] Chloride 108 96 - 108 mmol/L [facility] Carbon Dioxide 24 22 - 29 mmol/L [facility] Anion Gap 14 12 - 20 [facility] Urea Nitrogen (BUN) 12 9 - 16 mg/dL [facility] Creatinine, Serum 1.04 0.5 - 1.4 mg/dL [facility] Creatinine Clr Calc Pharmacy 73.3 [facility] Comment:Provided height and weight: 157.48 cm,104.326 kg.eGFR (calculated from the MDRD study equation) and eCrCl(calculated from the Cockcroft-Gault equation) are based ondifferent parameters and may not yield comparable results.If eCrCl result is absurd, please check patient'sheight/weight. Estimated Glomerular Filt Rate 56 [facility] Comment:Chronic Kidney Disea se: Estimated GFR < 60 mL/min/1.36t5Wzxwyk Kidney Disease: Estimated GFR < 15 mL/min/1.73m2 Glucose 126(H) 60 - 115 mg/dL [facility] Calcium 9.3 8.4 - 10.2 mg/dL [facility] Bilirubin, Total 0.3 0.0 - 1.0 mg/dL [facility] Aspartate Amino Transferase 36(H) 5 - 31 U/L [facility] Alanine Aminotransferase 45(H) 0 - 31 U/L [facility] Total Protein 7.9 6.5 - 8.0 g/dL [facility] Albumin Level 4.4 3.5 - 5.0 g/dL [facility] Alkaline Phosphatase 100 39 - 117 U/L [facility] 10/29/2024 8:22 PM EDT 10/29/2024 8:24 PM EDT us Generic External Data Provider LAB BLOOD ORDERAB LES Final Result [facility] [address] [place] [address] [phone] * (ABNORMAL) POCT HGB A1C (10/02/2024 4:10 [...] Procedure: Mammography Report 1 Procedure Note Provider, MD Jeff - 09/18/2022 Refer to the Notes tab for result details Legacy Procedure: Mammography Report 1 us Eris Chappell MD IMG BI PROCEDURES Final Result * LIPID PANEL [...] liver disease. LDL Cholesterol Calculated 211 mg/dl [facility] Comment: Desirable LDL: ? less than 100 mg/dL Near Optimal/Above Optimal LDL: ??110-129 mg/dL Borderline High LDL: ? 130-159 mg/dL High LDL: ?160-189 mg/dL Very High LDL: ? greater than or equal to ?190 mg/dL Triglycerides 214 mg/dL [facility] Comment: Desirable Triglyceride: ? less than 150 mg/dL Borderline High Triglyceride ??150-199 mg/dL High Triglyceride: ?200-499 mg/dL Very High Triglyceride: ? greater than or equal to ? 5OO mg/dL 07/19/2021 6:45 AM EST us Eris Name HISTORICAL/NON ORDERABLE LABS Fi nal Result [facility] [address] [place] [address], * Hm Colonoscopy (01/29/2019 3:12 PM EDT) Colonoscopy Normal Normal Narrative Ling Mckeon - 01/29/2019 3:12 PM EDT Recommended 10 year follow up Historical Provider HEALTH MAINTENANCE Final Result * HPV mRNA E6/E7 (04/26/2017 10:15 AM EDT) HPV mRNA E6/E7 Not Detected NOT DETECTED [facility] Comment: This test was performed using the APTIMA(R) HPV Assay ([employer] This assay detects E6/E7 viral messenger RNA (mRNA) from 14 high-risk HPV types (16,18,31,33,35,39,45,51, 52,56,58,59,66,68). For additional information please refer to: http://Exinda.AcadiaSoft/faq/QDV601k0 (This link is being provided for informational/ educational purposes only.) Test Performed by [id number], [facility], [address] [place] [address] John Ji M.D., Ph.D., Director of Laboratories , [facility] [id number] Please note: ??Effective 03/07/2016, HPV testing will be performed using [employer]'s APTIMA test which targets mRNA. Detecting mRNA instead of DNA, as in older methods, offers significant improvements in specificity. 04/26/2017 10:1 5 AM EDT us Tamia Barger CNM HISTORICAL/NON ORDERABLE LABS Final Result [facility] [address] from Last 3 Months or Most Recently Relevant to Health Maintenance Insurance [employer] Care Teams Navy Diver Relationship Specialty Start Date End Date Name, MD Eris [address] [place] [phone] PCP - General Family Medicine 07/14/15
--- OUTSIDE RECORDS SUMMARY | 2024-11-08 11:28 | XMS_ITS | Encounter Summary ---
Author Organization [employer] Address [address] [facility] 7 [place] [address] Care Team Providers Care Cutter V Groove Name Role Phone Name, Eris FELDMAN Primary Care Provider [phone] Encounter Details Date Type Department Care Team (Late Contact Info) Description 11/25/2022 Abstract [facility]ICINE [address] [place] [address] [phone] Eris Chappell MD [address] [place] [address] [phone] Social History Tobacco Use Types Packs/Day Years [...] Description 01/29/2025 3:45 PM EDT Office Visit [facility] [address] [place] [address] [phone] Eris Chappell MD [address] [place] [address] [phone] documented as of this encounter Procedures Procedure [...] on filedocumented in this encounter Care Teams Cutter V Groove Relationship Specialty Start Date End Date Name, MD Eris [address] [place] [address] PCP - General Family Medicine 07/14/15 documented as of this encounter
== END 2024-11-08 12:09 | disposition home or self-care (01) ==
LOC: HO.HPS 10:58
PROVIDERS: PCP Internal Medicine Geriatric Medicine; Referring Provider Internal Medicine Geriatric Medicine; Visit Provider Physician Assistant Medical
DX: Z87.891 Personal history of nicotine dependence (principal)
CPT/HCPCS: G0296

== ENCOUNTER 2024-11-08 11:24 | Outpatient (REF) | payer OTHER, SELFPAY ==
--- NOTE | ~2024-11-08 | CT_ITS ---
CLINICAL HISTORY: Z87.891 - Personal history of nicotine dependence CT lung cancer screening (LDCT) Comparison: None Technique: Axial CT images of the chest using low-dose technique. Referring provider counseled the patient on shared decision-making for LDCT screening. Additional counseling was provided on smoking cessation. Effective radiation dose total: DLP 69.3 mGycm, CTDIvol 2.1 mGy. Findings: Lung: No evidence of pneumonia nor edema. Coronary artery calcifications: No calcifications are seen Limited upper abdomen: Unremarkable Other: None Impression: 1. LungRADS 1: Negative exam. Continue annual screening with low dose Chest CT in 12 months. ##L1## Category 1: Normal; continue annual screening Category 2: Benign appearance or behavior, continue annual screening Category 3: Probably benign, [address] recommended Category 4A: Suspicious, [address] recommended; may consider PET/CT Category 4B: Suspicious, Additional diagnostics and/or tissue sampling recommended Category 4X: Suspicious, Additional diagnostics and/or tissue sampling recommended Category 0: Recalls (incomplete screen due to Incomplete coverage, Noise, Respiratory motion, Expiration, Obscured by acute abnormality) This document has been electronically signed by: Syed Bartlett MD on 11/08/2024 17:35:50
== END 2024-11-08 11:25 | disposition home or self-care (01) ==
LOC: HO.CT 11:24
PROVIDERS: PCP Internal Medicine Geriatric Medicine; Visit Provider Physician Assistant Medical
DX: Z12.2 Encounter for screening for malignant neoplasm of respiratory organs (principal); Z87.891 Personal history of nicotine dependence
CPT/HCPCS: 71271

== ENCOUNTER → 2024-11-08 11:29 | Outpatient (BNV) | payer OTHER, SELFPAY | PROVIDERS: PCP Internal Medicine Geriatric Medicine; Visit Provider Radiology Diagnostic Radiology | DX: Z87.891 Personal history of nicotine dependence (principal) | CPT/HCPCS: 71271 ==

== ENCOUNTER 2024-11-22 14:37 | Outpatient (REF) | payer OTHER, SELFPAY ==
--- OUTSIDE RECORDS SUMMARY | 2024-11-22 14:39 | XMS_ITS | Encounter Summary ---
Author Organization [employer] Address [address] [place] [address] [address] [place] [address] Care Team Providers Care Transportation Engineering Technician Name Role Phone Name, Eris FELDMAN Primary Care Provider [phone] Encounter Details Date Type Department Care Team ([facility] Contact Info) Description 11/25/2022 Abstract [facility] MEDICINE [address] [place] [address] [phone] Eris Chappell MD [address] [place] [phone] Social History Tobacco Use Types Packs/Day Years [...] Upcoming Encounters Date Type Department Care Team ([facility] Contact Info) Description 01/29/2025 3:45 PM EDT Office Visit [facility] [address] [place] [address] [phone] Eris Chappell MD [address] [place] [address] [phone] documented as of this encounter Procedures Procedure [...] on filedocumented in this encounter Care Teams Transportation Engineering Technician Relationship Specialty Start Date End Date Name, MD Eris [address] [place] [address] PCP - General Family Medicine 07/14/15 documented as of this encounter
== END 2024-11-22 14:38 | disposition home or self-care (01) ==
LOC: HO.MAMMO 14:37
PROVIDERS: PCP Internal Medicine Geriatric Medicine; Visit Provider Internal Medicine Geriatric Medicine
DX: Z12.31 Encounter for screening mammogram for malignant neoplasm of breast (principal)
CPT/HCPCS: 77063; 77067

== ENCOUNTER → 2024-11-22 14:45 | Outpatient (BNV) | payer OTHER, SELFPAY | PROVIDERS: PCP Internal Medicine Geriatric Medicine; Visit Provider Internal Medicine | DX: Z12.31 Encounter for screening mammogram for malignant neoplasm of breast (principal) | CPT/HCPCS: 77063; 77067 ==

== ENCOUNTER 2025-01-28 06:34 | Outpatient (REF) | payer OTHER, SELFPAY ==
[2025-01-28 07:04] LABS: MANUAL DIFF FLAG NO
[2025-01-28 07:45] LABS: Hematocrit 37.6 % (37.0-47.0); Hemoglobin 12.0 g/dl (12.0-16.0); Imm Gran Abs Auto 0.04 X10*3/uL (0.00-0.03); Imm Gran Pct Auto 0.5 % (0.0-0.4); Lymphocytes Absolute Auto 3.5 X10*3/uL (1.2-4.9); Mean Corpuscular HGB Conc 31.9 g/dl (31.0-35.0); Mean Corpuscular Hemoglobin 27.2 pg (27.0-33.0); Mean Corpuscular Volume 85.3 fL (80.0-98.0); NRBC Abs Auto 0.000 X10*3/uL (0.0-0.012); NRBC Pct Auto 0.0 /100WBC (0.0-0.2); Platelet Count 363 X10*3/uL (160-400); Red Blood Count 4.41 X10*6/uL (4.20-5.50); White Blood Count 8.8 X10*3/uL (4.8-10.8)
[2025-01-28 08:14] LABS: Alanine Aminotransferase 40 U/L (0-31); Albumin Level 4.6 g/dL (3.5-5.0); Alkaline Phosphatase 102 U/L (39-117); Anion Gap 14 (12-20); Aspartate Amino Transferase 38 U/L (5-31); Blood Urea Nitrogen 11 mg/dL (9-16); Calcium 9.1 mg/dL (8.4-10.2); Carbon Dioxide 24 mmol/L (22-29); Chloride 107 mmol/L (96-108); Cholesterol 246 mg/dL (<200); Estimated Glomerular Filt Rate 56; HDL Cholesterol 32 mg/dL (>40); Potassium 4.4 mmol/L (3.3-5.1); Sodium 141 mmol/L (135-145); Total Protein 7.5 g/dL (6.5-8.0); Triglycerides 182 mg/dL (<150)
[2025-01-28 12:47] LABS: Microalbum/Creatinine Ratio Ur 50.2 ug/mg cr (<30)
== END 2025-01-28 06:35 | disposition home or self-care (01) ==
LOC: HO.LAB 06:34
PROVIDERS: PCP Internal Medicine Geriatric Medicine; Visit Provider Internal Medicine Geriatric Medicine
DX: E11.9 Type 2 diabetes mellitus without complications (principal); E66.01 Morbid (severe) obesity due to excess calories; E03.9 Hypothyroidism, unspecified; R79.89 Other specified abnormal findings of blood chemistry
CPT/HCPCS: 36415; 80053; 80061; 82043; 82306; 82570; 85025

== ENCOUNTER 2025-02-23 11:57 | Emergency (ER) | payer OTHER, SELFPAY ==
--- NOTE | ~2025-02-23 | CT_ITS ---
CLINICAL HISTORY: Left flank left abdominal pain CT ABDOMEN AND PELVIS WITHOUT CONTRAST Comparison: CT - CT ABDOMEN PELVIS W IV CON - 10/29/24 23:19 EDT Findings: The lung bases are clear. No hydronephrosis or urolithiasis. No acute abnormalities in the remaining solid organs. Enlarged liver with diffuse fatty infiltration. Right hepatic lobe measures 20.3 cm. Solitary calcified granuloma in the spleen. No large calcified gallstone. No AAA. No bowel obstruction, pneumoperitoneum, or pneumatosis. No ascites or organized fluid collection. No significant mesenteric or paracolic edema. The appendix is identified. No acute appendicitis. Hysterectomy. Nearly empty urinary bladder. Multiple pelvic phleboliths. No acute fracture. IMPRESSION: 1. No acute obstructive uropathy or urolithiasis. 2. No obstructive or acute inflammatory changes in the gastrointestinal tract. 3. Hepatomegaly and hepatic steatosis. This document has been electronically signed by: Lilibeth Galo DO on 02/23/2025 14:32:54
[2025-02-23 12:00] VITALS: BP 138/65; PULSE 80; RESP 18; O2SAT 98; BMI 42.1
--- NOTE | 2025-02-23 12:00 | ED.ABDPAIN ---
HPI - Abdominal Pain General Chief Complaint: Abdominal Pain Stated Complaint: left side abd pain Time Seen by Provider: 02/23/25 12:55 Source: patient Mode of arrival: ambulatory Limitations: no limitations History of Present Illness ED Provider: DR. Biswas HPI narrative: A 50-year-old female came in for evaluation of left-sided abdominal pain x1 week, pain is described as intermittent sharp pain, with no clear aggravating factor or relieving factor, no trigger factors, no nausea, no vomiting, normal bowel movement with passing flatus, no dysuria, no frequency urination, no blood in the urea, no vaginal discharge, no recent injury to the back or history of strenuous activity,or heavy lifting, no pulled muscle. Past surgical history significant for hysterectomy. Related Data Home Medications ?Medication ?Instructions ?Recorded ?Confirmed dextroamphetamine-amphetamine 10 1 tab PO DAILY 10/19/20 11/24/23 mg tablet dextroamphetamine-amphetamine ER 1 cap PO QAM 10/19/20 11/24/23 30 mg 24hr capsule,extend release levothyroxine 150 mcg tablet 150 mcg PO DAILY 10/19/20 11/24/23 naproxen 500 mg tablet 500 mg PO BID 10/19/20 11/24/23 omeprazole 40 mg capsule,delayed 40 mg PO DAILY 10/19/20 11/24/23 release clindamycin phosphate 1 % topical 1 appl topical BID 08/19/22 02/14/23 solution topiramate 25 mg tablet 50 mg PO DAILY 02/02/23 11/24/23 duloxetine 60 mg capsule,delayed 120 mg PO DAILY 11/24/23 11/24/23 release Previous Rx's ?Medication ?Instructions ?Recorded loperamide 2 mg capsule (Imodium 2 mg PO Q4H PRN loose stool #12 10/30/24 A-D) caps ondansetron 4 mg disintegrating 4 mg PO Q8H PRN nausea and 10/30/24 tablet vomiting #20 tabs vitamin B complex-folic acid 0.4 1 tab PO DAILY #90 tabs 02/12/25 mg tablet cyclobenzaprine 10 mg tablet 10 mg PO TID PRN muscle spasm #20 02/23/25 tabs Allergies Allergy/AdvReac Type Severity Reaction Status Date / Time bupropion (From WELLBUTRIN) Allergy Severe HIVES Verified 02/23/25 12:02 hydrocodone (From VICODIN) Allergy Severe VOMITING Verified 02/23/25 12:02 oxycodone (From OXYCONTIN) Allergy Severe VOMITING, Verified 02/23/25 12:02 itching tramadol (TRAMADOL) Allergy Severe VOMITING Verified 02/23/25 12:02 egg Allergy Intermediate Stomach Verified 02/23/25 12:02 Upset adhesive tape Allergy Mild Rash Verified 02/23/25 12:02 APRICOT Allergy Severe HIVES Uncoded 02/23/25 12:02 NARCOTICS Allergy Severe VOMITING Uncoded 02/23/25 12:02 Review of Systems Review of Systems All other systems are reviewed and are negative Constitutional: Reports as per HPI and Reports no additional constitutional complaints Eyes: Reports as per HPI and Reports no additional eye complaints Reports system reviewed and no additional complaints, except as documented Cardiovascular: Reports as per HPI and Reports no additional cardiovascular complaints Respiratory: Reports as per HPI and Reports no additional respiratory complaints Gastrointestinal: Reports as per HPI and Reports no additional gastrointestinal complaints Genitourinary: Reports no additional female genitourinary complaints Musculoskeletal: Reports no additional musculoskeletal complaints Skin/Breast: Reports system reviewed and no additional complaints, except as docu Psychiatric: Reports no additional psychiatric complaints Endocrine: Reports no additional endocrine complaints Hematologic/Lymphatic: Reports no additional hematologic/lymphatic complaints Allergic/Immunologic: Reports no additional allergic/immunologic complaints Reports system reviewed and no additional complaints, except as documented and Reports Abnormal speech present [facility] Past Medical History Medical History Personal history of nicotine dependence History of postoperative nausea and vomiting B12 deficiency Lumbar radiculopathy Anemia Labial abscess Hx of pilonidal cyst Surgical History History of colonoscopy History of esophagogastroduodenoscopy (EGD) History of abdominoplasty History of hysterectomy History of shoulder surgery History of elbow surgery History of hand surgery Family History Family History Brother HTN (hypertension) Brother HTN (hypertension) Father HTN (hypertension) Social History Social History Patient Tobacco Use Status: Former Tobacco user Tobacco use type: Cigarette Years Smoked: (onset 14yo, 2-3ppd x 33yrs, 75pyh - quit 2022 - now vaping) Smoked in Last 30 Days: No e-Cigarette/Vaping Use: Currently Using Use of substances other than those prescribed or required for medical reasons: No Advance Directives: No Advance Directives Information Provided: No Do you have a plan to hurt others: No Plan Patient : No 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 Blood pressure elevated. Heart rate normal. Respiratory rate normal. Temperature normal. Oxygen saturation normal. Appearance: Alert. Oriented X3. No acute distress. Head: Normal external exam. Normocephalic. Atraumatic. No Weber signs noted. No raccoon eyes noted Eyes: PERRLA. EOMI. Conjunctiva and sclera normal. Eyelids normal. ENT: TM's Normal. Pharynx normal. Uvula midline. Moist mucous membranes. No trismus noted. No drooling noted. No muffled voice noted. Neck: Normal inspection. Neck supple. FROM. No adenopathy. Thyroid Normal. No meningeal signs. No neck mass noted. CVS: Normal heart rate and rhythm. Heart sound normal. No murmurs noted. Pulses normal throughout. Respiratory: No respiratory distress. Painless inspiration. Breath sounds normal. No wheezes/rales/rhonchi noted. Chest nontender. No accessory muscle usage noted or decreased air movement noted. Abdomen: Soft and nontender. Bowel sounds normal in all 4 quadrants. No distention noted. No organomegaly noted. No visible injury noted. Back: No CVA tenderness. Full range of motion noted. Skin: Skin warm and dry. Normal skin color. Normal skin turgor. No rashes/lesions/lacerations noted. Extremities: No lower extremity edema. Extremities exhibit normal range of motion. Extremities nontender. Neuro: Oriented X 3. Cranial nerve exam: II-XII are grossly intact No motor deficit. No sensory deficit. Reflexes normal. Course Course Course Narrative: This is a Rapid Medical Examination (RME) performed by Selina Watts PA-C in triage. Full HPI, ROS, assessment and treatment plan per primary provider in the Main ED. Hx: 50 yo F here for eval of intermittent L flank pain x1 week that has now moved to her left abdomen. normal PO intake. 4/10 pain at present. last normal BM 2 hrs ago. no urinary sx. Plan: labs, UA Reevaluation(s) Reevaluation #1: Left-sided abdominal pain on and off for the past week, no known history of trauma or pulled muscle, CT ruled out kidney stone or any other intra-abdominal pathology, labs are unremarkable, clean UA. Patient do not believe it is muscular related pain however with negative workup will start the patient on muscle relaxant and patient is already taking naproxen to control her pain. Rest for 3-4 days, no strenuous activity. Time: 15:08 Medical Decision Making Differential Diagnosis Differential Diagnoses: The differential diagnosis associated with the presentation includes (Ureteric stone, pyelonephritis, UTI, colitis, diverticulitis, SBO, electrolyte derangement, severe anemia.) Admission/Observation Consideration of admission/observation: Escalation of care including admission/observation considered Lab Data MDM Lab Attestation statement: I reviewed the patient's lab results. 02/23/25 12:14 02/23/25 12:14 Labs: Lab Results 02/23/25 02/23/25 Range/Units 12:14 13:24 WBC 8.3 (4.8-10.8) X10*3/uL RBC 4.31 (4.20-5.50) X10*6/uL Hgb 12.0 (12.0-16.0) g/dl Hct 36.5 L (37.0-47.0) % MCV 84.7 (80.0-98.0) fL MCH 27.8 (27.0-33.0) pg MCHC 32.9 (31.0-35.0) g/dl RDW 13.4 (11.0-16.0) % Plt Count 314 (160-400) X10*3/uL MPV 10.2 (9.4-12.3) fL Immature Gran % (Auto) 0.7 H (0.0-0.4) % Neut % (Auto) 50.6 (45-73) % Lymph % (Auto) 40.0 (20-40) % [place] % (Auto) 6.5 (2-11) % Eos % (Auto) 1.8 (0-4) % Baso % (Auto) 0.4 (0-2) % Lymph # (Auto) 3.3 (1.2-4.9) X10*3/uL [place] # (Auto) 0.5 (0.1-1.2) X10*3/uL Eos # (Auto) 0.2 (0.0-0.4) X10*3/uL Baso # (Auto) 0.0 (0.0-0.2) X10*3/uL Abs Immat Gran (auto) 0.06 H (0.00-0.03) X10*3/uL Absolute Neuts (auto) 4.2 (2.0-8.3) x10*3/uL Absolute Nucleated RBC 0.000 (0.0-0.012) X10*3/uL Nucleated RBC % (auto) 0.0 (0.0-0.2) /100WBC Sodium 140 (135-145) mmol/L Potassium 3.9 (3.3-5.1) mmol/L Chloride 105 (96-108) mmol/L Carbon Dioxide 24 (22-29) mmol/L Anion Gap 15 (12-20) BUN 15 (9-16) mg/dL Creatinine 1.09 (0.5-1.4) mg/dL Estim Creat Clear Calc 69.2 Estimated GFR 53 Random Glucose 105 (60-115) mg/dL Calcium 9.0 (8.4-10.2) mg/dL Magnesium 1.5 L (1.6-2.6) mg/dL Total Bilirubin 0.2 (0.0-1.0) mg/dL AST 34 H (5-31) U/L ALT 47 H (0-31) U/L Alkaline Phosphatase 92 (39-117) U/L Total Protein 7.8 (6.5-8.0) g/dL Albumin 4.5 (3.5-5.0) g/dL Lipase 12 (8-78) U/L Beta HCG, Quant 3 mIU/mL Urine Color Yellow Urine Appearance Clear Urine pH 7.5 (5.0-9.0) Ur Specific [place] 1.015 (1.005-1.025) Urine Protein Trace (Neg-Trace) mg/dL Urine Glucose (UA) Negative (Negative) mg/dL Urine Ketones Negative (Negative) mg/dL Urine Blood Negative (Negative) Urine Nitrite Negative (Negative) Ur Leukocyte Esterase Negative (Negative) Independent Interpretation I performed an independent interpretation of an: CT Scan (1. No acute obstructive uropathy or urolithiasis. 2. No obstructive or acute inflammatory changes in the gastrointestinal tract. 3. Hepatomegaly and hepatic steatosis.) Radiology Impression Discussion of test interpretation with radiology: I have reviewed the radiologist's reading. Discharge Plan Discharge Clinical Impression: Acute myofascial pain Patient Disposition: Home, Self-Care Instructions: Musculoskeletal Pain (ED) Prescriptions: New cyclobenzaprine 10 mg tablet 10 mg PO TID PRN (Reason: muscle spasm) Qty: 20 0RF No Action vitamin B complex-folic acid 0.4 mg tablet 1 tab PO DAILY Qty: 90 2RF loperamide [Imodium A-D] 2 mg capsule 2 mg PO Q4H PRN (Reason: loose stool) Qty: 12 0RF Rx Instructions: administer after each loose stool until symptoms controlled; do not exceed 8 mg per 24 hrs ondansetron 4 mg tablet,disintegrating 4 mg PO Q8H PRN (Reason: nausea and vomiting) Qty: 20 0RF duloxetine 60 mg capsule,delayed release(DR/EC) 120 mg PO DAILY dextroamphetamine-amphetamine 30 mg capsule,extended release 24hr 1 cap PO QAM levothyroxine 150 mcg tablet 150 mcg PO DAILY dextroamphetamine-amphetamine 10 mg tablet 1 tab PO DAILY omeprazole 40 mg capsule,delayed release(DR/EC) 40 mg PO DAILY naproxen 500 mg tablet 500 mg PO BID clindamycin phosphate 1 % solution 1 appl topical BID topiramate 25 mg tablet 50 mg PO DAILY Referrals: Name,MD Eris [Primary Care Provider, Internal Medicine] Stand Alone Forms: Work/School Release Print Language: Latvian
[2025-02-23 12:18] LABS: MANUAL DIFF FLAG NO
[2025-02-23 12:20] LABS: Hematocrit 36.5 % (37.0-47.0); Hemoglobin 12.0 g/dl (12.0-16.0); Imm Gran Abs Auto 0.06 X10*3/uL (0.00-0.03); Imm Gran Pct Auto 0.7 % (0.0-0.4); Lymphocytes Absolute Auto 3.3 X10*3/uL (1.2-4.9); Mean Corpuscular HGB Conc 32.9 g/dl (31.0-35.0); Mean Corpuscular Hemoglobin 27.8 pg (27.0-33.0); Mean Corpuscular Volume 84.7 fL (80.0-98.0); NRBC Abs Auto 0.000 X10*3/uL (0.0-0.012); NRBC Pct Auto 0.0 /100WBC (0.0-0.2); Platelet Count 314 X10*3/uL (160-400); Red Blood Count 4.31 X10*6/uL (4.20-5.50); White Blood Count 8.3 X10*3/uL (4.8-10.8)
--- OUTSIDE RECORDS SUMMARY | 2025-02-23 12:20 | XMS_ITS | Encounter Summary ---
Author Organization [employer] Address [address] [facility] [address] [place] [address] Care Team Providers Care Ruby Software Developer Name Role Phone Name, Eris FELDMAN Primary Care Provider [phone] Reason for Visit * Reason Comments Med Refill Encounter Details Date Type Department Care Team ([facility] st Contact Info) Description 01/20/2025 Refill [facility] [address] [place], [place] [phone] Name, MD Eris [address] [place] [address] Social History Tobacco Use Types Packs/Day Years [...] Care Team (Late st Contact Info) Description 04/22/2025 4:00 PM EDT Office Visit [facility] [address] [place] [phone] Name, MD Eris [address] [place] [address] documented as of this encounter Visit Diagnoses Not on filedocumented in this encounter Additional Health Concerns Assessment Noted Time PHQ-9 Depression Total Score: 11 024 4:10 PM EST documented as of this encounter Care Teams Ruby Software Developer Relationship Specialty Start Date End Date Name, MD Eris [address] [place] [id number] PCP - General Family Medicine 07/14/15 documented as of this encounter
--- OUTSIDE RECORDS SUMMARY | 2025-02-23 12:20 | XMS_ITS | Encounter Summary ---
Author Organization [employer] Address [address] [place] [address] 7 [place] [address] Care Team Providers Care Mechanic Driver Name Role Phone Name, Eris FELDMAN Primary Care Provider [phone] Encounter Details Date Type Department Care Team ([facility] Contact Info) Description 11/25/2022 Abstract [facility] [address] [place] [phone] Eris Chappell MD [address] [place] [address] [phone] Social History Tobacco Use Types Packs/Day Years [...] Upcoming Encounters Date Type Department Care Team ([facility] Contact Info) Description 04/22/2025 4:00 PM EDT Office Visit [facility] [address] [place] [address] [phone] Eris Chappell MD [address] [place] [address] [phone] documented as of this encounter Procedures Procedure [...] on filedocumented in this encounter Care Teams Mechanic Driver Relationship Specialty Start Date End Date Name, MD Eris [address] [place] [address] PCP - General Family Medicine 07/14/15 documented as of this encounter
--- OUTSIDE RECORDS SUMMARY | 2025-02-23 12:20 | XMS_ITS | Encounter Summary ---
Author Organization [employer] Address [address] [facility] 7 [place] [address] Care Team Providers Care Mutuel Department Manager Name Role Phone Name, Eris FELDMAN Primary Care Provider [phone] Reason for Visit * Reason Comments Med Refill Encounter Details Date Type Department Care Team ([facility] st Contact Info) Description 02/10/2025 Refill [facility] [address] [place], [place] [phone] Name, MD Eris [address] [place] [address] Type 2 diabetes mellitus without complication, without long-term current use of insulin ([facility]) Social History Tobacco Use Types Packs/Day Years Used Date Smoking Tobacco: Every Day Cigarettes Comments:vape Alcohol Use Standard Drinks/Week Comments Not Currently 0 (1 standard drink = 0.6 oz pur e alcohol) Depression Answer Date Recorded Patient Health Questionnaire-9 Score 15 01/29/2025 Patient Health Questionnaire-9 Score 15 01/29/2025 Last PHQ-9: Questionnaire Data Not on file 0 01/29/2025 Housing Stability Answer Date Recorded What is [...] Answer Date Recorded Patient Health Questionnaire-2 Score 6 01/29/2025 Internet Access Answer Date Recorded Internet Access [...] Description 04/22/2025 4:00 PM EDT Office Visit [facility] [address] [place] [address] NameEris MD [address] [place] [address] documented as of this encounter Visit Diagnoses Diagnosis Type 2 diabetes mellitus without complication, without long-term current use of insulin ([facility]) documented in this encounter Additional Health Concerns Assessment Noted Time PHQ-9 Depression Total Score: 15 025 3:57 PM EDT documented as of this encounter Care Teams Mutuel Department Manager Relationship Specialty Start Date End Date Eris Chappell MD [address] [place] [address] PCP - General Family Medicine 07/14/15 documented as of this encounter
--- OUTSIDE RECORDS SUMMARY | 2025-02-23 12:20 | XMS_ITS | Clinical Summary ---
Author Organization [employer] Address [address] [place] [address] 7 [place] [address] Care Team Providers Care Field Operations Technician Name Role Phone Name, Eris FELDMAN Primary Care Provider [phone] Allergies Active Allergy Reactions Criticality Noted Date [...] complication, without long-term current use of insulin ([facility]),Morb id obesity (CMS/[facility]),Pulley Worker charly pain of right ankle USE DIRECTED TO TEST BLOOD SUGAR ONCE DAILY 1 kit 08/23/19 24 Active glucose blood (Contour Next Test) test strip USE DIRECTED TO TEST BLOOD SUGAR ONCE DAILY 100 each 11 08/23/19 24 Active Microlet Lancets miscIndication s:Type 2 diabetes mellitus without complication, without long-term current use of insulin ([facility]),Morb id obesity (CMS/[facility]),Pulley Worker charly pain of right ankle USE DIRECTED TO TEST BLOOD SUGAR EVERY MORNING 100 each 11 08/23/19 24 Active pen needle 32G x 4 mm miscIndication s:Type 2 diabetes mellitus without complication, without long-term current use of insulin ([facility]) Inject under the skin Once daily. Use [...] BREAKFAST. 90 capsule 3 04/30/20 24 Active levothyroxine (Synthroid, Levoxyl) 112 MCG tablet TAKE 1 TABLET BY MOUTH EACH MORNING BEFORE BREAKFAST 90 tablet 1 10/23/19 25 Active Adderall XR 30 MG 24 hr capsule 06/26/19 17 Active semaglutide (Ozempic) 2 MG/1.5ML solution pen-injector Inject 0.25mg subcutaneously q week x 4 weeks then incase to 0.5mg subcutaneously q week. 1.5 mL 3 01/30/20 25 Active Dulaglutide (Trulicity) 1.5 MG/0.5ML solution auto-injectorI ndications:Typ e 2 diabetes mellitus without complication, without long-term current use of insulin ([facility]) Inject 1.5 mg under the skin 1 (one) time per week. 2 mL 3 10/03/19 25 025 Discontin ued(Thera py completed ) Active Problems Problem Noted Date Diagnosed Date [...] Encounters Date Type Department Care Team Description 02/11/2025 Telephone [facility] [address] [place] [address] [phone] NameEris MD Prior Authorization 02/10/2025 Refill [facility] [address] [place] [phone] NameEris MD Type 2 diabetes mellitus without complication, without long-term current use of insulin ([facility]) 01/29/2025 3:45 PM EDT Office Visit [facility] [address] [place] [phone] NameEris MD Type 2 diabetes mellitus without complication, without long-term current use of insulin ([facility]) (Primary Dx); Refusal of statin medication by patient; Acquired hypothyroidism; Chronic bilateral low back pain with right-sided sciatica 01/29/2025 Travel 01/20/2025 Refill [facility] [address] [place] [phone] NameEris MD from Last 3 Months Immunizations Immunization Administration Dates Next Due Influenza injectable quadriv alent preservative free 03/15/2016,08/03/2015 Influenza, IIV3, injectable 03/26/2013,1 ,03/26/2011,07/03,04/03/2008 Novel [id number], all formulations 07/03/2009 Pneumococcal Polysaccharide PPSV23 08/03/2015 [...] Sign Reading Time Taken Comments Blood Pressure 154/84 01/29/2025 3:55 PM EDT Pulse 94 01/29/2025 3:55 PM EDT Temperature 36.2 C (97.1 F) 01/29/2025 3:55 PM EDT Respiratory Rate 16 01/29/2025 3:55 PM EDT Oxygen Saturation 97% 01/29/2025 3:55 PM EDT Inhaled Oxygen Concentration - - Weight 106 kg (233 lb) 01/29/2025 3:55 PM EDT Height 157.5 cm (5' 2 ) 01/29/2025 3:55 PM EDT Body Mass Index 42.62 01/29/2025 3:55 PM EDT Plan of Treatment Upcoming Encounters Date Type Department Care Team (Late st Contact Info) Description 04/22/2025 4:00 PM EDT Office Visit [facility] [address] [place] [address] Name, MD Eris [address] [place] [address] Health Maintenance Due Date Last Done Comments CT Colonography 1974 FIT DNA/Cologuard 1974 FIT 1975 FOBT 1975 HIV Screening 1975 Sigmoidoscopy 1974 Diabetes: Foot Exam 01/04/1984 Eye Exam 01/04/1984 Family Planning (PISQ) 1989 Hepatitis C Screening 01/04/1992 Hepatitis B Vaccines (1 of 3 - 19+ 3-dose series) 1993 Pap Smear 1995 Pneumococcal Vaccine: 50+ Years (2 of 2 - PCV) 08/03/2016 08/03/2015 Cervical Cancer Screening 04/26/2022 HPV/Cotest 04/26/2022 04/26/2017 Zoster Vaccines (1 of 2) 01/04/2024 COVID-19 Vaccine ( - season) 2024 06/21/2021, 05/28/2021 Influenza Vaccine (#1) 2025 6, 08/03/2015, 03/26/2013, Additional history exists Diabetes: Hemoglobin A1C 04/03/2025 025, 03/04/2024, 08/22/2023, Additional history exists Alcohol/Substance Use Screening 06/07/2025 06/07/2024 SDOH Screening 06/07/2025 06/07/2024 Depression Monitoring 08/01/2025 01/29/2025, 025 Disability Screening 10/24/2025 10/24/2024 Diabetes: Urine Protein Screening 01/28/2026 01/28/2025 Lipid Panel 01/28/2026 01/28/2025, 06/27, 05/04/2021 Tobacco Screening 01/29/2026 01/29/2025 Mammogram 11/22/2026 11/22/2024, 09/25, 11/20/2018, Additional history exists DTaP/Tdap/Td Vaccines (3 - Td or Tdap) [...] Name Priority Date/Time Associated Diagnosis Comments POCT GLUCOSE Routine 01/29/2025 4:02 PM EDT Type 2 diabetes mellitus without complication, without long-term current use of insulin (CMS/HCC) ALBUMIN, RANDOM URINE W/CREATININE Routine 01/28/2025 10:43 AM EDT Type 2 diabetes mellitus without complication, without long-term current use of insulin (CMS/HCC) Morbid obesity (CMS/HCC) Acquired hypothyroidism VITAMIN D,25-OH,TOTAL,IA Routine 01/28/2025 7:03 AM EDT Low vitamin D level LIPID PANEL, STANDARD Routine 01/28/2025 7:03 AM EDT Type 2 diabetes mellitus without complication, without long-term current use of insulin (CMS/HCC) Morbid obesity (CMS/HCC) Acquired hypothyroidism COMPREHENSIVE METABOLIC PANEL Routine 01/28/2025 7:03 AM EDT Type 2 diabetes mellitus without complication, without long-term current use of insulin (CMS/HCC) Morbid obesity (CMS/HCC) Acquired hypothyroidism CBC WITH AUTO DIFFERENTIAL Routine 01/28/2025 7:03 AM EDT Type 2 diabetes mellitus without complication, without long-term current use of insulin (CMS/HCC) Morbid obesity (CMS/HCC) Acquired hypothyroidism BI MAMMOGRAM SCREENING TOMOSYNTHESIS BILATERAL Routine 11/22/2024 2:45 PM EDT Encounter for screening mammogram for malignant neoplasm of breast POCT GLYCATED HEMOGLOBIN, TOTAL Routine 10/02/2024 4:10 PM EDT Type 2 diabetes mellitus without complication, without long-term current use of insulin (CMS/HCC) HM COLONOSCOPY Routine 01/29/2019 3:12 PM EDT ZZZ HISTORICAL HPV MRNA E6/E7 Routine 04/26/2017 10:15 AM EDT from Last 3 Months or Most Recently Relevant to Health Maintenance Results * POCT Glucose (01/29/2025 4:02 PM EDT) Pathologist [facility] Glucose Blood, POC 135 60 - 200 mg/dL QC Media Lot # [id number] Lot# Expiration Date Blood Capillary blood specimen / Unknown 01/29/2025 4:02 PM EDT us Eris Name POINT OF CARE TEST ENTER/EDIT OR DERABLES Final Result * (ABNORMAL) Albumin, Random Urine W/Creatinine (01/28/2025 10:43 AM EDT) Pathologist [facility] Creatinine, Urine 367.85 mg/dL [facility] Microalbumin Urine 185.0 mg/L [facility] Microalbum Creatinine Ratio Ur 50.2(H) <30 ug/mg cr [facility] Comment:Albumin/Creatinine R atio Reference Ranges: Normal: < 30 ug/mg creatinine Microalbuminuria: 30 - 300 ug/mg creatinineClinical Albuminuria: > 300 ug/mg creatinine Urine (Urine, Random) 01/28/2025 10:43 AM EDT 01/28/2025 11:34 AM EDT us Eris Chappell MD LAB URINE ORDERABLES Final Resul t [facility] [address] [place] [address] [phone] * (ABNORMAL) Vitamin D, 25-Hydroxy, Total, Immunoassay (01/28/2025 7:03 AM EDT) Vitamin D 25-OH Total 27.3(L) >30 ng/mL [facility] Comment: Health Based Reference Values*< 20 ng/mL Sehujdyue76-16 ng/mL Insufficient> 30 ng/mL Sufficient*Henrry SMALL. N Engl J Med. 2007;357:266-280There is no well-established upper level of normal vitamin Dlevels. Some laboratories use 50 ng/mL as an upper limit ofnormal. However, toxicity is patient-dependent and may occurat any level. Careful correlation with the patient'spresentation is necessary and, if there is concern forvitamin D toxicity, treatment should be consideredirrespective of the serum level.Care must be taken in interpreting Vitamin D results fromdifferent laboratories and methodologies. Published datademonstrated that results from patients undergoinghemodialysis may show a negative bias when tested withvarious automated 25-OH vitamin D assays when compared toLC-MS/MS.When testing samples from patients whose predominant form ofVitamin D is Vitamin D2, such as patients receiving VitaminD2 supplementation, results that are subtherapeutic shouldbe confirmed with another method such as LC-MS/MS. Blood Venous blood specimen / Unknown 01/28/2025 7:03 AM EDT 01/28/2025 7:03 AM EDT us Eris Chappell MD LAB BLOOD ORDERABLES Final Resul t [facility] [address], [place] [phone] * (ABNORMAL) CBC auto differential (01/28/2025 7:03 AM EDT) White Blood Count 8.8 4.8 - 10.8 X10*3/uL [facility] Red Blood Count 4.41 4.20 - 5.50 X10*6/uL [facility] Hemoglobin 12.0 12.0 - 16.0 g/dl [facility] Hematocrit 37.6 37.0 - 47.0 % [facility] Mean Corpuscular Volume 85.3 80.0 - 98.0 fL [facility] Mean Corpuscular Hemoglobin 27.2 27.0 - 33.0 pg [facility] Mean Corpuscular HGB Conc 31.9 31.0 - 35.0 g/dl [facility] Red Cell Distribution Width 13.2 11.0 - 16.0 % [facility] Platelet Count 363 160 - 400 X10*3/uL [facility] Mean Platelet Volume 10.5 9.4 - 12.3 fL [facility] Neutrophils Percent Auto 51.3 45 - 73 % [facility] Imm Gran Pct Auto 0.5(H) 0.0 - 0.4 % [facility] Lymphocytes Percent Auto 40.0 20 - 40 % [facility] Monocytes Percent Auto 6.3 2 - 11 % [facility] Eosinophils Percent Auto 1.6 0 - 4 % [facility] Basophils Percent Auto 0.3 0 - 2 % [facility] NRBC Pct Auto 0.0 0.0 - 0.2 /100WBC [facility] Neutrophils Absolute Auto 4.5 2.0 - 8.3 x10*3/uL [facility] Imm Gran Abs Auto 0.04(H) 0.00 - 0.03 X10*3/uL [facility] Lymphocytes Absolute Auto 3.5 1.2 - 4.9 X10*3/uL [facility] Monocytes Absolute Auto 0.6 0.1 - 1.2 X10*3/uL [facility] Eosinophils Absolute Auto 0.1 0.0 - 0.4 X10*3/uL [facility] Basophils Absolute Auto 0.0 0.0 - 0.2 X10*3/uL [facility] NRBC Abs Auto 0.000 0.0 - 0.012 X10*3/uL [facility] Blood Venous blood specimen / Unknown 01/28/2025 7:03 AM EDT 01/28/2025 7:03 AM EDT us Eris Name LAB BLOOD ORDERABLES Final Resul t [facility] [address] [place] [address] [phone] * (ABNORMAL) Lipid Panel, Standard (01/28/2025 7:03 AM EDT) Triglycerides 182(H) <150 mg/dL [facility] Comment:Desirable Triglyceri de: less than 150 mg/dLBorderline High Triglyceride 150-199 mg/dLHigh Triglyceride: 200-499 mg/dLVery High Triglyceride: greater than or equal to 5OO mg/dL Cholesterol 246(H) <200 mg/dL [facility] Comment:Desirable Cholestero l: less than 200 mg/dLBorderline High Cholesterol: 200-239 mg/dLHigh Cholesterol: greater than 239 mg/dL LDL Cholesterol Calculated 178(H) <100 mg/dL [facility] Comment:Desirable LDL: less than 100 mg/dLNear Optimal/Above Optimal LDL: 110- 129 mg/dLBorderline High LDL: 130-159 mg/dLHigh LDL: 160-189 mg/dLVery High LDL: greater than or equal to 190 mg/dL HDL Cholesterol 32(L) >40 mg/dL [facility] Comment:Desirable HDL: great er than 40 mg/dL Note: This HDL assay may give artificially low results in patients with liver disease. Blood Venous blood specimen / Unknown 01/28/2025 7:03 AM EDT 01/28/2025 7:03 AM EDT us Eris Chappell MD LAB BLOOD ORDERABLES Final Resul t [facility] [address] [place] [phone] * (ABNORMAL) Comprehensive Metabolic Panel (01/28/2025 7:03 AM EDT) Sodium 141 135 - 145 mmol/L [facility] Potassium 4.4 3.3 - 5.1 mmol/L [facility] Chloride 107 96 - 108 mmol/L [facility] Carbon Dioxide 24 22 - 29 mmol/L [facility] Anion Gap 14 12 - 20 [facility] Urea Nitrogen (BUN) 11 9 - 16 mg/dL [facility] Creatinine, Serum 1.03 0.5 - 1.4 mg/dL [facility] Estimated Glomerular Filt Rate 56 [facility] Comment:Chronic Kidney Disea se: Estimated GFR < 60 mL/min/1.94o2Iabrti Kidney Disease: Estimated GFR < 15 mL/min/1.73m2 Glucose 119(H) 60 - 115 mg/dL [facility] Calcium 9.1 8.4 - 10.2 mg/dL [facility] Bilirubin, Total 0.2 0.0 - 1.0 mg/dL [facility] Aspartate Amino Transferase 38(H) 5 - 31 U/L [facility] Alanine Aminotransferase 40(H) 0 - 31 U/L [facility] Total Protein 7.5 6.5 - 8.0 g/dL [facility] Albumin Level 4.6 3.5 - 5.0 g/dL [facility] Alkaline Phosphatase 102 39 - 117 U/L [facility] Blood Venous blood specimen / Unknown 01/28/2025 7:03 AM EDT 01/28/2025 7:03 AM EDT us Eris Chappell MD LAB BLOOD ORDERABLES Final Resul t [facility] [address] [place] [address] [phone] * BI Mammogram Screening Tomosynthesis Bilateral (11/22/2024 2:45 PM EDT) Anatomical Region Laterality Modality Breast Bilateral Mammography 11/22/2024 2:45 PM EDT Narrative 11/30/2024 2:45 PM EDT [facility] [address] [place] [address] Mammography Report Signed Patient: Polina Burris MR#: [id number] : 1975 Acct:[id number] Age/Sex: 49 / F ADM Date: 11/22/24 Loc: HO.MAMMO Attending Dr: Eris Chappell MD Ordering Physician: Eris Chappell MD Results: 2Benign Fi ndings Date of Service: 11/22/24 Follow Up: 1 Year From Orig ina Mammogram Procedure(s): MM tomosynthesis screening BI Accession Number(s): [id number] cc: Eris Chappell MD EXAMINATION: MM SCREENING DIGITAL BREAST TOMOSYNTHESIS, BILATERAL CLINICAL INFORMATION: Screening. Asymptomatic. COMPARISON: Mammography: Comparison is made with available priors TECHNIQUE: Digital breast mammography with tomosynthesis is performed in both the craniocaudal and mediolateral oblique views along with computer-aided detection (CAD). FINDINGS: There are scattered areas of fibroglandular density (ACR BI-RADS breast composition Category b). Bilateral scattered bilateral masses which wax and wane consistent with benign fibrocystic changes. There are no significant masses, abnormal calcifications, or other abnormalities. MM/MM tomosynthesis screening BI IMPRESSION: No mammographic evidence of malignancy. ASSESSMENT: BI-RADS BI-RADS 2 - Benign Findings RECOMMENDATION: Routine annual mammography screening. 1 year F/U This examination should not preclude the clinical evaluation of a suspicious palpable abnormality. This patient's information was entered into a reminder system with a target due date for their next mammogram. Electronically signed by: Charis Patel DO 11/30/2024 02:42 PM EDT RP Dictated By: Charis Patel DO Signed By: <Electronically signed by Charis Patel DO in OV> 11/30/24 1442 DD/ 1445 TD/TT: 11/22/24 1503 Apartment Leasing Consultant: Procedure Note Donotuseinterpreter, Image - [facility]/30/2024 [facility] [address] [place] [address] Mammography Report Signed Patient: Kadie Burris#: [id number] : 1975Acct:[id number] Age/Sex: 49 / FADM Date: 11/22/24 Loc: HO.MAMMO Attending Dr: Eris Chappell MD Ordering Physician: Eris Chappell MDResults: 2Benign Fi ndings Date of Service: 11/22/24Follow Up: 1 Year From Orig [facility] Mammogram Procedure(s): MM tomosynthesis screening BI Accession Number(s): [id number] cc: Eris Chappell MD EXAMINATION: MM SCREENING DIGITAL BREAST TOMOSYNTHESIS, BILATERAL CLINICAL INFORMATION: Screening. Asymptomatic. COMPARISON: Mammography: Comparison is made with available priors TECHNIQUE: Digital breast mammography with tomosynthesis is performed in both the craniocaudal and mediolateral oblique views along with computer-aided detection (CAD). FINDINGS: There are scattered areas of fibroglandular density (ACR BI-RADS breast composition Category b). Bilateral scattered bilateral masses which wax and wane consistent with benign fibrocystic changes. There are no significant masses, abnormal calcifications, or other abnormalities. MM/MM tomosynthesis screening BI IMPRESSION: No mammographic evidence of malignancy. ASSESSMENT: BI-RADS BI-RADS 2 - Benign Findings RECOMMENDATION: Routine annual mammography screening. 1 year F/U This examination should not preclude the clinical evaluation of a suspicious palpable abnormality. This patient's information was entered into a reminder system with a target due date for their next mammogram. Electronically signed by: Charis Patel DO 11/30/2024 02:42 PM EDT RP Dictated By: Charis Patel DO Signed By: <Electronically signed by Charis Patel DO in OV> 11/30/24 1442 DD/ 1445 TD/TT: 11/22/24 1503 Apartment Leasing Consultant: us Eris Name IMG BI PROCEDURES Edited Result - Final * (ABNORMAL) POCT HGB A1C (10/02/2024 4:10 PM EDT) Hemoglobin A1C 6.7(A) 4.0 - 6.0 % QC Media Lot # [id number] Lot# Expiration Date [id number] Blood 10/02/2024 4:10 PM EDT Eris Name POINT OF CARE TEST ENTER/EDIT OR DERABLES Final Result * Hm Colonoscopy (01/29/2019 3:12 PM EDT) Pathologist [facility] Colonoscopy Normal Normal Narrative Ling Mckeon - 01/29/2019 3:12 PM EDT Recommended 10 year follow up Historical Provider HEALTH MAINTENANCE Final Result * HPV mRNA E6/E7 (04/26/2017 10:15 AM EDT) HPV mRNA E6/E7 Not Detected NOT DETECTED [facility] Comment: This test was performed using the APTIMA(R) HPV Assay ([employer] This assay detects E6/E7 viral messenger RNA (mRNA) from 14 high-risk HPV types (16,18,31,33,35,39,45,51, 52,56,58,59,66,68). For additional information please refer to: http://education.Connesta.Beanup/faq/ZXI266q7 (This link is being provided for informational/ educational purposes only.) Test Performed by [employer], [employer] [facility], [address] [place] [address] John Ji M.D., Ph.D., Director of Laboratories , [place] [id number] Please note: Effective 03/07/2016, HPV testing will be performed using [employer]'s APTIMA test which targets mRNA. Detecting mRNA instead of DNA, as in older methods, offers significant improvements in specificity. 04/26/2017 10:1 5 AM EDT us Tamia Denita CNM HISTORICAL/NON ORDERABLE LABS Final Result [facility] [address] from Last 3 Months or Most Recently Relevant to Health Maintenance Insurance [address] [place] [phone] [place] [employer] [address] [place] [phone] Care Teams Field Operations Technician Relationship Specialty Start Date End Date Name, MD Eris [address] [place] [phone] PCP - General Family Medicine 07/14/15
[2025-02-23 12:35] LABS: Alanine Aminotransferase 47 U/L (0-31); Albumin Level 4.5 g/dL (3.5-5.0); Alkaline Phosphatase 92 U/L (39-117); Anion Gap 15 (12-20); Aspartate Amino Transferase 34 U/L (5-31); Blood Urea Nitrogen 15 mg/dL (9-16); Calcium 9.0 mg/dL (8.4-10.2); Carbon Dioxide 24 mmol/L (22-29); Chloride 105 mmol/L (96-108); Creatinine Clr Calc Pharmacy 69.2; Estimated Glomerular Filt Rate 53; Lipase 12 U/L (8-78); Magnesium 1.5 mg/dL (1.6-2.6); Potassium 3.9 mmol/L (3.3-5.1); Sodium 140 mmol/L (135-145); Total Protein 7.8 g/dL (6.5-8.0)
[2025-02-23 13:33] LABS: Appearance Urine Clear; Glucose Urine UA Negative (Negative); PH 7.5 (5.0-9.0); Specific Gravity - Urine 1.015 (1.005-1.025)
[2025-02-23 14:41] VITALS: BP 140/72; PULSE 84; RESP 18; TEMP 36.3; O2SAT 95
--- NOTE | 2025-02-23 15:07 | PC.NURSE ---
Pt resting quietly in room; in no caute distress at this time; MD at bedside to speak with pt
[2025-02-23 15:19] VITALS: BP 140/72; PULSE 84; RESP 18; TEMP 36.3; O2SAT 95
== END 2025-02-23 15:23 | disposition home or self-care (01) ==
PROVIDERS: Physician Assistant Medical; Emergency Provider Emergency Medicine; PCP Internal Medicine Geriatric Medicine
DX: M79.18 Myalgia, other site (principal); R10.9 Unspecified abdominal pain
CPT/HCPCS: 36415; 74176; 80053; 81003; 83690; 83735; 84702; 85025; 99284

== ENCOUNTER → 2025-02-23 13:11 | Outpatient (BNV) | payer OTHER, SELFPAY | PROVIDERS: Emergency Provider Emergency Medicine; PCP Internal Medicine Geriatric Medicine; Visit Provider Radiology Diagnostic Radiology | DX: R16.0 Hepatomegaly, not elsewhere classified (principal) | CPT/HCPCS: 74176 ==

== ENCOUNTER 2025-04-22 06:32 | Outpatient (REF) | payer OTHER, SELFPAY ==
--- OUTSIDE RECORDS SUMMARY | 2025-04-22 06:36 | XMS_ITS | Encounter Summary ---
Author Organization [employer] Address [address] [facility] 7 [place] [address] Care Team Providers Care Cashier Payments Received Name Role Phone Name, Eris FELDMAN Primary Care Provider [phone] Reason for Visit * Reason Comments Med Refill Encounter Details Date Type Department Care Team ([facility] st Contact Info) Description 04/10/2025 Refill [facility] [address] [place], [place] [phone] Name, MD Eris [address] [place] [address] Social History Tobacco Use Types Packs/Day Years [...] Description 04/22/2025 4:00 PM EDT Office Visit [facility] [address] [place] [address] NameEris MD [address] [place] [address] documented as of this encounter Visit Diagnoses Not on filedocumented in this encounter Additional Health Concerns Assessment Noted Time PHQ-9 Depression Total Score: 15 025 3:57 PM EDT documented as of this encounter Care Teams Cashier Payments Received Relationship Specialty Start Date End Date Name, MD Eris [address] [place] [phone] PCP - General Family Medicine 07/14/15 documented as of this encounter
--- OUTSIDE RECORDS SUMMARY | 2025-04-22 06:36 | XMS_ITS | Encounter Summary ---
Author Organization [employer] Address [address] [facility] 7 [place] [address] Care Team Providers Care Sleeping Car Porter Name Role Phone Name, Eris FELDMAN Primary Care Provider [phone] Reason for Visit * Reason Comments Med Refill Encounter Details Date Type Department Care Team ([facility] st Contact Info) Description 02/10/2025 Refill [facility] [address] [place], [place] [phone] Name, MD Eris [address] [place] [address] Type 2 diabetes mellitus without complication, without long-term current use of insulin ([facility]) Social History Tobacco Use Types [...] Description 04/22/2025 4:00 PM EDT Office Visit [facility] [address] [place] [address] Name, MD Eris [address] [place] [address] documented as of this encounter Visit Diagnoses Diagnosis Type 2 diabetes mellitus without complication, without long-term current use of insulin (HCC) documented in this encounter Additional Health Concerns Assessment Noted Time PHQ-9 Depression Total Score: 15 025 3:57 PM EDT documented as of this encounter Care Teams Sleeping Car Porter Relationship Specialty Start Date End Date NameEris MD [address] [place] [address] PCP - General Family Medicine 07/14/15 documented as of this encounter
--- OUTSIDE RECORDS SUMMARY | 2025-04-22 06:36 | XMS_ITS | Encounter Summary ---
Author Organization [employer] Address [address] [facility] 7 [place] [address] Care Team Providers Care Advertising Photographer Name Role Phone Name, Eris FELDMAN Primary Care Provider [phone] Reason for Visit * Reason Onset Date Comments Chart Prep 04/21/2025 Encounter Details Date Type Department Care Team ([facility] Contact Info) Description 04/21/2025 Telephone [facility] MED[facility]INE [address] [place], [place] [phone] Name, MD Eris [address] [place] [address] Chart Prep Social History Tobacco Use Types Packs/Day Years [...] encounter Miscellaneous Notes * Telephone Encounter - Georgette Patel [place] - 04/21/2025 1:59 PM EDT Chart Prep Labs: done Images: done Referrals: Canceled phat 01/09/2025 Vaccines due: Flu, PCV20, and Zoster Screenings: pap smear, eye exam, and foot exam Overdue care gaps: A1c, Glucose, Oral health screening, Disability screen, and Tobacco documented in this encounter Plan of Treatment Upcoming Encounters Date Type Department Care Team (Late st Contact Info) Description 04/22/2025 4:00 PM EDT Office Visit [facility] MED[facility]INE [address] [place] [phone] NameEris MD [address] [place] [address] documented as of this encounter Visit Diagnoses Not on filedocumented in this encounter Additional Health Concerns Assessment Noted Time PHQ-9 Depression Total Score: 15 025 3:57 PM EDT documented as of this encounter Care Teams Advertising Photographer Relationship Specialty Start Date End Date NameEris MD [address] [place] [phone] PCP - General Family Medicine 07/14/15 documented as of this encounter
--- OUTSIDE RECORDS SUMMARY | 2025-04-22 06:36 | XMS_ITS | Encounter Summary ---
Author Organization [employer] Address [address] [facility] 7 [place] [address] Care Team Providers Care Access Director Name Role Phone Name, Eris FELDMAN Primary Care Provider [phone] Reason for Visit * Reason Comments Med Refill Encounter Details Date Type Department Care Team ([facility] st Contact Info) Description 01/20/2025 Refill [facility] MEDICINE [address] [place], [place] [phone] Name, MD Eris [address] [place] [address] Social History Tobacco Use Types Packs/Day Years [...] Description 04/22/2025 4:00 PM EDT Office Visit [facility] MEDICINE [address] [place] [phone] Name, MD Eris [address] [place] [address] documented as of this encounter Visit Diagnoses Not on filedocumented in this encounter Additional Health Concerns Assessment Noted Time PHQ-9 Depression Total Score: 11 024 4:10 PM EST documented as of this encounter Care Teams Access Director Relationship Specialty Start Date End Date Name, MD Eris [address] [place] [phone] PCP - General Family Medicine 07/14/15 documented as of this encounter
--- OUTSIDE RECORDS SUMMARY | 2025-04-22 06:36 | XMS_ITS | Encounter Summary ---
Author Organization [employer] Address [address] [place] [address] 7 [place] [address] Care Team Providers Care Freight Car Repairer Name Role Phone Name, Eris FELDMAN Primary Care Provider [phone] Encounter Details Date Type Department Care Team ([facility] Contact Info) Description 11/25/2022 Abstract [facility] MEDICINE [address] [place] [address] [phone] Eris Chappell MD [address] [place] [address] [phone] Social History Tobacco Use Types Packs/Day Years [...] Upcoming Encounters Date Type Department Care Team ([facility] Contact Info) Description 04/22/2025 4:00 PM EDT Office Visit [facility] MEDICINE [address] [place] [address] [phone] Eris Chappell MD [address] [place] [address] [phone] documented as of this encounter Procedures Procedure [...] on filedocumented in this encounter Care Teams Freight Car Repairer Relationship Specialty Start Date End Date Name, MD Eris [address] [place] [address] PCP - General Family Medicine 07/14/15 documented as of this encounter
--- OUTSIDE RECORDS SUMMARY | 2025-04-22 06:36 | XMS_ITS | Encounter Summary ---
Author Organization [employer] Address [address] [facility] [address]t [place] [address] Care Team Providers Care Brand Manager Name Role Phone Name, Eris FELDMAN Primary Care Provider [phone] Encounter Details Date Type Department Care Team (Latest Contact Info) Description 04/21/2025 Travel Social History Tobacco Use Types Packs/Day [...] Description 04/22/2025 4:00 PM EDT Office Visit [facility] MEDICINE [address] [place] [phone] Name, MD Eris [address] [place] [phone] documented as of this encounter Visit Diagnoses Not on filedocumented in this encounter Additional Health Concerns Assessment Noted Time PHQ-9 Depression Total Score: 15 025 3:57 PM EDT documented as of this encounter Care Teams Brand Manager Relationship Specialty Start Date End Date Name, MD Eris [address] [place] [phone] PCP - General Family Medicine 07/14/15 documented as of this encounter
--- OUTSIDE RECORDS SUMMARY | 2025-04-22 06:36 | XMS_ITS | Clinical Summary ---
Author Organization [employer] Address [address] [place] [address] 7 [place] [address] Care Team Providers Care Wireless Operator Name Role Phone Name, Eris FELDMAN Primary Care Provider [phone] Allergies Active Allergy Reactions Criticality Noted Date Comments Acetaminophen Itching Low 11/11/2015 Apricot Flavoring Agent (Non-Screening) Hives Medium 02/02/2023 Aripiprazole Dizziness Low 10/27/2023 Bupropion Hives Medium 11/21/2013 Codeine Nausea,Vomiting Low 08/22/2023 Hydrocodone Vomiting Low 02/02/2023 Ibuprofen Headache Low 11/21/2013 Oxycodone Itching,Nausea,Vomiting Medium 02/02/2023 Sulfamethoxazole-Trimethoprim Vomiting Low 2013 Tramadol Vomiting Low 02/02/2023 Wound Dressing Adhesive Itching,Rash Low 01/12/2023 Medications amphetamine-d extroamphetam ine (Adderall) 10 MG tablet Take 1 tablet [...] Monitoring Suppl (Contour Next Gen Monitor) w/Device kitIndication s:Type 2 diabetes mellitus without complication, without long-term current use of insulin (HCC),Morbid obesity (CMS/HCC) (HCC),Chronic pain of right ankle USE DIRECTED TO TEST BLOOD SUGAR ONCE DAILY 1 kit 08/23/19 24 Active glucose blood (Contour Next Test) test strip USE DIRECTED TO TEST BLOOD SUGAR ONCE DAILY 100 each 11 08/23/19 24 Active Microlet Lancets miscIndicatio ns:Type 2 diabetes mellitus without complication, without long-term current use of insulin ([facility]),Morbid obesity (CMS/HCC) ([facility]),Chronic pain of right ankle USE DIRECTED TO TEST BLOOD SUGAR EVERY MORNING 100 each 11 08/23/19 24 Active pen needle 32G x 4 mm miscIndicatio ns:Type 2 diabetes mellitus without complication, without long-term current use of insulin ([facility]) Inject under the skin Once daily. Use as instructed to inject victoza once daily 100 each 3 08/23/19 24 Active ALPRAZolam (Xanax) 0.5 MG tablet 02/20/20 24 Active traZODone (Desyrel) 50 MG tablet 02/20/20 24 Active omeprazole (PriLOSEC) [address] capsule [...] week. 1.5 mL 3 01/30/20 25 Active cholecalcifer ol (Vitamin D3) 25 MCG (1000 UT) tablet TAKE 1 TABLET (25 MCG) BY MOUTH ONCE PER DAY. 30 tablet 11 04/02/20 25 Active cholecalcifer ol (Vitamin D-3) 25 MCG (1000 UT) tablet Take 1 tablet (25 mcg) by mouth Once per day. 30 tablet 11 03/20/20 24 2024 Discontinued Active Problems Problem Noted Date Diagnosed Date [...] (08/22/2023): RECORDED 03/03/2008 12:17PM BY SD KEMP, NATI/ADDENDUM Lumbar sprain 03/03/2008 Overview (08/22/2023): IMPRESSION: WITH [...] Overview (08/22/2023): RECORDED 03/03/2008 12:17PM BY SD VIRIDIANA, ANNOTATION/ADDENDUM Influenza with non-respiratory manifestation 8 08/22/2023 Overview (08/22/2023): RECORDED 03/03/2008 12:17PM BY SD KEMP, ANNOTATION/ADDENDUM Encounters Date Type Department Care Team Description 04/21/2025 Telephone [facility] [address] Eris Chappell MD Chart Prep 04/21/2025 Travel 04/10/2025 Refill [facility] [place] [address] Eris Chappell MD 04/01/2025 Refill [facility] [place] [address] Eris Chappell MD 03/04/2025 Telephone [facility] [place] [address] Lissa Talavera, PharmD 02/23/2025 Orders Only GENERIC EXTERNAL DATA DEPARTMENT Provider, Generic External Data 02/11/2025 Telephone [facility] [place] [address] Eris Chappell MD Prior Authorization 02/10/2025 Refill [facility] [place] [address] Eris Chappell MD Type 2 diabetes mellitus without complication, without long-term current use of insulin (CMS/HCC) 01/29/2025 3:45 PM EDT Office Visit [facility] [place] [address] Eris Chappell MD Type 2 diabetes mellitus without complication, without long-term current use of insulin (CMS/HCC) (Primary Dx); Refusal of statin medication by patient; Acquired hypothyroidism; Chronic bilateral low back pain with right-sided sciatica 01/29/2025 Travel 01/20/2025 Refill [facility] [place] [address] Eris Chappell MD from Last 3 Months Immunizations Immunization Administration Dates Next Due Influenza injectable quadriv alent preservative free 03/15/2016,08/03/2015 Influenza, IIV3, injectable 03/26/2013,1 ,03/26/2011,07/03,04/03/2008 Novel [id number], all formulations 07/03/2009 Pneumococcal Polysaccharide PPSV23 08/03/2015 [...] Description 04/22/2025 4:00 PM EDT Office Visit [facility] [address], [place] [phone] Name, MD Eris [address] [place] [address] Health Maintenance Due Date Last Done Comments [...] (1 of 2) 01/04/2024 COVID-19 Vaccine (3 - season) 2025 06/21/2021, 05/28/2021 Influenza Vaccine (#1) 02/24/2025201 6, 08/03/2015, 03/26/2013, Additional history exists Diabetes: [...] Procedure Name Priority Date/Time Associated Diagnosis Comments CT ABDOMEN PELVIS WO CONTRAST Routine 02/23/2025 2:32 PM EDT URINALYSIS WITH REFLEX MICROSCOPIC Routine 02/23/2025 1:24 PM EDT HCG, TOTAL, QN Routine 02/23/2025 12:14 PM EDT LIPASE Routine 02/23/2025 12:14 PM EDT MAGNESIUM Routine 02/23/2025 12:14 PM EDT COMPREHENSIVE METABOLIC PANEL Routine 02/23/2025 12:14 PM EDT CBC WITH AUTO DIFFERENTIAL Routine 02/23/2025 12:14 PM EDT POCT GLUCOSE Routine 01/29/2025 4:02 PM EDT [...] Recently Relevant to Health Maintenance Results * CT Abdomen Pelvis w/o Contrast (02/23/2025 2:32 PM EDT) Anatomical Region Laterality Modality Body, Pelvis, Abdomen Computed T omography 02/23/2025 2:32 PM EDT Narrative 02/23/2025 2:34 PM EDT [place] [address] [address] Scan Report Signed Patient: Polina Burris MR#: [id number] 636 : 1975 Acct:[id number] Age/Sex: 50 / F ADM Date: 02/23/25 Loc: HO.ED Attending Dr: Ordering Physician: Hailey Biswas MD Date of Service: 02/23/25 Procedure(s): CT abdomen pelvis wo IV con Accession Number(s): [id number] cc: Hailey Biswas MD; Name,Eris FELDMAN Report Number: [id number]: Total DLP = 761.00 mGy-cm CLINICAL HISTORY: Left flank left abdominal pain CT ABDOMEN AND PELVIS WITHOUT CONTRAST Comparison: CT - CT ABDOMEN PELVIS W IV CON - 10/29/24 23:19 EDT Findings: The lung bases are clear. No hydronephrosis or urolithiasis. No acute abnormalities in the remaining solid organs. Enlarged liver with diffuse fatty infiltration. Right hepatic lobe measures 20.3 cm. Solitary calcified granuloma in the spleen. No large calcified gallstone. No AAA. No bowel obstruction, pneumoperitoneum, or pneumatosis. No ascites or organized fluid collection. No significant mesenteric or paracolic edema. The appendix is identified. No acute appendicitis. Hysterectomy. Nearly empty urinary bladder. Multiple pelvic phleboliths. No acute fracture. IMPRESSION: 1. No acute obstructive uropathy or urolithiasis. 2. No obstructive or acute inflammatory changes in the gastrointestinal tract. 3. Hepatomegaly and hepatic steatosis. This document has been electronically signed by: Lilibeth Galo DO on 02/23/2025 14:32:54 Dictated By: Lilibeth Galo MD Signed By: <Electronically signed by Lilibeth Galo MD in OV> 02/23/25 1433 DD/ 1432 TD/TT: 02/23/25 1432 Angle Shear Set Up Operator: Procedure Note Donotuseinterpreter, Image - 02/23/[address] [place] [address] [address] Scan Report Signed Patient: Kadie Burris#: [id number] 636 : 1975Acct:[id number] Age/Sex: 50 / FADM Date: 02/23/25 Loc: HO.ED Attending Dr: Ordering Physician: Hailey Biswas MD Date of Service: 02/23/25 Procedure(s): CT abdomen pelvis wo IV con Accession Number(s): [id number] cc: Hailey Biswas MD; Name,Eris FELDMAN Report Number: [id number]: Total DLP = 761.00 mGy-cm CLINICAL HISTORY: Left flank left abdominal pain CT ABDOMEN AND PELVIS WITHOUT CONTRAST Comparison: CT - CT ABDOMEN PELVIS W IV CON - 10/29/24 23:19 EDT Findings: The lung bases are clear. No hydronephrosis or urolithiasis. No acute abnormalities in the remaining solid organs. Enlarged liver with diffuse fatty infiltration. Right hepatic lobe measures 20.3 cm. Solitary calcified granuloma in the spleen. No large calcified gallstone. No AAA. No bowel obstruction, pneumoperitoneum, or pneumatosis. No ascites or organized fluid collection. No significant mesenteric or paracolic edema. The appendix is identified. No acute appendicitis. Hysterectomy. Nearly empty urinary bladder. Multiple pelvic phleboliths. No acute fracture. IMPRESSION: 1. No acute obstructive uropathy or urolithiasis. 2. No obstructive or acute inflammatory changes in the gastrointestinal tract. 3. Hepatomegaly and hepatic steatosis. This document has been electronically signed by: Lilibeth Galo DO on 02/23/2025 14:32:54 Dictated By: Lilibeth Galo MD Signed By: <Electronically signed by Lilibeth Galo MD in OV> 02/23/25 1433 DD/ 1432 TD/TT: 02/23/25 143 Angle Shear Set Up Operator: us External Provider IMG CT PROCEDURES Final Result * Urinalysis w/reflex microscopic (02/23/2025 1:24 PM EDT) Color Urine Yellow [facility] Appearance Urine Clear [facility] PH 7.5 5.0 - 9.0 [facility] Glucose Urine UA Negative Negative mg/dL [facility] Urine Blood Negative Negative [facility] Specific [place] - Urine 1.015 1.005 - 1.025 [facility] Urine Protein Trace Neg-Trace mg/dL [facility] Urine Ketones Negative Negative mg/dL [facility] Nitrite Urine Negative Negative [facility] Leukocyte Esterase Urine Negative Negative [facility] 02/23/2025 1:24 PM EDT 02/23/2025 1:29 PM EDT Narrative [facility] - 02/23/2025 1:34 PM EDT Urine, Clean Catch Generic External Data Provider LAB URINE ORDERAB LES Final Result [facility] [address] [place] [phone] * (ABNORMAL) CBC auto differential (02/23/2025 12:14 PM EDT) Only the most recent of2 resultswithin the time period is included. White Blood Count 8.3 4.8 - 10.8 X10*3/uL [facility] Red Blood Count 4.31 4.20 - 5.50 X10*6/uL [facility] Hemoglobin 12.0 12.0 - 16.0 g/dl [facility] Hematocrit 36.5(L) 37.0 - 47.0 % [facility] Mean Corpuscular Volume 84.7 80.0 - 98.0 fL [facility] Mean Corpuscular Hemoglobin 27.8 27.0 - 33.0 pg [facility] Mean Corpuscular HGB Conc 32.9 31.0 - 35.0 g/dl [facility] Red Cell Distribution Width 13.4 11.0 - 16.0 % [facility] Platelet Count 314 160 - 400 X10*3/uL [facility] Mean Platelet Volume 10.2 9.4 - 12.3 fL [facility] Neutrophils Percent Auto 50.6 45 - 73 % [facility] Imm Gran Pct Auto 0.7(H) 0.0 - 0.4 % [facility] Lymphocytes Percent Auto 40.0 20 - 40 % [facility] Monocytes Percent Auto 6.5 2 - 11 % [facility] Eosinophils Percent Auto 1.8 0 - 4 % [facility] Basophils Percent Auto 0.4 0 - 2 % [facility] NRBC Pct Auto 0.0 0.0 - 0.2 /100WBC [facility] Neutrophils Absolute Auto 4.2 2.0 - 8.3 x10*3/uL [facility] Imm Gran Abs Auto 0.06(H) 0.00 - 0.03 X10*3/uL [facility] Lymphocytes Absolute Auto 3.3 1.2 - 4.9 X10*3/uL [facility] Monocytes Absolute Auto 0.5 0.1 - 1.2 X10*3/uL [facility] Eosinophils Absolute Auto 0.2 0.0 - 0.4 X10*3/uL [facility] Basophils Absolute Auto 0.0 0.0 - 0.2 X10*3/uL [facility] NRBC Abs Auto 0.000 0.0 - 0.012 X10*3/uL [facility] 02/23/2025 12:1 4 PM EDT 02/23/2025 12:16 PM EDT us Generic External Data Provider LAB BLOOD ORDERAB LES Final Result Performing Organization Address [facility] Co de Phone Number [facility] [address] [place] [phone] * hCG, Total, Quantitative (02/23/2025 12:14 PM EDT) HCG Quantitative 3 mIU/mL [facility] Comment:Weeks post LMP Appro ximate hCG(Last Menstrual Period) Range (mIU/ml)3 - 4 weeks 9 - 1304 - 5 weeks 75 - 2,6005 - 6 weeks 850 - 20,8006 - 7 weeks 4000 - 100,2007 - 12 weeks 11,500 - 289,89762 - 16 weeks 18,300 - 137,69478 - 29 weeks (2nd trimester) 1,400 - 53,37425 - 41 weeks (3rd trimester) 940 - 60,000The Gonzalez B- hCG assay is used for the early detection ofpregnancy; it cannot be used to diagnose any conditionunrelated to . If a B-hCG level is not supportedby the clinical evidence, results should be confirmed by analternative method (qualitative urine hCG, for example). 02/23/2025 12:1 4 PM EDT 02/23/2025 12:16 PM EDT us Generic External Data Provider LAB BLOOD ORDERAB LES Final Result Performing Organization Address [facility] Co de Phone Number [facility] [address] [place] [address] [phone] * (ABNORMAL) Magnesium (02/23/2025 12:14 PM EDT) Magnesium 1.5(L) 1.6 - 2.6 mg/dL [facility] 02/23/2025 12:1 4 PM EDT 02/23/2025 12:16 PM EDT Generic External Data Provider LAB BLOOD ORDERAB LES Final Result Performing Organization Address [facility] Co de Phone Number [facility] [address] [place] [phone] [phone] * Lipase (02/23/2025 12:14 PM EDT) Lipase 12 8 - 78 U/L [facility] 02/23/2025 12:1 4 PM EDT 02/23/2025 12:16 PM EDT us Generic External Data Provider LAB BLOOD ORDERAB LES Final Result Performing Organization Address [facility] Co de Phone Number [facility] [address] [place] [address] [phone] * (ABNORMAL) Comprehensive Metabolic Panel (02/23/2025 12:14 PM EDT) Only the most recent of2 resultswithin the time period is included. Pathologist [facility] Sodium 140 135 - 145 mmol/L [facility] Potassium 3.9 3.3 - 5.1 mmol/L [facility] Chloride 105 96 - 108 mmol/L [facility] Carbon Dioxide 24 22 - 29 mmol/L [facility] Anion Gap 15 12 - 20 [facility] Urea Nitrogen (BUN) 15 9 - 16 mg/dL [facility] Creatinine, Serum 1.09 0.5 - 1.4 mg/dL [facility] Creatinine Clr Calc Pharmacy 69.2 [facility] Comment:Provided height and weight: 157.48 cm,104.326 kg.eGFR (calculated from the MDRD study equation) and eCrCl(calculated from the Cockcroft-Gault equation) are based ondifferent parameters and may not yield comparable results.If eCrCl result is absurd, please check patient'sheight/weight. Estimated Glomerular Filt Rate 53 [facility] Comment:Chronic Kidney Disea se: Estimated GFR < 60 mL/min/1.97a0Wvpiev Kidney Disease: Estimated GFR < 15 mL/min/1.73m2 Glucose 105 60 - 115 mg/dL [facility] Calcium 9.0 8.4 - 10.2 mg/dL [facility] Bilirubin, Total 0.2 0.0 - 1.0 mg/dL [facility] Aspartate Amino Transferase 34(H) 5 - 31 U/L [facility] Alanine Aminotransferase 47(H) 0 - 31 U/L [facility] Total Protein 7.8 6.5 - 8.0 g/dL [facility] Albumin Level 4.5 3.5 - 5.0 g/dL [facility] Alkaline Phosphatase 92 39 - 117 U/L [facility] 02/23/2025 12:1 4 PM EDT 02/23/2025 12:16 PM EDT us Generic External Data Provider LAB BLOOD ORDERAB LES Final Result [facility] [address] [place] [phone] * POCT Glucose (01/29/2025 4:02 PM EDT) Glucose Blood, POC 135 60 - 200 mg/dL QC Media Lot # [id number] Lot# Expiration Date Blood Capillary blood specimen / Unknown 01/29/2025 4:02 PM EDT Eris Name POINT OF CARE TEST ENTER/EDIT OR DERABLES Final Result * (ABNORMAL) Albumin, Random Urine W/Creatinine (01/28/2025 10:43 AM EDT) Creatinine, Urine 367.85 mg/dL [facility] Microalbumin Urine 185.0 mg/L [facility] Microalbum Creatinine Ratio Ur 50.2(H) <30 ug/mg cr [facility] Comment:Albumin/Creatinine R atio Reference Ranges: Normal: < 30 ug/mg creatinine Microalbuminuria: 30 - 300 ug/mg creatinineClinical Albuminuria: > 300 ug/mg creatinine Urine (Urine, Random) 01/28/2025 10:43 AM EDT 01/28/2025 11:34 AM EDT us Eris Chappell MD LAB URINE ORDERABLES Final Resul t Performing Organization Address City/[facility]/ZIP Co de Phone Number [facility] [address] [place] [phone] * (ABNORMAL) Vitamin D, 25-Hydroxy, Total, Immunoassay (01/28/2025 7:03 AM EDT) Vitamin D 25-OH Total 27.3(L) >30 ng/mL [facility] Comment: Health Based Reference Values*< 20 ng/mL Bidvrrmov73-57 ng/mL Insufficient> 30 ng/mL Sufficient*Henrry SMALL. N [...] MD LAB BLOOD ORDERABLES Final Resul t Performing Organization Address [facility]/ZIP Co de Phone Number [facility] [address] [place] [phone] * (ABNORMAL) Lipid Panel, Standard (01/28/2025 7:03 AM EDT) Triglycerides 182(H) <150 mg/dL [facility] Comment:Desirable Triglyceri de: less than 150 mg/dLBorderline High Triglyceride 150-199 mg/dLHigh Triglyceride: 200-499 mg/dLVery High Triglyceride: greater than or equal to 5OO mg/dL Cholesterol 246(H) <200 mg/dL [facility] Comment:Desirable Cholestero l: less than 200 mg/dLBorderline High Cholesterol: 200-239 mg/dLHigh Cholesterol: greater than 239 mg/dL LDL Cholesterol Calculated 178(H) <100 mg/dL [facility] Comment:Desirable LDL: less than 100 mg/dLNear Optimal/Above Optimal LDL: 110- 129 mg/dLBorderline High LDL: 130-159 mg/dLHigh LDL: 160-189 mg/dLVery High LDL: greater than or equal to 190 mg/dL HDL Cholesterol 32(L) >40 mg/dL [facility] Comment:Desirable HDL: great er than 40 mg/dL Note: This HDL assay may give artificially low results in patients with liver disease. Blood Venous blood specimen / Unknown 01/28/2025 7:03 AM EDT 01/28/2025 7:03 AM EDT us Eris Name LAB BLOOD ORDERABLES Final Resul t [facility] [address], [place] [phone] * BI Mammogram Screening Tomosynthesis Bilateral (11/22/2024 2:45 PM EDT) Anatomical Region Laterality Modality Breast Bilateral Mammography 11/22/2024 2:45 PM EDT Narrative 11/30/2024 2:45 PM EDT [facility] [address] [place] [address] Mammography Report Signed Patient: Polina Burris MR#: [id number] 636 : 1975 Acct:[id number] Age/Sex: 49 / F ADM Date: 11/22/24 Loc: HO.MAMMO Attending Dr: Eris Chappell MD Ordering Physician: Eris Chappell MD Results: 2Benign Fi ndings Date of Service: 11/22/24 Follow Up: 1 Year From Orig ina Mammogram Procedure(s): MM tomosynthesis screening BI Accession Number(s): [id number] cc: Eris Chappell MD EXAMINATION: MM SCREENING [...] Charis Patel DO 11/30/2024 02:42 PM EDT Dictated By: Charis Patel DO Signed By: <Electronically signed by Charis Patel DO in OV> 11/30/24 1442 DD/ 1445 TD/TT: 11/22/24 1503 Angle Shear Set Up Operator: Procedure Note Donotuseinterpreter, Image - 11/30/2024 [facility] [address] [place] [address] Mammography Report Signed Patient: Kadie Burris#: [id number] 636 : 1975Acct:[id number] Age/Sex: 49 / FADM Date: 11/22/24 Loc: MAMMO Attending Dr: Eris Chappell MD Ordering Physician: Eris Chappell MDResults: 2Benign Fi ndings Date of Service: 11/22/24Follow Up: 1 Year From Orig inal Mammogram Procedure(s): MM tomosynthesis screening BI Accession Number(s): [id number] cc: Eris Chappell MD EXAMINATION: MM SCREENING [...] Charis Patel DO 11/30/2024 02:42 PM EDT Dictated By: Charis Patel DO Signed By: <Electronically signed by Charis Patel DO in OV> 11/30/24 1442 DD/ 1445 TD/TT: 11/22/24 1503 Angle Shear Set Up Operator: us Eris Chappell MD IMG BI PROCEDURES Edited Result - Final [...] HPV mRNA E6/E7 Not Detected NOT DETECTED [facility] Comment: This test was performed using the APTIMA(R) HPV Assay ([employer] This assay detects E6/E7 viral messenger RNA (mRNA) from 14 high-risk HPV types (16,18,31,33,35,39,45,51, 52,56,58,59,66,68). For additional information please refer to: http://education.Triductor/faq/XHI806a7 (This link is being provided for informational/ educational purposes only.) Test Performed by [employer] [facility], [address] [place] [phone] John Ji M.D., Ph.D., Director of Laboratories , [facility] [id number] Please note: Effective 03/07/2016, HPV testing will be performed using [employer]'s APTIMA test which targets mRNA. Detecting mRNA instead of DNA, as in older methods, offers significant improvements in specificity. 04/26/2017 10:1 5 AM EDT Tamia Barger CNM HISTORICAL/NON ORDERABLE LABS Final Result [facility] [address] from Last 3 Months or Most Recently Relevant to Health Maintenance Insurance [employer] Care Teams Wireless Operator Relationship Specialty Start Date End Date Name, MD Eris [address] [place] [phone] PCP - General Family Medicine 07/14/15
[2025-04-22 09:07] LABS: Free T4 (Free Thyroxine) 0.90 ng/dL (0.71-1.85)
== END 2025-04-22 06:33 | disposition home or self-care (01) ==
LOC: HO.LAB 06:32
PROVIDERS: PCP Internal Medicine Geriatric Medicine; Visit Provider Internal Medicine Geriatric Medicine
DX: E11.9 Type 2 diabetes mellitus without complications (principal); E03.9 Hypothyroidism, unspecified
CPT/HCPCS: 36415; 83036; 84439; 84443

== ENCOUNTER 2025-06-09 10:37 | Outpatient (AMB) | payer OTHER, SELFPAY ==
[2025-06-09 11:12] VITALS: BP 129/65; PULSE 119; RESP 16; O2SAT 97; BMI 43.2
--- NOTE | 2025-06-09 11:12 | MHC.OFFVIS ---
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 Allergies bupropion (From WELLBUTRIN) Allergy (Severe, Verified 06/09/25 11:13) HIVES hydrocodone (From VICODIN) Allergy (Severe, Verified 06/09/25 11:13) VOMITING oxycodone (From OXYCONTIN) Allergy (Severe, Verified 06/09/25 11:13) VOMITING, itching tramadol (TRAMADOL) Allergy (Severe, Verified 06/09/25 11:13) VOMITING egg Allergy (Intermediate, Verified 06/09/25 11:13) Stomach Upset adhesive tape Allergy (Mild, Verified 06/09/25 11:13) Rash APRICOT Allergy (Severe, Uncoded 06/09/25 11:13) HIVES NARCOTICS Allergy (Severe, Uncoded 06/09/25 11:13) VOMITING Medication List - Last Reconciled 06/09/25 by Nerissa Garcia, GIA clindamycin phosphate 1% 1 appl topical BID cyclobenzaprine 10 mg PO TID PRN dextroamphetamine-amphetamine 10 mg 1 tab PO DAILY dextroamphetamine-amphetamine 30 mg ER 1 cap PO QAM duloxetine 120 mg PO DAILY levothyroxine 150 mcg PO DAILY naproxen 500 mg PO BID ondansetron 4 mg PO Q8H PRN pantoprazole 40 mg PO DAILY semaglutide (Ozempic) mg subcut trazodone 50 - 150 mg PO BEDTIME PRN vitamin B complex-folic acid 0.4 mg 1 tab PO DAILY HPI Comments Details: History of Present Illness The patient is a 50 year old female presenting for a follow-up visit regarding chronic low back pain. Her pain has always been on the right side and now radiates down to the knee. The patient reports her symptoms are exacerbated by standing for longer than 5 minutes, which causes a significant pressure sensation in her back. The pain has become more frequent and significantly impacts her activities of daily living, including dressing, working, and shopping. She has been using a walker for assistance. Her last injection was nearly 3 years ago on the left side, though she has also had a prior injection on the right side. She continues to perform home exercises. Pain Description - Location: The pain is primarily in the back, localized to the right side. - Radiation: The pain radiates down the leg to the knee. - Quality: Described as a feeling of so much pressure that it feels like it is going to blow, pop. - Exacerbating factors: Pain is worsened by standing for more than 5 minutes and by movement such as turning in bed. - Functional limitations: The pain interferes with dressing, working, and shopping, and she is unable to stand for long. Pain Management - Affect: The patient feels her life is restricted to just working and going home, describing it as no type of living. - Activities of Daily Living: The pain significantly impacts her function, as she can't stand for more than 5 minutes, needs a walker, and has difficulty with dressing and shopping. [facility] Medical History Personal history of nicotine dependence History of postoperative nausea and vomiting B12 deficiency Lumbar radiculopathy Anemia Labial abscess Hx of pilonidal cyst Surgical History History of colonoscopy History of esophagogastroduodenoscopy (EGD) History of abdominoplasty History of hysterectomy History of shoulder surgery History of elbow surgery History of hand surgery Family History Brother HTN (hypertension) Brother HTN (hypertension) Father HTN (hypertension) Social History Patient Tobacco Use Status: Former Tobacco user Tobacco use type: Cigarette Years Smoked: (onset 14yo, 2-3ppd x 33yrs, 75pyh - quit 2022 - now vaping) e-Cigarette/Vaping Use: Currently Using 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 - Lumbar Spine: Pain is reproduced with extension. - Flexion of the lumbar spine does not cause pain Vital Signs: Last Vital Signs Pulse 119 H 06/09/25 11:12 Resp 16 06/09/25 11:12 BP 129/65 06/09/25 11:12 Pulse Ox 97 06/09/25 11:12 Oxygen Delivery Method Room Air 06/09/25 11:12 BMI result Body Mass Index 43.2 Assessment & Plan Assessment & Plan (1) Sacroiliac dysfunction: Code(s): M53.3 - Sacrococcygeal disorders, not elsewhere classified Category: Medical Plan Plan Patient was informed and verbally consented to the use of an ambient scribe for clinic note documentation during this visit. 1. Sacroiliac Joint Dysfunction - A right sacroiliac joint injection will be performed. - The procedure will start with a diagnostic injection containing only local anesthetic to confirm the sacroiliac joint as the source of pain. - If the diagnostic test shot is successful in relieving her pain, a therapeutic injection with cortisone will be administered. - The patient will be added to a cancellation list for the procedure, as she is able to come in on short notice. Discussion Notes I reviewed the patient's history and physical exam findings with her, explaining that her symptoms and the positive provocative maneuvers during the exam are consistent with right-sided sacroiliac (SI) joint pain. I recommended we proceed with another SI joint injection. I outlined a two-step approach, starting with a diagnostic 'test shot' of local anesthetic to confirm the diagnosis. I explained that if this test is successful, we would then perform a therapeutic injection with cortisone for longer-term pain relief. We discussed scheduling and she agreed to be placed on a cancellation list for an earlier appointment. Patient Instructions - We will schedule you for a right sacroiliac joint injection. - This will begin with a diagnostic 'test shot' containing only numbing medicine to confirm if this joint is the source of your pain. - If the test injection helps your pain, you will be scheduled for a second injection with cortisone to provide longer-lasting relief. - You will be placed on a cancellation list in case an earlier appointment becomes available. - Continue with your home exercises. Coding Level of Care Code Est Pt Level 4 (85697) Diagnoses Sacroiliac dysfunction M53.3
== END 2025-06-09 11:41 | disposition home or self-care (01) ==
LOC: HO.PMC 10:38
PROVIDERS: PCP Internal Medicine Geriatric Medicine; Visit Provider Internal Medicine
DX: M53.3 Sacrococcygeal disorders, not elsewhere classified (principal)
CPT/HCPCS: 99214